=== PATIENT | female | born 1945 | race Caucasian/White ===

== ENCOUNTER → 2017-08-18 10:59 | Outpatient (CLI) | payer MEDICARE, OTHER, SELFPAY ==
--- NOTE | 2017-08-18 | DI.MG.S_ITS ---
BILATERAL DIGITAL SCREENING MAMMOGRAM 3D/2D WITH CAD: 08/18/2017 CLINICAL: Routine screening. Comparison is made to exams dated: 06/24/2016 mammogram, 05/02/2015 mammogram, and 04/20/2015 mammogram - [facility]. There are scattered fibroglandular elements in both breasts. Current study was also evaluated with a Computer Aided Detection (CAD) system. No significant masses, calcifications, or other findings are seen in either breast. There has been no significant interval change. IMPRESSION: NEGATIVE There is no mammographic evidence of malignancy. A 1 year screening mammogram is recommended. This exam was interpreted at Station ID: [id number]. NOTE: For mammograms, a report in lay terms will be sent to the patient. Approximately 15% of breast malignancies will not be visualized mammographically. In the management of a palpable breast mass, a negative mammogram must not discourage biopsy of a clinically suspicious lesion. Electronically Signed By: Manuel zarate/ervin:08/18/2017 12:22:54 letter sent: Normal Exam ACR BI-RADS Category 1: Negative 3341F
== END ==
PROVIDERS: PCP Family Medicine; Visit Provider Family Medicine
DX: Z12.31 Encounter for screening mammogram for malignant neoplasm of breast (principal)
CPT/HCPCS: 77063; 77067

== ENCOUNTER → 2017-09-10 08:22 | Outpatient (CLI) | payer MEDICARE, OTHER, SELFPAY ==
[2017-09-10 09:18] LABS: Add Manual Diff / Slide Review NO; Basophils Percent Auto 0.5 % (0-2); Eosinophils Percent Auto 4.4 % (2-4); Hematocrit 39.9 % (36-46); Hemoglobin 13.3 g/dL (12.0-16.0); Mean Corpuscular HGB Conc 33.4 % (30-36); Mean Corpuscular Volume 83.6 fL (80-100); Monocytes Percent Auto 8.3 % (3-14); Neutrophils Absolute Auto 4100 /uL (3000-5900); Neutrophils Percent Auto 55.8 % (50-75); Platelet Count 368 X10^3/uL (150-400); Red Blood Cell Count 4.77 X10^6/uL (4.0-5.2); Red Cell Distribution Width 13.5 % (11.6-14.8); White Blood Cell Count 7.3 X10^3/uL (4.5-11.0)
[2017-09-10 09:49] LABS: Alanine Aminotransferase 23 IU/L (9-52); Albumin Globulin Ratio 1.2 (1.0-2.8); Alkaline Phosphatase 86 U/L (38-126); Aspartate Aminotransferase 19 IU/L (14-36); BUN Creatinine Ratio 18.6 (6-22); Bilirubin Total 0.8 mg/dL (0.2-1.3); Blood Urea Nitrogen 13 mg/dL (7-17); Calcium 9.3 mg/dL (8.4-10.2); Carbon Dioxide 22 mmol/L (22-32); Chloride 104 mmol/L (98-107); Cholesterol 215 mg/dL (140-199); Estimated Glomerular Filt Rate > 60.0 mL/min (>60); Globulin 3.3 g/dL (1.7-4.1); Glucose 100 mg/dL (80-110); HDL Cholesterol 65 mg/dL (40-60); HEMOLYSIS < 15 (0-50); LDL Cholesterol Calculated 104 mg/dL (<100); Potassium 3.9 mmol/L (3.4-5.1); Sodium 138 mmol/L (137-145); Total Protein 7.3 g/dL (6.3-8.2); Triglycerides 230 mg/dL (35-150)
[2017-09-10 10:09] LABS: TSH w/ Reflex to FT4 1.52 uIU/mL (0.47-4.68)
== END ==
PROVIDERS: PCP Family Medicine; Visit Provider Family Medicine
DX: E78.2 Mixed hyperlipidemia (principal); Z00.00 Encounter for general adult medical examination without abnormal findings
CPT/HCPCS: 36415; 80053; 80061; 84443; 85025

== ENCOUNTER → 2017-09-16 09:51 | Outpatient (CLI) | payer MEDICARE, OTHER, SELFPAY ==
--- NOTE | 2017-09-16 09:54 | DI.RAD.S_ITS ---
PROCEDURE: XR CHEST 2V INDICATIONS: 72 year-old female with dyspnea. TECHNIQUE: 2 views of the chest were acquired. COMPARISON: [facility], CHEST 2 VIEW, 11/24/2013, 10:37. [facility], CHEST 2 VIEW, 02/17/2011, 13:53. [facility], CHEST 2 VIEW, 12/07/2007, 12:48. FINDINGS: Surgical changes and devices: None. Lungs and pleura: No pleural effusions or pneumothorax. Lungs are clear. Mediastinum: Mediastinal contours are normal. Heart size is normal. Bones and chest wall: No suspicious bony abnormalities. There is thoracolumbar spine disc degeneration. Soft tissues appear unremarkable. IMPRESSION: No acute cardiopulmonary disease. Dictated by: Manoj Mooney M.D. on 09/16/2017 at 10:06 Approved by: Manoj Mooney M.D. on 09/16/2017 at 10:07
== END ==
PROVIDERS: PCP Family Medicine; Visit Provider Family Medicine
DX: R06.00 Dyspnea, unspecified (principal); Z68.36 Body mass index [BMI] 36.0-36.9, adult
CPT/HCPCS: 71046

== ENCOUNTER 2017-12-01 09:49 | Day surgery (SDC) | payer MEDICARE, OTHER, SELFPAY ==
[2017-12-01 10:18] VITALS: BP 128/81; PULSE 97; RESP 16; TEMP 36.8; O2SAT 95
[2017-12-01] MEDS: FLEETS ENEMA 1 EACH PR (10:18)
[2017-12-01 10:19] VITALS: BMI 31.9
--- NOTE | 2017-12-01 11:20 | PM.HP.1 ---
History of Present Illness Date Patient Seen: 12/01/17 Time Patient Seen: 11:20 Chief complaint: Colonoscopy; 11530 Narrative: Patient is a woman who had polyps removed at the last colonoscopy 5 years ago. She is here in follow-up. Her father of colon cancer. Patient also has some issues with the hemorrhoids. They sometimes bleed her and she would like to have them treated if possible Patient History Medical History Abnormal chest x-ray (Chronic ~2012) Ankle pain (Chronic) Carpal tunnel syndrome (Chronic ~2008) Chronic back pain (Chronic ~1994) Colon polyps (Chronic ~2012) Eczema (Chronic) Fracture (Chronic) Fractures (Chronic ~2008) Headache (Chronic ~1979) Hearing loss (Chronic ~2008) Hemorrhoid (Chronic ~2009) History of urinary incontinence (Chronic ~2004) Irritable bowel syndrome (Chronic) Recurrent sinusitis (Chronic ~1979) Shoulder pain (Chronic ~2008) Measles (Resolved) Mumps (Resolved ~1951) Rubella (Resolved ~1958) Surgical History History of carpal tunnel repair History of knee replacement History of knee replacement Status post dilation and curettage Family & Social History Family History: Reviewed 12/01/17 by Warner Donahue MD Social History: household members spouse lives independently Yes caregiver/support person Yes: Daughters Tobacco & Substance use: Smoking Status Former smoker alcohol intake current Meds Home Medications Medication Instructions Recorded Confirmed Type Fish Oil (#FISH OIL) #0 02/12/11 09/16/17 History [CO Q10] #0 02/12/11 09/16/17 History cholecalciferol (vitamin D3) 1,000 unit PO QDAY #0 02/12/11 09/16/17 History [Vitamin D3] clobetasol [Temovate] 0.05 % TP SEE INSTRUCTIONS #60 tab 08/06/16 09/16/17 Rx sertraline [Zoloft] 50 mg PO QDAY #45 tab 08/06/16 09/16/17 Rx tolterodine [Detrol LA] 8 mg PO Q DAY #180 tab 09/01/17 09/16/17 Rx multivitamin tablet 1 tab PO DAILY 09/16/17 09/16/17 History vit C 150 mg-vit E 30 unit-lutein 1 cap PO DAILY 09/16/17 09/16/17 History 5 iv-xbnlbiey-aomra 3 150 mg capsule simvastatin [Zocor] 40 mg PO QDAY #90 tab 09/24/17 Rx conjugated estrogens [Premarin] 0.625 mg PO QDAY #90 tab 10/02/17 Rx medroxyprogesterone [Provera] 5 mg PO QDAY #90 tab 10/02/17 Rx Allergies Allergy/AdvReac Type Severity Reaction Status Date / Time dexamethasone [DEXAMETHASONE] Allergy Mild DIZZINESS Verified 12/01/17 10:29 AND DIARRHEA Sulfa (Sulfonamide Allergy Mild ITCHY Verified 12/01/17 10:29 Antibiotics) [SULFA (SULFONAMIDE ANTIBIOTICS)] Review of Systems Review of Systems All systems reviewed & are unremarkable except as noted in HPI and below Exam Vital Signs (past 8 hours): - 12/01/17 10:18 Temperature 98.2 F Pulse Rate 97 H Respiratory Rate 16 Blood Pressure 128/81 H Pulse Oximetry 95 Oxygen Delivery Method Room Air Narrative Exam Narrative: Operative no apparent distress. Her lungs are clear to auscultation. No rales or rhonchi. Heart regular rate and rhythm without murmur gallop. Abdomen is protuberant soft nontender without mass. She is alert and oriented x3. Assessment & Plan Plan: Assessment/Plan Narrative: Colonoscopy. Possible banding. I discussed the procedure with the patient. I have discussed the procedure and the rationale with the patient including risks of bleeding, perforation which would necessitate a major operation, failure to find remove all lesions and the potential to tattoo. They appeared to understand and wished to proceed. I also discussed banding with her. We may or may not do it depending on findings.
--- NOTE | 2017-12-01 11:23 | PM.PREOP ---
Pre-operative Note Interval Note Pre-op Check: Yes History & Physical exam performed today by Physician Changes: No ASA Class (for procedural sedation): II
[2017-12-01] MEDS: MIDAZOLAM 5 MG/5 ML VIAL IV (12:01)
[2017-12-01] MEDS: fentaNYL 250 MCG/5 ML INJ IV (12:01)
--- NOTE | 2017-12-01 12:02 | PM.OP.ENDO ---
Operative Date/Time/Diagnoses Date of procedure: 12/01/17 Time of procedure: 12:02 Pre-op diagnosis: Screening examination. Last exam 5 years ago. History of polyps. Family history colon cancer. Post-op diagnosis: same (Extensive sigmoid diverticulosis with tortuosity. Large external hemorrhoids. Internal hemorrhoids. Not amenable to banding.) Procedure & Clinicians Study performed: Colonoscopy to the ascending colon looking toward the cecum. Same procedure as scheduled: Yes Indications: Screening Surgeon: Warner Donahue Procedure Notes SCOAP/Timeout: Performed Procedure in detail: The patient was placed in the left lateral decubitus position and underwent IV sedation directed by the surgeon consisting of fentanyl and Versed. Digital exam was unremarkable. The scope was inserted and advanced through the rectum into the sigmoid, descending, transverse, and ascending colon.[Navigating through the sigmoid colon was quite difficult. The patient had diverticulosis with significant tortuosity and narrowing. Once through this area things went much smoother except the reached a point where I could advanced no further in the ascending colon. I simply ran out of scope. Multiple maneuvers were attempted including adding a stiffener, repositioning the patient, applying pressure but no matter what I tried I could not advance any further than this. There were small areas in the left colon that I did not see well due to the presence of particulate liquid stool.] The scope was gradually brought out. No Polyps were found. The scope ultimately was retroflexed in the rectum. The appearance was[remarkable for excoriated internal hemorrhoids.]. The scope was removed and the patient tolerated the procedure well. Consider barium study to evaluate the cecal area. Alternatively, the colonoscopy could per be performed in 3 years instead of 5 Scope withdrawal time: Greater than 5 min but not veronica Sedation minutes: 33 Recommendations: Colonscopy in 3 years and Other recommendation (Alternatively patient could have a barium study and if normal have a colonoscopy in 5 years.) Follow up: as needed Disposition: PACU
[2017-12-01 12:09] VITALS: BP 137/87; PULSE 104; RESP 22; TEMP 36.8; O2SAT 95
[2017-12-01 12:13] VITALS: BP 153/90; PULSE 99; RESP 17; TEMP 36.6; O2SAT 96
[2017-12-01 12:18] VITALS: BP 136/97; PULSE 96; RESP 13; TEMP 36.8; O2SAT 97
[2017-12-01 12:40] VITALS: BP 125/81; PULSE 86; RESP 16; TEMP 36.7; O2SAT 95
--- NOTE | 2017-12-01 15:11 | SUR.PHASEII ---
late entry: dr durand to bedside- explained report to both pt and her . pt dressed when ready and left in stable condition. belly soft.
== END 2017-12-01 12:55 | disposition home or self-care (01) ==
PROVIDERS: PCP Family Medicine; Visit Provider Specialist
PROC: 0DJD8ZZ Inspection of Lower Intestinal Tract, Via Natural or Artificial Opening Endoscopic (ICD-10-PCS; CPT 45378; principal; 2017-12-01 10:45)
DX: Z86.010 Personal history of colon polyps (principal); Z80.0 Family history of malignant neoplasm of digestive organs; Z87.891 Personal history of nicotine dependence; K57.30 Diverticulosis of large intestine without perforation or abscess without bleeding; K64.4 Residual hemorrhoidal skin tags; K64.8 Other hemorrhoids
CPT/HCPCS: G0105; 99152; 99153; J2250; J3010

== ENCOUNTER → 2018-09-14 09:15 | Outpatient (CLI) | payer MEDICARE, OTHER, SELFPAY ==
--- NOTE | 2018-09-14 | DI.MG.S_ITS ---
BILATERAL DIGITAL SCREENING MAMMOGRAM 3D/2D WITH CAD: 09/14/2018 CLINICAL: Routine screening. Comparison is made to exams dated: 08/18/2017 mammogram, 06/24/2016 mammogram, 04/20/2015 mammogram, 11/21/2013 mammogram, and 11/03/2012 mammogram - [facility]. The tissue of both breasts is heterogeneously dense. This may lower the sensitivity of mammography. Current study was also evaluated with a Computer Aided Detection (CAD) system. There are multiple oval circumscribed masses in both breasts which appear stable to comparison exams dating back to 08/18/2017 and 06/24/2016. There also is a biopsy clip in the right breast. No new or suspicious masses, calcifications, or other findings are seen in either breast. There has been no significant interval change. IMPRESSION: There is no mammographic evidence of malignancy. A 1 year screening mammogram is recommended. This exam was interpreted at Station ID: [id number]. NOTE: For mammograms, a report in lay terms will be sent to the patient. Approximately 15% of breast malignancies will not be visualized mammographically. In the management of a palpable breast mass, a negative mammogram must not discourage biopsy of a clinically suspicious lesion. Electronically Signed By: Mathtew Haas M.D. ecl/:09/14/2018 12:49:25 letter sent: Normal Exam ACR BI-RADS Category 2: Benign Finding(s) 3342F
== END ==
PROVIDERS: PCP Family Medicine; Visit Provider Family Medicine
DX: Z12.31 Encounter for screening mammogram for malignant neoplasm of breast (principal)
CPT/HCPCS: 77063; 77067

== ENCOUNTER → 2018-09-14 10:01 | Outpatient (CLI) | payer MEDICARE, OTHER, SELFPAY ==
[2018-09-14 11:43] LABS: Add Manual Diff / Slide Review NO; Basophils Absolute Auto 0 /uL (0-100); Basophils Percent Auto 0.5 % (0-2); Eosinophils Absolute Auto 200 /uL (0-450); Eosinophils Percent Auto 3.3 % (2-4); Hemoglobin 13.4 g/dL (12.0-16.0); Lymphocytes Absolute Auto 1900 /uL (1100-4500); Lymphocytes Percent Auto 24.9 % (25-40); Mean Corpuscular HGB Conc 33.4 % (30-36); Mean Corpuscular Hemoglobin 28.3 PG (26-34); Mean Corpuscular Volume 84.7 fL (80-100); Monocytes Absolute Auto 600 /uL (0-900); Monocytes Percent Auto 7.7 % (3-14); Neutrophils Absolute Auto 4800 /uL (1500-7000); Neutrophils Percent Auto 63.6 % (50-75); Platelet Count 389 X10^3/uL (150-400); Red Blood Cell Count 4.72 X10^6/uL (4.0-5.2); Red Cell Distribution Width 13.6 % (11.6-14.8); White Blood Cell Count 7.6 X10^3/uL (4.5-11.0)
[2018-09-14 12:01] LABS: Alanine Aminotransferase 11 IU/L (9-52); Albumin 4.2 g/dL (3.5-5.0); Albumin Globulin Ratio 1.4 (1.0-2.8); Alkaline Phosphatase 86 U/L (38-126); Aspartate Aminotransferase 19 IU/L (14-36); BUN Creatinine Ratio 15.6 (6-22); Bilirubin Total 1.1 mg/dL (0.2-1.3); Blood Urea Nitrogen 14 mg/dL (7-17); Calcium 9.8 mg/dL (8.4-10.2); Carbon Dioxide 27 mmol/L (22-32); Chloride 103 mmol/L (98-107); Cholesterol 210 mg/dL (140-199); Estimated Glomerular Filt Rate > 60.0 mL/min (>60); Glucose 95 mg/dL (80-110); HDL Cholesterol 78 mg/dL (40-60); HEMOLYSIS < 15 (0-50); LDL Cholesterol Calculated 99 mg/dL (<100); Sodium 139 mmol/L (137-145); Total Protein 7.2 g/dL (6.3-8.2); Triglycerides 164 mg/dL (35-150)
[2018-09-14 12:02] LABS: Potassium 5.5 mmol/L (3.4-5.1)
== END ==
PROVIDERS: PCP Family Medicine; Visit Provider Family Medicine
DX: E78.5 Hyperlipidemia, unspecified (principal); Z01.89 Encounter for other specified special examinations; Z13.29 Encounter for screening for other suspected endocrine disorder; Z13.6 Encounter for screening for cardiovascular disorders
CPT/HCPCS: 36415; 80053; 80061; 84443; 85025

== ENCOUNTER → 2018-10-14 10:49 | Outpatient (CLI) | payer MEDICARE, OTHER, SELFPAY ==
--- NOTE | 2018-10-22 17:18 | P.PFT.S_ITS ---
Pulmonary Function Test Referral & Results Date Patient Seen: 10/14/18 Requesting provider: Jc Tomlinson Results: The spirometry demonstrates an FVC of 2.53 L which is 69% of predicted. The FEV1 was measured at 2.02 L which is 78% of predicted. The FEV1/FVC ratio was 86 which is or 113% of predicted. Following the administration of bronchodilator there was 10% improvement in FEV1 and a 70% improvement in FEF 25-75%. Lung volumes show an SVC of 2.47 L which is 77% of predicted. The diffusing capacity was measured at 20.34 which is 70% of predicted. No hemoglobin value was provided, so no correction for potential anemia could be made, if appropriate. The maximum voluntary ventilation was reduced Interpretation: This study demonstrates mild obstructive lung disease based on reduction in FE V1. There is some limited evidence of benefit following bronchodilator particularly small airway flow based on improvement in FEF 25-75% There is mild reduction in lung volumes suggesting mild restrictive lung disease There is also [id number] reduction in diffusing capacity suggesting disease at the capillary alveolar level
== END ==
PROVIDERS: PCP Family Medicine; Visit Provider Family Medicine
DX: R06.02 Shortness of breath (principal)
CPT/HCPCS: 94060; 94726; 94729

== ENCOUNTER → 2018-10-27 09:00 | Outpatient (CLI) | payer MEDICARE, OTHER, SELFPAY ==
--- NOTE | 2018-10-27 09:05 | DI.ECHO.S_ITS ---
[facility]---------[facility] +---------+ : : [address] [place] : : : : [id number] : : : : Phone: [phone]+ Echocardiogram Report + + :Name: MELANI SPAIN Study Date: 10/27/2018 Height: 68 in : :[facility] Exam Location: [facility] Weight: 235 lb : : Gender: Female BSA: 2.2 m2 : :: 1945 Age: 73 yrs BP: 140/82 mmHg: :Reason For Study: SOB/ edema : :Ordering Physician: Dr. Greene : :Davi Performed By: Liilan Page : + + Interpretation Summary 1) Grossly normal left ventricular size, thickness, and systolic function (EF 60-65%). 2) Grossly, normal right ventricular size and function. 3) There is mild aortic stenosis (valve area 1.5cm2, mean gradient 9.4mmHg). 4) The right ventricular systolic pressure is estimated to be at least 25 mmHg based on an estimated right atrial pressure of 3 mm Hg. 5) No prior Echo available for comparison. Procedure: A two-dimensional transthoracic echocardiogram with color flow and Doppler was performed. The study quality was technically adequate. There is no prior echocardiogram noted for this patient. A contrast injection of Definity was performed to improve assessment of LV function. The heart rate ranged between 78-91 bpm during the study. Left Ventricle: The left ventricle is grossly normal in size and thickness. Proximal septal thickening is noted. The ejection fraction is estimated to be 60-65%. Left ventricular systolic function is normal. There are no focal wall motion abnormalities. Right Ventricle: The right ventricle is normal in size and function. Atria: Both atria are normal in size. There is no Doppler evidence for an interatrial shunt. Mitral Valve: The mitral valve leaflets appear mildly thickened, but open well. There is trace mitral regurgitation. Aortic Valve: The aortic valve is not well visualized. The aortic valve is mildly calcified. The peak aortic velocity is 2.0 m/sec. The aortic valve mean gradient is 9.4 mmHg. The calculated aortic valve area is 1.5 cm2. There is mild aortic stenosis. No aortic regurgitation is present. Tricuspid Valve: The tricuspid valve is normal in structure and function. There is trace tricuspid regurgitation. The right ventricular systolic pressure is estimated to be at least 25 mmHg based on an estimated right atrial pressure of 3 mm Hg. Pulmonic Valve: The pulmonic valve is not well visualized. There is trace pulmonic regurgitation. Great Vessels: The aortic root is normal size. The ascending aorta is mildly enlarged. The pulmonary artery is not well visualized, but is probably normal size. The IVC is of normal diameter and collapses greater than 50% with a sniff. This suggests a low right atrial pressure of 3 mm Hg. Pericardium/ Pleura There is no pericardial effusion. There is no pleural effusion. MMode/2D Measurements & Calculations LVIDd: 4.8 cm LVOT diam: 2.0 cm EPSS: 0.43 cm Ao root diam: 3.4 cm IVSd: 1.1 cm asc Aorta Diam: 3.5 cm LVPWd: 0.94 cm LV chacon. diameter/BSA (cm/m^2): 2.2 LA A2 area: 21.5 cm2 RA long axis: 5.6 cm LA A4 area: 22.6 cm2 RA area: 17.8 cm2 LA length (vol): 6.2 cm RA vol: 48.2 ml LA vol: 66.5 ml RA : 22.0 ml/m2 LA vol index: 30.4 ml/m2 RVD1 (basal): 4.3 cm RVD2 (mid): 3.9 cm TAPSE: 2.0 cm Doppler Measurements & Calculations Ao V2 max: 203.2 cm/sec LVOT Max Jimbo: 92.6 cm/sec Ao V2 mean: 149.0 cm/sec LV V1 max P.4 mmHg Ao max P.5 mmHg LV V1 VTI: 19.6 cm Ao mean P.4 mmHg MARILU(I,D): 1.5 cm2 Ao V2 VTI: 41.3 cm MARILU(V,D): 1.5 cm2 sev ratio: 0.47 MARILU indexed to BSA (cm^2/m^2): 0.70 MV E max jimbo: 72.0 cm/sec TR max jimbo: 232.8 cm/sec MV A max jimbo: 111.5 cm/sec TR max P.7 mmHg MV E/A: 0.65 PA V2 max: 66.2 cm/sec Med Peak E' Jimbo: 6.4 cm/sec PA V2 mean: 47.3 cm/sec E/E' med: 11.3 PA mean P.98 mmHg Lat Peak E' Jimbo: 8.3 cm/sec PA Accel Time: 0.08 sec E/E' lat: 8.7 E/e' average: 10.0 MV dec time: 0.13 sec MV P1/2t: 38.5 msec MV /2t max jimbo: 75.1 cm/sec SV(LVOT): 63.0 ml MVA(2t): 5.7 cm2 Reading Physician:02:22 PM
[2018-10-27 09:46] LABS: BUN Creatinine Ratio 16.3 (6-22); Blood Urea Nitrogen 13 mg/dL (7-17); Estimated Glomerular Filt Rate > 60.0 mL/min (>60)
--- NOTE | 2018-10-27 10:09 | DI.CT.S_ITS ---
PROCEDURE: CT CHEST W CON INDICATIONS: shortness of breath TECHNIQUE: After the administration of intravenous contrast, 5 mm thick sections acquired from the pulmonary apices to the posterior costophrenic angles. 1 mm axial lung, 5 mm thick coronal and sagittal reformats and 7 mm axial MIP were acquired. For radiation dose reduction, the following was used: automated exposure control, adjustment of mA and/or kV according to patient size. COMPARISON: [facility], CR, XR CHEST 2V, 09/16/2017, 9:52. [facility], CT, ABDOMEN/PELVIS WITH CONTRAST, 09/24/2010, 8:05. FINDINGS: Image quality: Excellent. Lungs and pleura: No acute air space opacities. Mild dependent interstitial prominence. No honeycombing or bronchiectasis. No pleural effusions or pneumothorax. Central and peripheral airways are patent and normal in caliber. Mediastinum: Heart size is normal. Coronary artery calcifications. No pericardial effusion. No mediastinal or hilar adenopathy by size criteria. Thoracic aorta and central pulmonary arteries are normal in size. No central pulmonary embolism. Esophagus is normal in caliber. No hiatal hernia. Bones and chest wall: No suspicious bony lesions. No vertebral body compression fractures. No axillary or supraclavicular adenopathy by size criteria. Thyroid gland is unremarkable. Abdomen: Visualized upper abdominal solid organs appear normal. Upper abdominal bowel loops are normal in caliber. IMPRESSION: 1. No consolidation to suggest pneumonia. 2. Mild dependent interstitial prominence. Favor atelectasis and less likely early interstitial lung disease. Dedicated high-resolution chest CT with the prone and inspiration and expiration imaging could be performed if clinically indicated. Dictated by: Memo Lopez M.D. on 10/27/2018 at 10:53 Approved by: Memo Lopez M.D. on 10/27/2018 at 11:02
== END ==
PROVIDERS: PCP Family Medicine; Visit Provider Family Medicine
DX: I35.0 Nonrheumatic aortic (valve) stenosis (principal); R06.02 Shortness of breath; R94.2 Abnormal results of pulmonary function studies; R60.9 Edema, unspecified; Z01.812 Encounter for preprocedural laboratory examination
CPT/HCPCS: 36415; 71260; 82565; 84520; C8929; Q9957; Q9967

== ENCOUNTER → 2019-10-11 09:18 | Outpatient (CLI) | payer MEDICARE, OTHER, SELFPAY ==
[2019-10-11 09:31] LABS: Add Manual Diff / Slide Review NO; Basophils Absolute Auto 100 /uL (0-100); Basophils Percent Auto 0.6 % (0-2); Eosinophils Absolute Auto 300 /uL (0-450); Eosinophils Percent Auto 3.1 % (2-4); Hematocrit 41.9 % (36-46); Hemoglobin 13.6 g/dL (12.0-16.0); Lymphocytes Absolute Auto 3000 /uL (1100-4500); Lymphocytes Percent Auto 31.4 % (25-40); Mean Corpuscular HGB Conc 32.5 % (30-36); Mean Corpuscular Hemoglobin 27.5 PG (26-34); Mean Corpuscular Volume 84.3 fL (80-100); Monocytes Absolute Auto 700 /uL (0-900); Monocytes Percent Auto 7.1 % (3-14); Neutrophils Absolute Auto 5500 /uL (1500-7000); Neutrophils Percent Auto 57.8 % (50-75); Platelet Count 398 X10^3/uL (150-400); Red Blood Cell Count 4.97 X10^6/uL (4.0-5.2); Red Cell Distribution Width 13.9 % (11.6-14.8); White Blood Cell Count 9.5 X10^3/uL (4.5-11.0)
[2019-10-11 09:45] LABS: Alanine Aminotransferase 13 IU/L (<35); Albumin 4.2 g/dL (3.5-5.0); Albumin Globulin Ratio 1.4 (1.0-2.8); Alkaline Phosphatase 91 U/L (38-126); Aspartate Aminotransferase 22 IU/L (14-36); BUN Creatinine Ratio 16.9 (6-22); Bilirubin Total 1.1 mg/dL (0.2-1.3); Blood Urea Nitrogen 13 mg/dL (7-17); Calcium 9.8 mg/dL (8.4-10.2); Carbon Dioxide 21 mmol/L (22-32); Chloride 107 mmol/L (98-107); Cholesterol 216 mg/dL (140-199); Estimated Glomerular Filt Rate > 60.0 mL/min (>60); Globulin 2.9 g/dL (1.7-4.1); Glucose 121 mg/dL (80-110); HDL Cholesterol 73 mg/dL (40-60); HEMOLYSIS < 15 (0-50); LDL Cholesterol Calculated 96 mg/dL (<100); Potassium 4.3 mmol/L (3.4-5.1); Sodium 137 mmol/L (137-145); Total Protein 7.1 g/dL (6.3-8.2); Triglycerides 234 mg/dL (35-150)
== END ==
PROVIDERS: PCP Family Medicine; Referring Provider Family Medicine; Visit Provider Family Medicine
DX: E78.5 Hyperlipidemia, unspecified (principal)
CPT/HCPCS: 36415; 80053; 80061; 85025

== ENCOUNTER → 2019-10-22 14:32 | Outpatient (CLI) | payer MEDICARE, OTHER, SELFPAY ==
--- NOTE | 2019-10-22 | DI.MG.S_ITS ---
BILATERAL DIGITAL SCREENING MAMMOGRAM 3D/2D WITH CAD: 10/22/2019 CLINICAL: Routine screening. Comparison is made to exams dated: 09/14/2018 mammogram, 08/18/2017 mammogram, and 06/24/2016 mammogram - [facility]. The tissue of both breasts is heterogeneously dense. This may lower the sensitivity of mammography. Current study was also evaluated with a Computer Aided Detection (CAD) system. There are benign masses in both breasts. There also is a biopsy clip in the right breast. No significant masses, calcifications, or other findings are seen in either breast. There has been no significant interval change. IMPRESSION: There is no mammographic evidence of malignancy. A 1 year screening mammogram is recommended. This exam was interpreted at Station ID: [id number]. NOTE: For mammograms, a report in lay terms will be sent to the patient. Approximately 15% of breast malignancies will not be visualized mammographically. In the management of a palpable breast mass, a negative mammogram must not discourage biopsy of a clinically suspicious lesion. Electronically Signed By: Xander tang/ervin:10/24/2019 09:37:31 letter sent: Normal Exam ACR BI-RADS Category 2: Benign Finding(s) 3342F
== END ==
PROVIDERS: PCP Family Medicine; Referring Provider Family Medicine; Visit Provider Family Medicine
DX: Z12.31 Encounter for screening mammogram for malignant neoplasm of breast (principal)
CPT/HCPCS: 77063; 77067

== ENCOUNTER → 2020-06-12 09:39 | Outpatient (CLI) | payer MEDICARE, OTHER, SELFPAY ==
[2020-06-12 11:23] LABS: BUN Creatinine Ratio 17.7 (6-22); Blood Urea Nitrogen 14 mg/dL (7-17); Calcium 9.3 mg/dL (8.4-10.2); Carbon Dioxide 23 mmol/L (22-32); Chloride 106 mmol/L (98-107); Estimated Glomerular Filt Rate > 60.0 mL/min (>60); Glucose 99 mg/dL (80-110); HEMOLYSIS < 15 (0-50); Potassium 4.1 mmol/L (3.4-5.1); Sodium 135 mmol/L (137-145)
[2020-06-12 11:26] LABS: Hemoglobin A1C% w Est Avg Glu 5.8 % (4.0-6.0)
== END ==
PROVIDERS: Referring Provider Family Medicine; Visit Provider Family Medicine
DX: R73.9 Hyperglycemia, unspecified (principal)
CPT/HCPCS: 36415; 80048; 83036

== ENCOUNTER → 2020-07-12 12:56 | Outpatient (CLI) | payer MEDICARE, OTHER, SELFPAY ==
--- NOTE | 2020-07-12 13:00 | DI.RAD.S_ITS ---
PROCEDURE: XR WRIST LT MIN 3V INDICATIONS: Progressive left wrist pain TECHNIQUE: 4 views of the wrist were acquired. COMPARISON: None. FINDINGS: Bones: No fractures or dislocations. No suspicious bony lesions. There is dkdn-ww-bzdyuskp degenerative joint disease at the radiocarpal joint, triscaphe joint, and 1st carpometacarpal joint. Scaphoid view: Scaphoid is intact. Soft tissues: No suspicious soft tissue calcifications. IMPRESSION: Ljay-yl-ddxxkdod degenerative joint disease. Dictated by: Radha Jose M.D. on 07/12/2020 at 16:47 Approved by: Radha Jose M.D. on 07/12/2020 at 17:09
== END ==
PROVIDERS: PCP Family Medicine; Referring Provider Family Medicine; Visit Provider Family Medicine
DX: M25.532 Pain in left wrist (principal); M19.032 Primary osteoarthritis, left wrist
CPT/HCPCS: 73110

== ENCOUNTER → 2020-10-22 16:18 | Outpatient (CLI) | payer MEDICARE, OTHER, SELFPAY ==
[2020-10-22 17:26] LABS: Add Manual Diff / Slide Review NO; Basophils Absolute Auto 0 /uL (0-100); Basophils Percent Auto 0.6 % (0-2); Eosinophils Absolute Auto 200 /uL (0-450); Eosinophils Percent Auto 2.2 % (2-4); Lymphocytes Absolute Auto 2300 /uL (1100-4500); Lymphocytes Percent Auto 27.5 % (25-40); Mean Corpuscular HGB Conc 33.3 % (30-36); Mean Corpuscular Hemoglobin 28.4 PG (26-34); Mean Corpuscular Volume 85.1 fL (80-100); Monocytes Absolute Auto 800 /uL (0-900); Monocytes Percent Auto 9.3 % (3-14); Neutrophils Absolute Auto 5000 /uL (1500-7000); Neutrophils Percent Auto 60.4 % (50-75); Platelet Count 353 X10^3/uL (150-400); Red Blood Cell Count 4.58 X10^6/uL (4.0-5.2); Red Cell Distribution Width 13.2 % (11.6-14.8); White Blood Cell Count 8.2 X10^3/uL (4.5-11.0)
[2020-10-22 18:12] LABS: Alanine Aminotransferase 13 IU/L (<35); Albumin 4.1 g/dL (3.5-5.0); Albumin Globulin Ratio 1.3 (1.0-2.8); Alkaline Phosphatase 73 U/L (38-126); Aspartate Aminotransferase 24 IU/L (14-36); BUN Creatinine Ratio 18.9 (6-22); Bilirubin Total 0.5 mg/dL (0.2-1.3); Blood Urea Nitrogen 17 mg/dL (7-17); Calcium 9.9 mg/dL (8.4-10.2); Carbon Dioxide 26 mmol/L (22-32); Chloride 107 mmol/L (98-107); Estimated Glomerular Filt Rate > 60.0 mL/min (>60); Globulin 3.2 g/dL (1.7-4.1); Glucose 94 mg/dL (80-110); HEMOLYSIS < 15 (0-50); Potassium 4.7 mmol/L (3.4-5.1); Sodium 139 mmol/L (137-145); Total Protein 7.3 g/dL (6.3-8.2)
[2020-10-22 18:44] LABS: TSH w/ Reflex to FT4 1.05 uIU/mL (0.47-4.68)
== END ==
PROVIDERS: PCP Family Medicine; Referring Provider Family Medicine; Visit Provider Family Medicine
DX: R00.2 Palpitations (principal); T73.3XXA Exhaustion due to excessive exertion, initial encounter
CPT/HCPCS: 36415; 80053; 84443; 85025

== ENCOUNTER → 2020-11-02 14:21 | Outpatient (CLI) | payer MEDICARE, OTHER, SELFPAY ==
--- NOTE | 2020-11-02 14:24 | DI.US.S_ITS ---
PROCEDURE: US CAROTID DOPPLER BI INDICATIONS: VERTIGO TECHNIQUE: Color and pulse Doppler interrogation was performed of both carotid systems, with image documentation and velocity measurements. COMPARISON: None. FINDINGS: Stenosis calculations are based on SRU (Society of Radiologists in Ultrasound) criteria. Right side: Brachial blood pressure: 138/90 mm Hg. Common carotid artery peak systolic velocity: 67 cm/sec. Internal carotid artery peak systolic velocity: 55 cm/sec. Internal carotid artery end diastolic velocity: 20 cm/sec. External carotid artery peak systolic velocity: 77 cm/sec. ICA/CCA peak systolic ratio: 0.83 . Yu scale imaging description: Mild mixed plaque formation at the bifurcation and origin of the extracranial internal carotid artery. Percent internal carotid artery stenosis: No appreciable stenosis.. Vertebral artery: Flow direction is antegrade. Left side: Brachial blood pressure: 142/86 mm Hg. Common carotid artery peak systolic velocity: 67 cm/sec. Internal carotid artery peak systolic velocity: 88 cm/sec. Internal carotid artery end diastolic velocity: 32 cm/sec. External carotid artery peak systolic velocity: 105 cm/sec. ICA/CCA peak systolic ratio: 1.32 . Yu scale imaging description: Mild mixed plaque formation in the left carotid bulb and origin of the left extracranial internal carotid artery. Percent internal carotid artery stenosis: Approximately 25-50 percent. . Vertebral artery: Flow direction is antegrade. IMPRESSION: No hemodynamically significant narrowing of the carotid systems. Dictated by: Stiven Aldrich M.D. on 11/02/2020 at 16:02 Approved by: Stiven Aldrich M.D. on 11/02/2020 at 16:04
== END ==
PROVIDERS: PCP Family Medicine; Referring Provider Family Medicine; Visit Provider Family Medicine
DX: R42 Dizziness and giddiness (principal); R00.2 Palpitations; T73.3XXA Exhaustion due to excessive exertion, initial encounter
CPT/HCPCS: 93880

== ENCOUNTER → 2021-01-02 13:25 | Outpatient (CLI) | payer MEDICARE, OTHER, SELFPAY ==
[2021-01-02 14:35] LABS: COVID19 -Nasal RAPID Negative (Negative)
== END ==
PROVIDERS: PCP Family Medicine; Visit Provider Physician Assistant
DX: Z20.822 Contact with and (suspected) exposure to COVID-19 (principal)
CPT/HCPCS: 87635

== ENCOUNTER → 2021-01-04 10:40 | Outpatient (CLI) | payer MEDICARE, OTHER, SELFPAY ==
--- NOTE | 2021-01-04 | DI.NM.S_ITS ---
PROCEDURE: NM ASHLEY PERF SPECT REST & STR Rest and exercise myocardial perfusion SPECT with gated imaging and ejection fraction RADIOPHARMACEUTICAL: 25.0 mCi Tc-99m sestamibi IV at rest and 27.5 mCi Tc-99m sestamibi IV at peak exercise. A two day-protocol was performed. INDICATIONS: Other chest pain TECHNIQUE: Radiopharmaceutical was injected at peak stress test, and also at rest. SPECT images were obtained. SPECT myocardial perfusion images were displayed in short axis, horizontal long axis, and vertical long axis views. Gated images were reviewed using [employer] software. COMPARISON: None. CARDIAC STRESS: A standard Joshua treadmill exercise tolerance test was performed by the patient under the supervision of an attending staff. The patient exercised for 3 minutes and 36 seconds; functional aerobic impairment (NIKKI) is +43%%. Hemodynamic data: There is normal blood pressure and heart rate response to exercise stress. Patient achieved 110% of maximum predicted heart rate at peak exercise. Symptoms: Patient denied chest pain during exercise. EKG: No diagnostic EKG changes of ischemia; no ectopy. FINDINGS: Raw data: There is good myocardial labeling by radiotracer. No significant motion artifacts. Qytj-bx-ujikn ratio is 0.25 (normal is less than 0.38 for sestamibi tracer, and less than 0.50 for thallium tracer). Left ventricle function: Gated images demonstrate normal left ventricle wall thickening. No segmental wall motion abnormality. No transient ischemic dilation; TID is 0.79 (normal less than 1.3). The left ventricle resting end-diastolic volume is 69 mL. Left ventricle stress ejection fraction is 88%; normal values are above 45%. Myocardial perfusion: There is mildy intense apical defect at rest that improves with stress and nearly resolves with prone imaging, suggesting artifact than true ischemia or infarction. IMPRESSION: Low risk, probably normal treadmill nuclear stress test 1) No perfusion evidence of ischemia or infarction. There is mildy intense apical defect at rest that improves with stress and nearly resolves with prone imaging, suggesting artifact than true ischemia or infarction. 2) Normal left ventricular size, wall motion, and systolic function (EF post stress 88%). 3) No ECG evidence of ischemia. 4) No angina during the study. 5) Significantly reduced exercise tolerance (4.6 METs, NIKKI +43%). Target heart rate achieved. Appropriate BP response to exercise. 6) Compared to the nuclear stress test done 10/15/2010, no significant change. Dictated by: Mily Phipps MD on 01/07/2021 at 16:13 Approved by: Mily Phipps MD on 01/07/2021 at 16:17
== END ==
PROVIDERS: PCP Family Medicine; Referring Provider Internal Medicine Cardiovascular Disease; Visit Provider Internal Medicine Cardiovascular Disease
DX: R07.89 Other chest pain (principal)
CPT/HCPCS: 78452; 93017; A9502

== ENCOUNTER → 2021-01-17 07:52 | Outpatient (CLI) | payer MEDICARE, OTHER, SELFPAY ==
--- NOTE | 2021-01-17 | DI.ECHO.S_ITS ---
[facility] +---------+ : : [address] : : : : [id number] : : : : Phone: [phone]+ Echocardiogram Report + + :Name: MELANI SPAIN Study Date: 01/17/2021 Height: 68 in : :[facility] ReadingLocation: Weight: 231 lb : : Gender: Female BSA: 2.2 m2 : :: 1945 Age: 75 yrs BP: 148/92 mmHg: :Reason For Study: Chest pain, SOB : : Performed By: JOSE FLETCHER : :Referring: PROSPER MACIAS E : + + Interpretation Summary 1) Small normal left ventricular cavity size with mildly increased left ventricular thickness (concentric), and normal systolic function (EF 60-65%). 2) Grossly, normal right ventricular size and function. 3) There is mild aortic stenosis (valve area 1.6cm2, mean gradient 13mmHg). 4) The right ventricular systolic pressure is estimated to be at least 22 mmHg based on an estimated right atrial pressure of 3 mm Hg. 5) Compared to the Echo done 10/27/2018, no significant change. Procedure: A two-dimensional transthoracic echocardiogram with color flow and Doppler was performed. The study quality was technically difficult. Comparison is made with the echocardiogram of 10/27/2018. A contrast injection of Definity was performed to improve assessment of LV function. The patient was in normal sinus rhythm during the exam. Left Ventricle: The left ventricular cavity is small. There is mild concentric left ventricular hypertrophy. There is mild proximal septal thickening noted. Left ventricular systolic function appears normal without focal wall motion abnormalities. The ejection fraction is estimated to be 60- 65%. Right Ventricle: The right ventricle is normal in size and function. Atria: The left atrial size is normal. The right atrium is mildly dilated. There is no Doppler evidence for an interatrial shunt. The thickening of interatrial septum suggests lipomatous hypertrophy. The atrial septum is aneurysmal. Mitral Valve: There is mild mitral annular calcification. There is trace mitral regurgitation. Aortic Valve: The aortic valve is trileaflet. There is mildly reduced leaflet mobility. The aortic valve is mildly calcified. The peak aortic velocity is 2.4 m/sec. The aortic valve mean gradient is 13 mmHg. There is mild aortic stenosis. There is trace aortic regurgitation. Tricuspid Valve: The tricuspid valve is normal. There is trace tricuspid regurgitation. The right ventricular systolic pressure is estimated to be at least 22 mmHg based on an estimated right atrial pressure of 3 mm Hg. Pulmonic Valve: The pulmonic valve leaflets are thin and pliable; valve motion is normal. There is a trace or physiologic amount of pulmonic regurgitation. Great Vessels: The aortic root is normal size. The ascending aorta is normal in size. The aortic arch is normal in size. The IVC is of normal diameter and collapses greater than 50% with a sniff. This suggests a low right atrial pressure of 3 mm Hg. Pericardium/ Pleura There is no pericardial effusion. There is an anterior echo-free space consistent with a fat pad. There is no pleural effusion. MMode/2D Measurements & Calculations LVIDd: 2.2 cm LVOT diam: 1.9 cm LVIDs: 1.5 cm Ao root diam: 2.7 cm FS: 32.6 % asc Aorta Diam: 3.5 cm IVSd: 1.1 cm Ao Arch Diam (Prox Trans): 2.3 cm LVPWd: 1.2 cm LV chacon. diameter/BSA (cm/m^2): 1.0 LV sys. diameter/BSA (cm/m^2): 0.70 LA A2 area: 15.8 cm2 RA long axis: 4.1 cm LA A4 area: 17.7 cm2 RA area: 15.7 cm2 LA length (vol): 5.2 cm RA vol: 51.4 ml LA vol: 45.2 ml RA : 23.7 ml/m2 LA vol index: 20.8 ml/m2 IVC diam: 1.7 cm RVD1 (basal): 3.2 cm TAPSE: 2.1 cm Doppler Measurements & Calculations Ao V2 max: 242.4 cm/sec LVOT Max Jimbo: 137.5 cm/sec Ao V2 mean: 173.1 cm/sec LV V1 max P.6 mmHg Ao max P.5 mmHg LV V1 VTI: 26.0 cm Ao mean P.0 mmHg MARILU(I,D): 1.6 cm2 Ao V2 VTI: 44.8 cm MARILU(V,D): 1.6 cm2 sev ratio: 0.58 MARILU indexed to BSA (cm^2/m^2): 0.75 MV E max jimbo: 69.5 cm/sec TR max jimbo: 216.8 cm/sec MV A max jimbo: 102.0 cm/sec TR max P.8 mmHg MV E/A: 0.68 PA V2 max: 83.7 cm/sec Med Peak E' Jimbo: 4.7 cm/sec PA V2 mean: 66.0 cm/sec E/E' med: 14.7 PA mean P.8 mmHg Lat Peak E' Jimbo: 8.5 cm/sec PA pr(Accel): 31.0 mmHg E/E' lat: 8.1 E/e' average: 11.4 MV dec time: 0.19 sec SV(LVOT): 72.7 ml Reading Physician:10:26 AM
== END ==
PROVIDERS: PCP Family Medicine; Referring Provider Internal Medicine Cardiovascular Disease; Visit Provider Internal Medicine Cardiovascular Disease
DX: R06.02 Shortness of breath (principal); I35.0 Nonrheumatic aortic (valve) stenosis
CPT/HCPCS: 93306; Q9957

== ENCOUNTER → 2021-01-28 08:40 | Outpatient (CLI) | payer MEDICARE, OTHER, SELFPAY ==
[2021-01-28 10:35] LABS: Cholesterol 201 mg/dL (140-199); HDL Cholesterol 64 mg/dL (40-60); LDL Cholesterol Calculated 94 mg/dL (<100); Triglycerides 217 mg/dL (35-150)
== END ==
PROVIDERS: PCP Family Medicine; Referring Provider Internal Medicine Cardiovascular Disease; Visit Provider Internal Medicine Cardiovascular Disease
DX: E78.5 Hyperlipidemia, unspecified (principal)
CPT/HCPCS: 36415; 80061

== ENCOUNTER 2021-05-13 13:15 | Observation (INO) | payer MEDICARE, OTHER, SELFPAY ==
[2021-05-13 13:25] VITALS: BP 141/72; PULSE 84; RESP 20; TEMP 37; O2SAT 98
--- NOTE | 2021-05-13 13:25 | DI.RAD.S_ITS ---
PROCEDURE: XR CHEST 1V INDICATIONS: Possible stroke TECHNIQUE: One view of the chest was acquired. COMPARISON: [facility], CT, CT CHEST W CON, 10/27/2018, 10:26. [facility], CR, XR CHEST 2V, 09/16/2017, 9:52. [facility], CR, XR CHEST 2 VIEWS, 02/14/2021, 14:51. FINDINGS: Surgical changes and devices: None. Lungs and pleura: Lungs are clear. No pleural effusions or pneumothorax. Mediastinum: Mediastinal contours appear normal. Heart size is normal. Bones and chest wall: No suspicious bony lesions. Overlying soft tissues appear unremarkable. IMPRESSION: No acute cardiopulmonary disease. Dictated by: Radha Jose M.D. on 05/13/2021 at 13:48 Approved by: Radha Jose M.D. on 05/13/2021 at 13:50
--- NOTE | 2021-05-13 13:36 | DI.CT.S_ITS ---
PROCEDURE: CT HEAD/BRAIN WO CON INDICATIONS: stroke symptoms w/ nausea TECHNIQUE: Noncontrast 4.5 mm thick angled axial sections acquired from the foramen magnum to the vertex, with coronal and sagittal reformats. For radiation dose reduction, the following was used: automated exposure control, adjustment of mA and/or kV according to patient size. COMPARISON: [facility], CT, ANGIO HEAD, 09/27/2010, 7:46. FINDINGS: Image quality: Excellent. CSF spaces: Basal cisterns are patent. No extra-axial fluid collections. The ventricles are symmetric in size and shape. Brain: No intracranial bleeds or masses. There is moderate cerebral volume loss for age, with resultant ventricular and sulcal prominence. There are moderate to severe periventricular and deep white matter chronic small vessel ischemic changes. There is intracranial internal carotid artery atherosclerosis. Skull and face: Calvarium and visualized facial bones appear intact, without suspicious lesions. Sinuses: Visualized sinuses and mastoids are clear. IMPRESSION: 1. No acute intracranial abnormalities. 2. Cerebral volume loss and chronic microvascular ischemic changes. Dictated by: Radha Jose M.D. on 05/13/2021 at 13:45 Approved by: Radha Jose M.D. on 05/13/2021 at 13:48
[2021-05-13 14:06] LABS: Add Manual Diff / Slide Review NO; Basophils Absolute Auto 0 /uL (0-100); Basophils Percent Auto 0.4 % (0-2); Eosinophils Absolute Auto 200 /uL (0-450); Eosinophils Percent Auto 2.3 % (2-4); Hematocrit 40.4 % (36-46); Hemoglobin 13.6 g/dL (12.0-16.0); Lymphocytes Absolute Auto 1800 /uL (1100-4500); Mean Corpuscular HGB Conc 33.5 % (30-36); Mean Corpuscular Hemoglobin 28.5 PG (26-34); Mean Corpuscular Volume 84.9 fL (80-100); Monocytes Absolute Auto 600 /uL (0-900); Monocytes Percent Auto 7.8 % (3-14); Neutrophils Absolute Auto 4700 /uL (1500-7000); Neutrophils Percent Auto 64.5 % (50-75); Platelet Count 356 X10^3/uL (150-400); Red Blood Cell Count 4.76 X10^6/uL (4.0-5.2); Red Cell Distribution Width 13.3 % (11.6-14.8); White Blood Cell Count 7.3 X10^3/uL (4.5-11.0)
[2021-05-13 14:13] LABS: INR 1.1 (0.9-1.3); Prothrombin Time 12.3 SECONDS (10.1-12.7)
[2021-05-13 14:16] LABS: PTT Partial Thromboplastin Tim 31 SECONDS (26.4-36.2)
[2021-05-13 14:30] LABS: Alanine Aminotransferase 15 IU/L (<35); Albumin 4.3 g/dL (3.5-5.0); Albumin Globulin Ratio 1.3 (1.0-2.8); Alkaline Phosphatase 59 U/L (38-126); Aspartate Aminotransferase 25 IU/L (14-36); BUN Creatinine Ratio 17.8 (6-22); Blood Urea Nitrogen 13 mg/dL (7-17); Calcium 9.9 mg/dL (8.4-10.2); Carbon Dioxide 28 mmol/L (22-32); Chloride 106 mmol/L (98-107); Creatine Kinase 41 U/L (30-135); Estimated Glomerular Filt Rate > 60.0 mL/min (>60); Globulin 3.3 g/dL (1.7-4.1); Glucose 111 mg/dL (80-110); HEMOLYSIS < 15 (0-50); Potassium 4.7 mmol/L (3.4-5.1); Sodium 139 mmol/L (137-145); Total Protein 7.6 g/dL (6.3-8.2)
[2021-05-13 14:41] LABS: Troponin I < 0.012 ng/mL (0.01-0.034)
[2021-05-13 14:44] LABS: COVID19 -Nasal RAPID Negative (Negative)
--- NOTE | 2021-05-13 14:50 | DI.CT.S_ITS ---
PROCEDURE: CT ANGIO HEAD AND NECK INDICATIONS: right sided weakness TECHNIQUE: Noncontrast images were performed earlier in the day and not repeated. After the administration of intravenous contrast, 1 mm thick sections acquired from the aortic arch through the [place]. Post-contrast 4.5 mm thick sections then re-acquired from the foramen magnum to the vertex. 3-dimensional sleoeue-pdgsutffy-dyqasaufiv (MIP) and/or volume rendering reformats were acquired of the central intracranial vasculature and neck separately. COMPARISON: [facility], MR, BRAIN WITH AND WITHOUT CONTRAS, 09/24/2010, 8:23. [facility], CT, CT HEAD/BRAIN WO CON, 05/13/2021, 13:33. [facility], CT, ANGIO HEAD, 09/27/2010, 7:46. FINDINGS: Image quality: Excellent. BRAIN: CSF spaces: Ventricles are normal in size and shape. Basal cisterns are patent. No extra-axial fluid collections. Brain: No midline shift. No intracranial bleeds or masses. Yu-white matter interface appears intact. Skull and face: Calvarium and facial bones appear intact, without suspicious lesions. Orbits appear normal. Sinuses: Sinuses and mastoids are clear. HEAD CT ANGIOGRAPHY: Anterior circulation: Intracranial internal carotid arteries are normal in size and flow. Tortuosity is again noted of the right cavernous internal carotid artery. No aneurysm is seen at this site. The flow within the paired anterior cerebral arteries is normal and symmetric. The flow within the middle cerebral arteries is normal and symmetric. The anterior communicating artery is seen. No aneurysms are seen. Posterior circulation: Visualized portions of the vertebral arteries demonstrate normal caliber, and join to form a normal appearing basilar artery. Flow within the posterior cerebral arteries is normal and symmetric. No aneurysms are seen. NECK CT ANGIOGRAPHY: Carotid system: The great vessels demonstrate a conventional anatomy as they arise from the aortic arch. The origins of the common carotid arteries appear patent. The common carotid arteries demonstrate normal caliber and courses. The left carotid bifurcation region demonstrates focal atherosclerotic calcification, with approximately 40% luminal narrowing. No significant abnormality of right carotid bifurcation region can be seen. The more distal internal carotid arteries demonstrate normal course and caliber. Posterior circulation: The origins of the vertebral arteries both appear widely patent. The more superior extracranial portions of both vertebral arteries also demonstrate normal courses and calibers. They join to form a normal appearing basilar artery. Soft tissues: Visualized neck soft tissues demonstrate no suspicious abnormalities. Bones: No suspicious bony lesions. Visualized cervical spine appears normally aligned. Focal moderate cervical spine degenerative change can be seen. IMPRESSION: No significant intracranial arterial abnormality is seen. Within the arteries of the neck, no hemodynamically significant stenosis can be seen. Incidental note is made of: Cervical spine degenerative change Any quantitative measurements of stenosis were performed using NASCET criteria. Dictated by: Jose Hagen M.D. on 05/13/2021 at 13:58 Approved by: Jose Hagen M.D. on 05/13/2021 at 14:03
--- NOTE | 2021-05-13 17:34 | ED_ITS ---
HPI - Neuro Symptoms/Deficit General Chief Complaint: Neuro Symptoms/Deficit Stated Complaint: Rt Sided Weakness, Sent From [facility] Time Seen by Provider: 05/13/21 13:54 Source: patient Mode of arrival: Ambulatory Limitations: no limitations History of Present Illness HPI Narrative: This is a pleasant 76-year-old female comes emergency department with complaint of right-sided weakness that started on Thursday, 3 days ago. Patient states she noticed during the day that she had increasing issues with balance on her right side particularly her right lower extremity has been weak and wobbly and she has been eating assistance trying to ambulate in the and having quite a bit of pain. She has had some right hip pain longstanding but she does not have increased pain down the leg. She has also noted some right upper extremity weakness although not as pronounced. She has also had chronic dizziness which had became more pronounced 3 days ago she has had some mild nausea but no vomiting. She denies any facial droop or changes to speech. She denies any chest pain or pressure. No shortness of breath. No vomiting. No new issues with bowel movements or urination. She denies any numbness or tingling. She take Zocor but does not have any known cardiac history arrhythmias, she is on Zoloft, Premarin a bladder pill and 1 additional medication she denies any hypertension or dyslipidemia otherwise. She has had bilateral knee replacement approximately [address] Barrera is her primary care physician she normally lives independently at home with her . She normally walks without a walker and does not require any assistance. On Anticoagulants: No Related Data Home Medications Medication Instructions Recorded Confirmed Fish Oil (#FISH OIL) #0 02/12/11 05/13/21 [CO Q10] #0 02/12/11 05/13/21 cholecalciferol (vitamin D3) 25 1,000 unit PO QDAY #0 02/12/11 05/13/21 mcg (1,000 unit) tablet (Vitamin D3) multivitamin 1 tab PO DAILY 09/16/17 05/13/21 vit C 150 mg-vit E 30 unit-lutein 1 cap PO DAILY 09/16/17 05/13/21 5 [id number] 3 150 mg capsule (Ocuvite) ResMed Airsense 10 CPAP #1 ea 02/09/19 05/13/21 Previous Rx's Medication Instructions Recorded conjugated estrogens 0.3 mg tablet 0.3 mg PO QDAY #90 tab 12/24/20 medroxyprogesterone 2.5 mg tablet 2.5 mg PO QDAY #90 tab 12/24/20 sertraline 50 mg tablet 50 mg PO DAILY #90 tab 12/25/20 simvastatin 40 mg tablet 40 mg PO DAILY #90 tab 12/25/20 albuterol sulfate 90 mcg/actuation 1 puff INHALATION Q6H PRN #8.5 g 04/08/21 aerosol inhaler (ProAir HFA) amlodipine 2.5 mg tablet 2.5 mg PO DAILY #30 tab 04/08/21 oxybutynin chloride 5 mg tablet See Rx Instructions PO BID #90 tab 04/08/21 Allergies Allergy/AdvReac Type Severity Reaction Status Date / Time dexamethasone [DEXAMETHASONE] Allergy Mild DIZZINESS Verified 05/13/21 12:47 AND DIARRHEA Sulfa (Sulfonamide Allergy Mild ITCHY Verified 05/13/21 12:47 Antibiotics) [SULFA (SULFONAMIDE ANTIBIOTICS)] Review of Systems Review of Systems ROS Unobtainable: All systems reviewed & are unremarkable except as noted in HPI and below Hematologic/Lymphatic On Anticoagulants: No Patient History Medical History Abnormal chest x-ray (~2012) Ankle pain Carpal tunnel syndrome (~2008) Chronic back pain (~1994) Colon polyps (~2012) Depression Eczema Fracture Fractures (~2008) GERD (gastroesophageal reflux disease) Headache (~1979) Hearing loss (~2008) Hemorrhoid (~2009) History of urinary incontinence (~2004) Irritable bowel syndrome Left wrist pain Measles Mumps (~1951) Obesity (BMI 30-39.9) Obstructive sleep apnea On postmenopausal hormone replacement therapy Preventative health care Recurrent sinusitis (~1979) Right upper quadrant abdominal pain Rubella (~1958) Shoulder pain (~2008) Surgical History History of carpal tunnel repair History of knee replacement History of knee replacement Status post dilation and curettage Family History Brother Age: 77 Heart disease Father Cancer Mother No problems noted. 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 ) substance use type: does not use Smoking Status: Former smoker Exam Narrative Exam Narrative: GEN: well nourished, well appearing female, alert and oriented x 3, patient appears to be in mild distress. HEENT: Atraumatic, pupils are equal round reactive to light, extraocular movements are intact, nares are clear, TMs are clear with no fluid, there is no conjunctival pallor. Throat is clear without any exudates, erythema, tonsillar enlargement or uvular deviation, no facial droop. HEART: Regular rate and rhythm without murmur, clicks, rubs. LUNGS:Lungs clear to auscultation, no wheezes, rales, crackles, chest moves symmetrically ABD:bowel sounds normal, soft, non-tender, no guarding, rebound, rigidity, no masses noted, no hepatosplenomegaly :No CVA tenderness MSCL: Non-tender, no muscle atrophy, patient has normal range of motion of upper extremities. She has a yearly mild drift on the right slightly decreased nutrition professor on the right upper extremity. Right lower extremity patient has drift but is able to lift her leg against gravity on the right. NEURO:CN 2-12 intact, sensation normal except for slight difference of the right upper extremity in comparison to the left. Finger nose finger test normal, heel fontaine test normal with left foot but patient has quite a bit of difficulty with the right. Initial Vital Signs Initial Vital Signs: Vital Signs Temperature 98.6 F 05/13/21 13:25 Pulse Rate 84 05/13/21 13:25 Respiratory Rate 20 05/13/21 13:25 Blood Pressure 141/72 H 05/13/21 13:25 Pulse Oximetry 98 05/13/21 13:25 Scores NIH Stroke Scale Level of Conciousness: Alert, keenly responsive Ask month/age: Answers both questions correctly. Open/close eyes, close hand: Performs both tasks correctly Best gaze horizontal: Normal Visual foreman: No visual loss Facial palsy: Normal symetrical movement Left arm drift: No drift for full 10 sec Right arm drift: Drifts down, not to bed Left leg drift: No drift for full 5 sec Right leg drift: Some effort against gravity, cannot maintain, drifts down to bed Limb ataxia: Present in one limb Sensory on face/arms/legs: Mild to moderate sensory loss, can tell touch Best language: No aphasia, normal Dysarthria: Normal Extinction or inattention: No abnormality Total NIH Stroke scale score: 5 Course Orders Ordered: ED Orders 05/13/21 13:25 XR chest 1V Stat Urine Drug Screen, Rapid Stat 05/13/21 13:36 CT head/brain wo con Stat 05/13/21 13:50 Complete Blood Count AUTO DIFF Stat Comprehensive Metabolic Panel Stat Partial Thromboplastin Time Stat Prothrombin Time INR Stat Troponin & CK Cardiac Panel Stat 05/13/21 14:04 EKG-12 Lead Stat 05/13/21 14:21 COVID19 -Nasal swab/Pre-Proc Stat 05/13/21 14:50 CT angio head and neck Stat Discontinued Medications Aspirin (Aspirin 81 Mg Chew Tab) 324 mg PO NOW ONE Stop: 05/13/21 17:58 Consultations Consultation #1: Dr. Lopes, accepts for observation for CVA. Head CT and CT angio are negative, labs showed no acute changes. Aspirin initiated. Vital Signs Vital signs: Vital Signs - 8 hr 05/13/21 13:25 Temperature 98.6 F Pulse Rate 84 Respiratory Rate 20 Blood Pressure 141/72 H Pulse Oximetry 98 MDM - Neuro Symptoms/Deficit Lab Data Result diagrams: 05/13/21 13:50 05/13/21 13:50 Labs: Lab Results 05/13/21 05/13/21 05/13/21 Range/Units 13:50 13:50 13:50 WBC 7.3 (4.5-11.0) X10^3/uL RBC 4.76 (4.0-5.2) X10^6/uL Hgb 13.6 (12.0-16.0) g/dL Hct 40.4 (36-46) % MCV 84.9 (80-100) fL MCH 28.5 (26-34) PG MCHC 33.5 (30-36) % RDW 13.3 (11.6-14.8) % Plt Count 356 (150-400) X10^3/uL Neut % (Auto) 64.5 (50-75) % Lymph % (Auto) 25.0 (25-40) % Buchanan % (Auto) 7.8 (3-14) % Eos % (Auto) 2.3 (2-4) % Baso % (Auto) 0.4 (0-2) % Neut # (Auto) 4700 (2299-5486) /uL Lymph # (Auto) 1800 (6749-6025) /uL Buchanan # (Auto) 600 (0-900) /uL Eos # (Auto) 200 (0-450) /uL Baso # (Auto) 0 (0-100) /uL PT 12.3 (10.1-12.7) SECONDS INR 1.1 (0.9-1.3) APTT 31 (26.4-36.2) SECONDS Sodium 139 (137-145) mmol/L Potassium 4.7 (3.4-5.1) mmol/L Chloride 106 (98-107) mmol/L Carbon Dioxide 28 (22-32) mmol/L BUN 13 (7-17) mg/dL Creatinine 0.73 (0.52-1.04) mg/dL Estimated GFR > 60.0 (>60) mL/min BUN/Creatinine Ratio 17.8 (6-22) Glucose 111 H (80-110) mg/dL Calcium 9.9 (8.4-10.2) mg/dL Total Bilirubin 1.0 (0.2-1.3) mg/dL AST 25 (14-36) IU/L ALT 15 (<35) IU/L Alkaline Phosphatase 59 (38-126) U/L Total Creatine Kinase 41 (30-135) U/L CK-MB (CK-2) TNP CK-MB (CK-2) Rel Index TNP Troponin I < 0.012 (0.01-0.034) ng/mL Total Protein 7.6 (6.3-8.2) g/dL Albumin 4.3 (3.5-5.0) g/dL Globulin 3.3 (1.7-4.1) g/dL Albumin/Globulin Ratio 1.3 (1.0-2.8) SARS-CoV-2 (PCR) (Negative) 05/13/21 Range/Units 14:21 WBC (4.5-11.0) X10^3/uL RBC (4.0-5.2) X10^6/uL Hgb (12.0-16.0) g/dL Hct (36-46) % MCV (80-100) fL MCH (26-34) PG MCHC (30-36) % RDW (11.6-14.8) % Plt Count (150-400) X10^3/uL Neut % (Auto) (50-75) % Lymph % (Auto) (25-40) % Buchanan % (Auto) (3-14) % Eos % (Auto) (2-4) % Baso % (Auto) (0-2) % Neut # (Auto) (6855-8843) /uL Lymph # (Auto) (0182-9170) /uL Buchanan # (Auto) (0-900) /uL Eos # (Auto) (0-450) /uL Baso # (Auto) (0-100) /uL PT (10.1-12.7) SECONDS INR (0.9-1.3) APTT (26.4-36.2) SECONDS Sodium (137-145) mmol/L Potassium (3.4-5.1) mmol/L Chloride (98-107) mmol/L Carbon Dioxide (22-32) mmol/L BUN (7-17) mg/dL Creatinine (0.52-1.04) mg/dL Estimated GFR (>60) mL/min BUN/Creatinine Ratio (6-22) Glucose (80-110) mg/dL Calcium (8.4-10.2) mg/dL Total Bilirubin (0.2-1.3) mg/dL AST (14-36) IU/L ALT (<35) IU/L Alkaline Phosphatase (38-126) U/L Total Creatine Kinase (30-135) U/L CK-MB (CK-2) CK-MB (CK-2) Rel Index Troponin I (0.01-0.034) ng/mL Total Protein (6.3-8.2) g/dL Albumin (3.5-5.0) g/dL Globulin (1.7-4.1) g/dL Albumin/Globulin Ratio (1.0-2.8) SARS-CoV-2 (PCR) Negative (Negative) Imaging Data CT scan - head: Radiologist's Impression: [address] [address] XRay Report Signed Patient: Jorge Burr MR#: [id number] : 08/19/1943 Acct:[id number] Age/Sex: 77 / M Date of Service: 05/13/21 Loc: ED Accession Number: [id number] ?? Procedure: XR chest 1V Ordering Provider: Irasema Conway D.O. PROCEDURE:? XR CHEST 1V ? INDICATIONS:? chest pain ? TECHNIQUE:? One view of the chest was acquired.? ? COMPARISON:? [facility], CT, CT KIDNEY URETER BLADDER (KUB), 02/02/2020, 9:51.? Outside Film, CR, XR CHEST 1 VIEW, 06/19/2018, 6:05.? [facility], CR, XR CHEST 1V, 06/17/2018, 4:45. ? FINDINGS:? ? Surgical changes and devices:? Pacemaker. ? Lungs and pleura:? Minimal appearance of patchy bibasilar/retrocardiac opacities. ? Mediastinum:? Mediastinal contours appear normal.? Heart size is enlarged. ? Bones and chest wall:? No suspicious bony lesions.? Overlying soft tissues appear unremarkable.? ? IMPRESSION:? Patchy bibasilar/retrocardiac opacities as above most suggestive of pneumonia. ? ? Dictated by: Lucretia Garcia M.D. on 05/13/2021 at 15:12 ? ? Approved by: Lucretia Garcia M.D. on 05/13/2021 at 15:13?? CTA - brain/neck: Radiologist's Impression: [address] [address] [address] Scan Report Signed Patient: Michelle Tripathi MR#: [id number] : 1945 Acct:[id number] Age/Sex: 76 / F Date of Service: 05/13/21 Loc: ED Accession Number: [id number] ?? Procedure: CT angio head and neck Ordering Provider: Irasema Conway D.O. PROCEDURE:? CT ANGIO HEAD AND NECK ? INDICATIONS:? right sided weakness ? TECHNIQUE:? Noncontrast images were performed earlier in the day and not repeated.? ? After the administration of intravenous contrast, 1 mm thick sections acquired from the aortic arch through the [place] of [place].? Post-contrast 4.5 mm thick sections then re- acquired from the foramen magnum to the vertex.? 3-dimensional wpjbdso-rjbtdjnhq-wrlwvxolks (MIP) and/or volume rendering reformats were acquired of the central intracranial vasculature and neck separately. ? COMPARISON:? [facility], MR, BRAIN WITH AND WITHOUT CONTRAS, 09/24/2010, 8:23.? [facility], CT, CT HEAD/BRAIN WO CON, 05/13/2021, 13:33.? [facility], CT, ANGIO HEAD, 09/27/2010, 7:46. ? FINDINGS:? Image quality:? Excellent.? ? BRAIN:? CSF spaces:? Ventricles are normal in size and shape.? Basal cisterns are patent.? No extra-axial fluid collections.? ? Brain:? No midline shift.? No intracranial bleeds or masses.? Yu-white matter interface appears intact.? ? Skull and face:? Calvarium and facial bones appear intact, without suspicious lesions.? Orbits appear normal.? ? Sinuses:? Sinuses and mastoids are clear.? ? HEAD CT ANGIOGRAPHY:? Anterior circulation:? Intracranial internal carotid arteries are normal in size and flow.? Tortuosity is again noted of the right cavernous internal carotid artery.? No aneurysm is seen at this site.? The flow within the paired anterior cerebral arteries is normal and symmetric.? The flow within the middle cerebral arteries is normal and symmetric.? The anterior communicating artery is seen.? No aneurysms are seen.? ? Posterior circulation:? Visualized portions of the vertebral arteries demonstrate normal caliber, and join to form a normal appearing basilar artery.? Flow within the posterior cerebral arteries is normal and symmetric.? No aneurysms are seen.? ? NECK CT ANGIOGRAPHY:? Carotid system:? The great vessels demonstrate a conventional anatomy as they arise from the aortic arch.? The origins of the common carotid arteries appear patent.? The common carotid arteries demonstrate normal caliber and courses.? The left carotid bifurcation region demonstrates focal atherosclerotic calcification, with approximately 40% luminal narrowing.? No significant abnormality of right carotid bifurcation region can be seen. The more distal internal carotid arteries demonstrate normal course and caliber.? ? Posterior circulation:? The origins of the vertebral arteries both appear widely patent.? The more superior extracranial portions of both vertebral arteries also demonstrate normal courses and calibers.? They join to form a normal appearing basilar artery.? ? Soft tissues:? Visualized neck soft tissues demonstrate no suspicious abnormalities.? ? Bones:? No suspicious bony lesions.? Visualized cervical spine appears normally aligned.? Focal moderate cervical spine degenerative change can be seen. ? ? IMPRESSION:? No significant intracranial arterial abnormality is seen.? ? Within the arteries of the neck, no hemodynamically significant stenosis can be seen. ? Incidental note is made of: Cervical spine degenerative change ? Any quantitative measurements of stenosis were performed using NASCET criteria.? ? ? Dictated by: Jose Hagen M.D. on 05/13/2021 at 13:58 ? ? Approved by: Jose Hagen M.D. on 05/13/2021 at 14:03?? ECG Data Attestation: I personally reviewed and interpreted this ECG as follows: Interpretation: Sinus rhythm, rate of 79 NH 166, QRS is [address] QTC [address] No acute ST elevation or depression. MDM Narrative Medical decision making narrative: This is a 76-year-old female with symptoms consistent with right-sided stroke. Patient has not had resolution of her symptoms. She is not a tPA candidate her symptoms occurred [address] and angio are negative, labs show no acute changes. Aspirin was initiated in the department. She does not have any obvious arrhythmias. Labs do not show any acute changes that would cause her symptoms today. COVID swab is negative. Case discussed with hospitalist who k indly accepts for observation. Stroke Core Measures Exclusion Criteria TPA in CVA: Symptom Onset >3 or 4.5 Hours Discharge Plan Departure Patient Disposition: Admitted as Observation Clinical Impression: Acute CVA (cerebrovascular accident) Admit Date/Time: 05/13/21 18:06 Admit Provider: Malik Lopes
[2021-05-13 18:25] VITALS: BMI 34.7
[2021-05-13] MEDS: ASPIRIN 81 MG CHEW TAB 324 MG PO (18:52)
[2021-05-13 18:57] LABS: UR Morphine/Opiate cutoff 300 Negative (Negative); Ur Creatinine Normal (Normal); Ur Specific Gravity Normal (Normal); Urine Amphetamines Negative (Negative); Urine Barbiturates Negative (Negative); Urine Benzodiazepines Negative (Negative); Urine Cocaine Negative (Negative); Urine MDMA Negative (Negative); Urine Methadone Negative (Negative); Urine Methamphetamines Negative (Negative); Urine Oxycodone Negative (Negative); Urine Phencyclidine Negative (Negative); Urine Tetrahydrocannabinol Negative (Negative); Urine Tricyclic Antidepressant Negative (Negative); Urine pH Normal (Normal)
[2021-05-13 19:16] VITALS: BP 136/64; PULSE 64; RESP 18; O2SAT 96
[2021-05-13 19:33] LABS: Cholesterol 196 mg/dL (140-199); HDL Cholesterol 62 mg/dL (40-60); LDL Cholesterol Calculated 93 mg/dL (<100); Triglycerides 205 mg/dL (35-150)
[2021-05-13 19:45] VITALS: BP 130/80; PULSE 75; RESP 18; TEMP 36.3; O2SAT 97
[2021-05-13 22:54] VITALS: O2SAT 95
[2021-05-13] MEDS: OXYBUTYNIN 5 MG TABLET PO (23:06)
[2021-05-13] MEDS: SERTRALINE 50 MG TABLET PO (23:06)
[2021-05-14] VITALS (9 sets, daily range): BP systolic 136–142; BP diastolic 70–82; PULSE 82–84; RESP 14–18; TEMP 36.3–36.6; O2SAT 93–96
--- NOTE | 2021-05-14 | DI.MRI.S_ITS ---
PROCEDURE: MR HEAD/BRAIN WO CON INDICATIONS: CVA TECHNIQUE: Non-contrast axial T1 spin echo, axial T2 fast spin echo, sagittal and axial FLAIR, coronal T2 fast spin echo, axial gradient echo, axial diffusion and ADC through the brain. COMPARISON: CT head 05/13/2021 FINDINGS: Image quality: Excellent. CSF spaces: Ventricles appear symmetric in size and shape. Basal cisterns are patent. No extra-axial fluid collections. Brain: No intracranial bleeds or mass effects. There is moderate cerebral volume loss for age. There are severe periventricular and deep white matter chronic small vessel ischemic changes. Brainstem appears normal. Diffusion-weighted images show no acute ischemic insults. No chronic ischemic insults. Normal intravascular flow voids are present. Skull and face: Calvarial bone marrow is normal in signal. Orbits are normal. Sinuses: Sinuses and mastoids are clear. IMPRESSION: No acute infarct or other acute intracranial finding. Moderate global cerebral volume loss and severe chronic microvascular ischemic changes. Dictated by: Stiven Aldrich M.D. on 05/14/2021 at 11:04 Approved by: Stiven Aldrich M.D. on 05/14/2021 at 11:05
--- NOTE | 2021-05-14 00:48 | P.HP_ITS ---
History of Present Illness History of Present Illness Date Patient Seen: 05/13/21 Time Patient Seen: 18:55 Chief complaint: Rt Sided Weakness, Sent From [facility] Narrative: Michelle Tripathi is a pleasant 76-year-old female with a history of hypertension, aortic stenosis, mild COPD, mixed hyperlipidemia, depression, HRT, MYLES with CPAP, urinary bladder incontinence, GERD and obesity who presented to the ED with complaint of right-sided weakness that started 3 days ago.? Patient states she noticed during the day that she had increasing issues with balance on her right side particularly her right lower extremity has been weak and wobbly and having quite a bit of pain.? She has had some right hip pain longstanding but she does not have increased pain down the leg.? She has also noted some right upper extremity weakness although not as pronounced.? She has also had chronic dizziness which had became more pronounced 3 days ago she has had some mild nausea but no vomiting.? She denies any facial droop or changes to speech.? Patient denies chest pain, pressure, palpitation, shortness of breath, abdominal pain, nausea, vomiting, numbness, tingling, head injury, headache, changes in vision, recent illness injury or trauma. No new issues with bowel movements or urination.? Patient reported to the ED that she does not have any known cardiac history, htn, arrhythmias, or dyslipidemia. Dr. Barrera is her primary care physician she normally lives independently at home with her .? She normally walks without a walker and does not require any assistance. Upon admit exam patient stated she still felt weak, observed patient moving from the bathroom to the sink to the bed with a walker, no gross neural deficiencies noted, and none found on exam. NIH: 5 in ED, NIH:0 on admit. Patient's vitals were stable temp 98.6?, BP 136/64, HR 64, R 18, O2 saturation 96% on room air. Patient's entire blood panel was all WNL, to include troponin. I personally reviewed patient's EKG which demonstrated sinus rhythm with a rate of [address] or T-wave changes. Patient's head neck CTA demonstrated no intracranial abnormalities, head CT demonstrated no intracranial abnormalities, chest x-ray demonstrated no cardiopulmonary abnormalities. Patient admitted for neurological deficit, right-sided weakness, rule out TIA versus CVA. Patient History Medical History (Updated 05/14/21 @ 01:12 by BRIDGETTE Wisdom-) Abnormal chest x-ray (~2012) Ankle pain Carpal tunnel syndrome (~2008) Chronic back pain (~1994) Colon polyps (~2012) Depression Eczema Fracture Fractures (~2008) GERD (gastroesophageal reflux disease) Headache (~1979) Hearing loss (~2008) Hemorrhoid (~2009) History of urinary incontinence (~2004) Irritable bowel syndrome Left wrist pain Measles Mixed hyperlipidemia Mumps (~1951) Obesity (BMI 30-39.9) Obstructive sleep apnea On postmenopausal hormone replacement therapy Preventative health care Recurrent sinusitis (~1979) Right upper quadrant abdominal pain Rubella (~1958) Shoulder pain (~2008) Urinary bladder incontinence Surgical History History of carpal tunnel repair History of knee replacement History of knee replacement Status post dilation and curettage Family & Social History Family History Brother Age: 77 Heart disease Father Cancer Mother No problems noted. Social History: household members spouse Prior Living Arrangements House lives independently Yes caregiver/support person Yes: Daughters Safety & Behavioral: Feels Safe in Current Yes Environment Been Physically Hurt or No Threatened By a Person Suicidal Ideation Description None Suicide Plan Description No Plan Tobacco & Substance use: Smoking Status Former smoker -quit in 2003 alcohol intake current alcohol intake frequency holiday/special occasion Substance Use Type does not use Meds Home Medications and Allergies Home Medications Medication Instructions Recorded Confirmed Type vit C 150 mg-vit E 30 unit-lutein 1 cap PO DAILY 09/16/17 05/13/21 History 5 [id number] 3 150 mg capsule (Ocuvite) ResMed Airsense 10 CPAP #1 ea 02/09/19 05/13/21 History simvastatin 40 mg tablet 40 mg PO DAILY #90 tab 12/25/20 05/13/21 Rx albuterol sulfate 90 mcg/actuation 1 puff INHALATION Q6H PRN #8.5 g 04/08/21 05/13/21 Rx aerosol inhaler (ProAir HFA) amlodipine 2.5 mg tablet 2.5 mg PO DAILY #30 tab 04/08/21 05/13/21 Rx conjugated estrogens 0.3 mg tablet 0.3 mg PO DAILY 05/13/21 05/13/21 History (Premarin) medroxyprogesterone 2.5 mg tablet 2.5 mg PO DAILY 05/13/21 05/13/21 History oxybutynin chloride 5 mg tablet 5 mg PO BID 05/13/21 05/13/21 History sertraline 50 mg tablet 50 mg PO BEDTIME 05/13/21 05/13/21 History Allergies Allergy/AdvReac Type Severity Reaction Status Date / Time dexamethasone [DEXAMETHASONE] Allergy Mild DIZZINESS Verified 05/13/21 12:47 AND DIARRHEA Sulfa (Sulfonamide Allergy Mild ITCHY Verified 05/13/21 12:47 Antibiotics) [SULFA (SULFONAMIDE ANTIBIOTICS)] Review of Systems Review of Systems Narrative: All 12 point systems reviewed with the patient and are negative except otherwise documented. Exam Vital Signs (past 8 hours): - 05/13/21 19:16 05/13/21 19:45 05/14/21 00:10 Temperature 97.3 F L 97.4 F L Pulse Rate 64 75 84 Respiratory Rate 18 18 18 Blood Pressure 136/64 130/80 141/73 H Pulse Oximetry 96 97 95 Oxygen Delivery Method Room Air Oxygen Flow Rate 0 Narrative Exam Narrative: General: Patient is a well-developed, well-nourished delightful elderly female in no distress at this time. HEENT: Normocephalic, atraumatic, extraocular muscles intact, oral pharynx is clear and mucous membranes are moist. Neck is supple and symmetric, trachea is midline, no adenopathy, no thyroid enlargement, nontender, no masses palpated. Negative for JVD Chest: Normal AP diameter and contour without kyphoscoliosis, no nasal flaring, retractions, or tachypneic labored Lungs: Auscultation of all lung foreman are clear without adventitious sounds, wheezes, rhonchi, or rales. Cardio: S1 & S2 with regular rate and rhythm without murmur, rubs, or gallops, no carotid bruit, no cardiac pulsations present. Abdomen: Soft nontender, negative for organomegaly, or masses. Bowel sounds are present in all 4 quadrants without guarding or rebound, no CVA tenderness. Musculoskeletal: Muscle strength and tone are equal within normal limits, no deformity, crepitus, effusions, cyanosis, clubbing or edema present. Full range of motion intact radial and pedal pulses are normal. Skin: Warm dry and intact without rashes, ulcerations or petechiae. Neuro: Alert and orientated x3, strength is +5/5 in all extremities, sensation to touch intact, no gross deficits noted of cranial nerves. Psych: Patient has a well-kept appearance, appropriate affect, mental status attitude thought context and judgment are appropriate for age. Objective Labs Result Diagrams: 05/13/21 13:50 05/13/21 13:50 Labs: Laboratory Results - last 24 hr 05/13/21 05/13/21 05/13/21 13:50 13:50 13:50 WBC 7.3 RBC 4.76 Hgb 13.6 Hct 40.4 MCV 84.9 MCH 28.5 MCHC 33.5 RDW 13.3 Plt Count 356 Neut % (Auto) 64.5 Lymph % (Auto) 25.0 Butts % (Auto) 7.8 Eos % (Auto) 2.3 Baso % (Auto) 0.4 Neut # (Auto) 4700 Lymph # (Auto) 1800 Butts # (Auto) 600 Eos # (Auto) 200 Baso # (Auto) 0 PT 12.3 INR 1.1 APTT 31 Sodium 139 Potassium 4.7 Chloride 106 Carbon Dioxide 28 BUN 13 Creatinine 0.73 Estimated GFR > 60.0 BUN/Creatinine Ratio 17.8 Glucose 111 H Calcium 9.9 Total Bilirubin 1.0 AST 25 ALT 15 Alkaline Phosphatase 59 Total Creatine Kinase 41 CK-MB (CK-2) TNP CK-MB (CK-2) Rel Index TNP Troponin I < 0.012 Total Protein 7.6 Albumin 4.3 Globulin 3.3 Albumin/Globulin Ratio 1.3 Triglycerides Cholesterol LDL Cholesterol, Calc HDL Cholesterol U Opiates 300ng/mL cut Ur Oxycodone Screen Urine Methadone Screen Ur Barbiturates Screen U Tricyclic Antidepress Ur Phencyclidine Scrn Ur Amphetamines Screen U Methamphetamines Scrn Ur MDMA Scrn (Ecstasy) U Benzodiazepines Scrn Urine Cocaine Screen U Marijuana (THC) Screen SARS-CoV-2 (PCR) 05/13/21 05/13/21 05/13/21 13:50 14:21 18:48 WBC RBC Hgb Hct MCV MCH MCHC RDW Plt Count Neut % (Auto) Lymph % (Auto) Butts % (Auto) Eos % (Auto) Baso % (Auto) Neut # (Auto) Lymph # (Auto) Butts # (Auto) Eos # (Auto) Baso # (Auto) PT INR APTT Sodium Potassium Chloride Carbon Dioxide BUN Creatinine Estimated GFR BUN/Creatinine Ratio Glucose Calcium Total Bilirubin AST ALT Alkaline Phosphatase Total Creatine Kinase CK-MB (CK-2) CK-MB (CK-2) Rel Index Troponin I Total Protein Albumin Globulin Albumin/Globulin Ratio Triglycerides 205 H Cholesterol 196 LDL Cholesterol, Calc 93 HDL Cholesterol 62 H U Opiates 300ng/mL cut Negative Ur Oxycodone Screen Negative Urine Methadone Screen Negative Ur Barbiturates Screen Negative U Tricyclic Antidepress Negative Ur Phencyclidine Scrn Negative Ur Amphetamines Screen Negative U Methamphetamines Scrn Negative Ur MDMA Scrn (Ecstasy) Negative U Benzodiazepines Scrn Negative Urine Cocaine Screen Negative U Marijuana (THC) Screen Negative SARS-CoV-2 (PCR) Negative Assessment & Plan Assessment & Plan narrative: Michelle Tripathi is a pleasant 76-year-old female with a history of hypertension, aortic stenosis, mild COPD, mixed hyperlipidemia, depression, HRT, MYLES with CPAP, urinary bladder incontinence, GERD and obesity who presented to the ED with complaint of right-sided weakness that started 3 days ago, falling out of TPA window. Patient admitted for neurological deficit (right-sided weakness right arm right leg weakness), TIA versus CVA rule out. 1. Neurological deficit (right-sided arm and leg weakness), rule out TIA vs CVAacute, present on admission -NIH:5 in ED-without facial droop, slurred speech, or swallow impairment. -MR ordered for tomorrow -ASA, Lipids ordered -Echo tomorrow -Reviewed Cardio note that had recommended treadmill and carotid ultrasound previously. 2. Essential hypertension with mild aortic stenosis, chronic, present on admission -last echo 07 with an ejection fraction of 60-65% -hypertension well controlled -continue amlodipine 3. Mixed hyperlipidemia, chronic, present on admission -continue Zocor 4. Mild COPD, chronic, with MYLES requiring CPAP, chronic, present on admission -continue albuterol inhaler -respiratory consult- cpap 5. HRT, chronic, present on admission -continue Premarin and Provera 6. Depression, chronic, present on admission -continue Zoloft 7. Urinary bladder incontinence, chronic, present on admission -continue oxybutynin 8. Patient is obese as evidence by BMI of 34.2, acute on chronic, present on admission -dietary consult placed Code status:Full Surrogate decision maker: Spouse Rajendra Tripathi COVID PCR:Negative COVID vaccination: unknown DVT/VTE prophylaxis:Lovenox 40mg & SCD'a Disposition: Patient admitted for evaluation for TIA versus CVA, expected length of stay less than 2 midnights. I have utilized all available immediate resources to obtain, update, or review the patient's current medications. I confirmed that the patient's advanced care plan is present, Code status is documented and/or surrogate decision maker is listed in the patient's medical record. Time Spent With Patient Critical Care time: I spent a total of [] minutes of critical care time on this patient's care today; this time is exclusive of procedural time. Quality VTE Deep Vein Thrombosis/Pulmonary Embolism Present on Admission: No
--- NOTE | 2021-05-14 07:02 | PC.NURSE ---
Admit Note- Patient arrived to room via stretcher from ER at 1945. Patient A&O and able to make needs known to staff. Patient CHEFORNAK. Admit assessment done, medications reviewed, physical assessment done, and skin check completed. Patient oriented to bed and bed controls, room, lights, phone, menu, bathroom, and call win/TV remote. Bed alarm activated. Call win and phone within reach. will continue to monitor.
[2021-05-14] MEDS: ENOXAPARIN 40 MG/0.4 ML SYRINGE SUBCUT (09:23)
[2021-05-14] MEDS: ATORVASTATIN 20 MG TABLET PO (09:23)
[2021-05-14] MEDS: OXYBUTYNIN 5 MG TABLET PO (09:23)
[2021-05-14] MEDS: AMLODIPINE 5 MG TABLET 2.5 MG PO (09:23)
[2021-05-14] MEDS: SODIUM CHLORIDE 0.9% FLUSH 10 ML IV (09:25)
[2021-05-14] MEDS: ESTROGENS, CONJUGATED 0.3 MG TABLET PO (09:40)
[2021-05-14] MEDS: MEDROXYPROGESTERONE ACETATE 2.5 MG TABLET PO (09:40)
--- NOTE | 2021-05-14 10:34 | CM.DANOTE ---
DCP: Case received, EMR reviewed and met with patient. Introduced self and role. Was able to obtain information regarding patient's baseline activity level prior to hospitalization. DCP assessment completed with information currently available. Patient is a 76 year old female who admitted yesterday afternoon to the care of the hospitalist team. PCP: Dr. Barrera. Payer: confirmed: Medicare/[facility]. Patient came to the hospital via private vehicle secondary to having right sided weakness. She was sent over from the walk in clinic. According to notes, patient had been complaining of these symptoms approximately 3 days ago. She had also noted some balance issues. Patient has history of HTN, Aortic Stenosis, mild COPD. Patient is here for tests to rule out CVA. She is scheduled for an MRI today. Met with patient. She is alert and oriented, but hard of hearing. She resides here in [place] with her spouse, Rajendra. She does not drive, her takes her shopping, and to appointments. She does use a FWW at home. P: DCP to continue to follow for any needs. Patient will be having MRI today. She will also be working with the therapy team. Patient should be able to go home when medically stable. Ursula Penn RN/[employer] Worker Discharge Planning/Care Management CM Discharge Assessment Start: 05/14/21 10:33 Freq: Status: Active Protocol: Document 05/14/21 10:33 (Rec: 05/14/21 10:34 [id number]) Discharge Planning Assessment Assigned Dehairer Ursula Penn RN/[employer] Worker Advance Directives? No History Provided By Patient,Medical Record Prior Living Arrangements House Household Members spouse Type of transporation used prior to Relies on Others admit DME Already Rented / Owned FWW / Walker Barriers to Discharge No Discharge Plan Home Transportation Arrangement Spouse Referrals Initiated None needed Whiteboard Updated in Patient Room with Yes name and ext. # of Dehairer Review Status In Process Next Review Type Continued Stay Review
--- NOTE | 2021-05-14 11:47 | OT.IP.EVAL ---
Past Medical History (Last Updated 05/14/21 @ 01:12 [facility] Abnormal chest x-ray (~2012) Ankle pain Carpal tunnel syndrome (~2008) Chronic back pain (~1994) Colon polyps (~2012) Depression Eczema Fracture Fractures (~2008) GERD (gastroesophageal reflux disease) Headache (~1979) Hearing loss (~2008) Hemorrhoid (~2009) History of urinary incontinence (~2004) Irritable bowel syndrome Left wrist pain Measles Mixed hyperlipidemia Mumps (~1951) Obesity (BMI 30-39.9) Obstructive sleep apnea On postmenopausal hormone replacement therapy Preventative health care Recurrent sinusitis (~1979) Right upper quadrant abdominal pain Rubella (~1958) Shoulder pain (~2008) Urinary bladder incontinence Surgical History (Last Reviewed 05/14/21 @ 01:12 [facility] History of carpal tunnel repair History of knee replacement History of knee replacement Status post dilation and curettage Occupational Therapy Inpatient Evaluation/Re-Eval M1 PT/OT-IP Prior Functional Status Start: 05/14/21 12:57 Freq: NEEDED Status: Active Protocol: Document 05/14/21 12:57 [facility] (Rec: 05/14/21 13:26 [facility] [id number]) Medical Review Prior Functional Status Communication independent Mobility and Gait Pt states did not use a device but on the day of admission was having to furniture cruise at home. Activities of Daily Living and IADL's Pt states was independent with all ADl, shared IADl needs, did the bills, medications and drives Prior Functional Level (Other details) Pt's daughter in town to assist. Social History Household Members spouse Living Arrangements House Number of Stairs To Enter/Railing? 7 steps from the garage with bilateral rails and pt mainly uses the right rail, platform landing, and then another 7 steps with bilateral rails in which she use the right rail to the main level. Home Environment Standard Height Toilet,Walk in Shower Home Equipment Manual Wheelchair,Shower Seat with Backrest,Hand Held Shower Additional Social History Comment Pt states her family has already picked up a FWW. M2 OT-IP Current Condition Start: 05/14/21 12:57 Freq: Status: Active Protocol: Document 05/14/21 12:57 [facility] (Rec: 05/14/21 13:26 [facility] [id number]) Occupational Therapy Current Condition Current Condition Evaluation Date 05/14/21 Treatment Diagnosis Right sided weakness,TIA Diagnosis Onset Date 05/13/21 M3 OT- IP Subjective and Pain Start: 05/14/21 12:57 Freq: Status: Active Protocol: Document 05/14/21 12:57 [facility] (Rec: 05/14/21 13:26 [facility] [id number]) OT- Subjective Occupational Therapy Visit Type Type Initial Evaluation Visit Start Time 11:00 Visit Stop Time 11:47 Total Visit Minutes 47 Occupational Therapy Visit Comments Patient Comments Pt agreed to get up for OT eval. Patient/Caregiver Goals TO go home. M4 OT- IP ADL's Start: 05/14/21 12:57 Freq: Status: Active Protocol: Document 05/14/21 12:57 [facility] (Rec: 05/14/21 13:26 [facility] [id number]) OT [id number] Comments OT Self-Feeding Comments Not at meal time. OT ADL-Grooming Comments OT Grooming Comments NOt performed. OT ADL-Oral Care Comments Oral Care Comments NOt performed. OT ADL-Dressing General Eval Lower Body Dressing Ability Standby Assistance,Minimal Assistance Comments OT Dressing Comments Pt needing increased time to vikki right sock and having decreased dynamic balance while leaning forwards. Pt would benefit from CGA/SBA when standing for LB dressing needs. OT ADL-Toileting Comments OT Toileting Comments Pt not having to go at this time. OT ADL-Bathing Comments OT Bathing Comments NOt performed. Pt states has a shower chair at home that prior she used to prop her leg up on , but now feels that she will use it to sit and shower.Pt states the shower chair is loose and to have her family tighten it. M5 OT- IP IADL's Start: 05/14/21 12:57 Freq: Status: Active Protocol: Document 05/14/21 12:57 [facility] (Rec: 05/14/21 13:26 [facility] [id number]) OT-Instrumental Activities of Daily Living Home Safety Awareness Awareness of Need for Assistance at Home Good Awareness Ability to Problem Solve Emergency Able to Problem Solve Situations Home Safety Comments Pt able to answer all home safety situations with good accuracy. Medication Management Medication Management Comments At this time would be beneficial for someone to supervise pt as pt having some difficulty with her STM. Driving Driving Concerns Identified Regarding Safety M6 OT- IP Functional Cognition Start: 05/14/21 12:57 Freq: Status: Active Protocol: Document 05/14/21 12:57 [facility] (Rec: 05/14/21 13:26 [facility] [id number]) Cognitive Factors Limiting Selfcare Function Cognitive Ability Level of Alertness Alert Patient Orientation Name,Age,Birthday,Month,Date, Year,Day of Week,Place, Situation Attention Span Ability Capable of Focused Attention, Capable of Sustained Attention Ability to Follow Commands Able to Follow One Step Commands Memory Description Short Term Impaired Executive Function Ability Unable to Remember Details Cognitive Tests SLUMS Pt scored 26/30 which implies mild neurocognitive disorder. Pt able to recall 3/5 objects after time passed and able to answer 3/4 questions right after a paragraph read. Cognitive Comments Cognitive Assessment Comments Pt scored 175 seconds on [place] Making Part B and needing mod vc to complete implies significant impairments for visual attention, speed of processing, task switching, executive functioning, and mental flexibility. Pt is agreeds that she will not be driving anytime soon. OT- Vision and Hearing OT- Vision Assessment Visual Acuity Glasses All The Time Visual Attentiveness WFL Occular Pursuits WFL Visual Convergence WFL Visual Hernandez WFL M7 OT- IP Mobility and Balance Start: 05/14/21 12:57 Freq: Status: Active Protocol: Document 05/14/21 12:57 [facility] (Rec: 05/14/21 13:26 [facility] [id number]) OT- Bed Mobility Assessment Rolling Level of Assistance Standby Assistance Supine to Sit Supine to Sit Assist Standby Assistance Sit to Supine Sit to Supine Assist Standby Assistance OT-Transfer Assessment Sit to and From Stand Sit to and from Stand Contact Guard Assistance Transfers Transfer Ability Standby Assistance Technique Transfer Destination Bed Transfer Technique Stand Step Pivot Devices Transfer Assistive Devices Gait Belt,Front Wheeled Walker Comments Mobility Comments Pt needing to use her right hand to help move her right leg into and out of the bed. Pt able to use FWW and needing vc to stay close to the FWW. OT- Balance Assessment Sitting Balance and Reactions Static Sitting Balance Ability Good Dynamic Sitting Balance Ability Fair Standing Balance and Reactions Static Standing Balance Ability Fair Dynamic Standing Balance Ability Poor M8 OT- IP Objective Assessments Start: 05/14/21 12:57 Freq: Status: Active Protocol: Document 05/14/21 12:57 [facility] (Rec: 05/14/21 13:26 [facility] [id number]) OT Gross Range of Motion Upper Extremity Range of Motion Assessment Right Impaired ROM Impairments decreased at end ROM OT Strength Upper Extremity Strength Assessment Right Impaired Shoulder 3- Elbow 4- Forearm 4- Wrist 4- Hand 4- OT- Coordination Assessment Upper Extremity Finger to Nose Test Right UE Impaired Comments Coordination Comments Pt 9 hole peg 40 seconds RUE. Pt 9 hole peg 28 seconds LUE. OT-Muscle Tone Assessment Muscle Tone WNL Yes OT Sensation Assessment Comments Summary Comments Pt able to correctly identify for light touch on right UE but states the sensation feels off. M9 OT- IP Assessment and Plan Start: 05/14/21 12:57 Freq: Status: Active Protocol: Document 05/14/21 12:57 [facility] (Rec: 05/14/21 13:26 [facility] [id number]) OT Summary Assessment and Plan Potential Rehabilitation Potential Good Analytic Complexity at Evaluation Moderate Summary OT Impairments Range of Motion,Strength, Coordination,Sensation, Functional Cognition, Functional Mobility,Grooming, Dressing,Toileting,Bathing, Toilet Transfers,Shower Transfers,Activity Tolerance Progress Towards Goals Progressing Toward Goals Assessment Summary Pt here due to right side weakness and possible TIA/CVA. Pt having difficulty with RUE FMS, strength, and mental flexibility. Pt would benefit from outpt therapy and assist at home. Pt states her family has already gotten a FWW for her to use. Goals Grooming Goal Independent Dressing Goal Independent Toileting Goal Independent Bathing Goal Independent Toilet Transfer Goal Independent Shower Transfer Goal Independent Days to Meet Goals 10 Frequency of Treatment Frequency Of Treatment Once a Day Treatment Plan OT Treatment Plan ADL Training,Functional Cognition Training,Functional Mobility,Patient/Family Education,Discharge Planning Other Treatment Recommendations and Next shower if still here Treatment Focus Discharge Recommendations OT Discharge Recommendations Home with 27/10 Assist Available,Outpatient PT Transportation Needs at Discharge Private Vehicle
[2021-05-14] MEDS: DICLOFENAC 1% GEL 100 GM 1 APPLIC TOP (13:28)
--- NOTE | 2021-05-14 13:59 | PC.NURSE ---
Pt A&Ox3, slightly forgetful. VSS, afebrile on RA. NSR on telemetry. She c/o weakness on R side some discoordination. MRI completed. She is cleared for discharge home this afternoon. at bedside, supportive. She verbalizes understanding of discharge instructions and medications and reports she will be going for out patient physical therapy. She is escorted by w/ch to private vehicle with her with all of her belongings at approximately 1:30p.m
--- NOTE | 2021-05-14 15:47 | P.DS_ITS ---
History of Present Illness History of Present Illness Chief complaint: Rt Sided Weakness, Sent From [facility] Narrative: 6-year-old female? with a history of hypertension, aortic stenosis, mild COPD, mixed hyperlipidemia, depression, HRT, MYLES with CPAP, urinary bladder incontinence, GERD and obesity who presented to the ED with complaint of right- sided weakness that started 3 days ago.? Patient states she noticed during the day that she had increasing issues with balance on her right side particularly her right lower extremity has been weak and wobbly and having quite a bit of pain.? She has had some right hip pain longstanding but she does not have increased pain down the leg.? She has also noted some right upper extremity weakness although not as pronounced.? She has also had chronic dizziness which had became more pronounced 3 days ago she has had some mild nausea but no vomiting.? She denies any facial droop or changes to speech.? Patient denies chest pain, pressure, palpitation, shortness of breath, abdominal pain, nausea, vomiting, numbness, tingling, head injury, headache, changes in vision, recent illness injury or trauma.? No new issues with bowel movements or urination.? Patient reported to the ED that she does not have any known cardiac history, htn, arrhythmias, or dyslipidemia. Dr. Barrera is her primary care physician she normally lives independently at home with her .? She normally walks without a walker and does not require any assistance. Upon admit exam patient stated she still felt weak, observed patient moving from the bathroom to the sink to the bed with a walker, no gross neural deficiencies noted, and none found on exam. NIH: 5 in ED, NIH:0 on admit.? Patient's vitals were stable temp 98.6?, BP 136/64, HR 64, R 18, O2 saturation 96% on room air.? Patient's entire blood panel was all WNL, to include troponin.? I personally reviewed patient's EKG which demonstrated sinus rhythm with a rate of [address] or T-wave changes.? Patient's head neck CTA demonstrated no intracranial abnormalities, head CT demonstrated no intracranial abnormalities, chest x-ray demonstrated no cardiopulmonary abnormalities.? Patient admitted for neurological deficit, right-sided weakness, rule out TIA versus CVA. Discharge Providers Provider Date of admission: 05/13/21 18:06 Discharge Date: 05/14/21 Primary care physician: Kunal Barrera DO Consults: 05/13/21 18:57 Consult to Occupational Therapy Evaluate & Treat Comment: Physician Instructions: Evaluate and treat Consult to Physical Therapy Evaluate & Treat Comment: Physician Instructions: Evaluate and Treat 05/14/21 01:29 Consult to Dietitian, Adult Routine Comment: Reason For Exam: BMI 34.2 Discharge provider: Malik Lopes MD Summary Hospital Course Discharge Diagnosis: 1. Right-sided weakness 2. Possible ischemic CVA 3. Severe chronic microvascular disease on brain MR 4. Cognitive impairment 5. Hypertension 6. Hyperlipidemia Brain MR:o intracranial bleeds or mass effects.? There is moderate cerebral volume loss for age.? There are severe periventricular and deep white matter chronic small vessel ischemic changes.? Brainstem appears normal.? Diffusion-weighted images show no acute ischemic insults.? No chronic ischemic insults.? Normal intravascular flow voids are present.? CTA:Carotid system:? The great vessels demonstrate a conventional anatomy as they arise from the aortic arch.? The origins of the common carotid arteries appear patent.? The common carotid arteries demonstrate normal caliber and courses.? The left carotid bifurcation region demonstrates focal atherosclerotic calcification, with approximately 40% luminal narrowing.? No significant abnormality of right carotid bifurcation region can be seen. The more distal internal carotid arteries demonstrate normal course and caliber.? ? Posterior circulation:? The origins of the vertebral arteries both appear widely patent.? The more superior extracranial portions of both vertebral arteries also demons trate normal courses and calibers.? They join to form a normal appearing basilar artery.? OT evaluation: Cognitive Factors Limiting Selfcare Function ?? ? Cognitive Ability ? ? ? Level of Alertness ? Alert ? ? ? Patient Orientation? Name,Age,Birthday,Month,Date, ? Year,Day of Week,Place, ? Situation ? ? ? Attention Span Ability ? Capable of Focused Attention, ? Capable of Sustained Attention ? ? ? Ability to Follow Commands ? Able to Follow One Step ? Commands ? ? ? Memory Description ? Short Term Impaired ? ? ? Executive Function Ability ? Unable to Remember Details ?? ? Cognitive Tests ? ? ? SLUMS? Pt scored 26/30 which implies ? mild neurocognitive disorder. ? Pt able to recall 3/5 objects ? after time passed and able to ? answer 3/4 questions right ? after a paragraph read. ?? ? Cognitive Comments ? ? ? Cognitive Assessment Comments? Pt scored 175 seconds on [place] ? Making Part B and needing mod ? vc to complete implies ? significant impairments for ? visual attention, speed of ? processing, task switching, ? executive functioning, and ? mental flexibility.? Pt is ? agreeds that she will not be ? driving anytime soon. Hospital Course: Patient admitted for possible CVA presenting with subjective complaints of new right-sided weakness. Also had some dizziness which appears more chronic. Brain MRI showed severe chronic microvascular disease but no acute stroke. There was no significant stenosis on CTA. Telemetry was normal. She previously had echo on 01/17/2021 which showed mild but otherwise okay. It is possible she had a small stroke which is not showing on MRI. Therapy did note she is s lightly weak on right side and has some difficulty with balance. However she is also having some joint pains on the right side which may be confounding exam. My exam I could not ascertain any unilateral weakness. She does seem to have degree of cognitive impairment which should be monitored, see OT evaluation. We did add low-dose aspirin to patient's medication management to reduce risk of stroke. On simvastatin her LDL is 93 and PCP could consider switching her over to atorvastatin for higher intensity therapy. Status at Discharge Cognitive/behavioral status at discharge: oriented Functional status at discharge: independent ambulation Overall status at discharge: patient is progressing back to baseline Exam Vital Signs (past 8 hours): - 05/14/21 08:57 05/14/21 09:32 05/14/21 10:00 Temperature 97.8 F Pulse Rate 83 Respiratory Rate 14 Blood Pressure 142/82 H Pulse Oximetry 95 94 94 Oxygen Delivery Method Room Air Oxygen Flow Rate 0 Narrative Exam Narrative: General: Alert NAD Neurological: No pronator drift, normal [id number], normal leg raise, normal heel to fontaine Objective Labs Result Diagrams: 05/13/21 13:50 05/13/21 13:50 Labs: Laboratory Results - last 24 hr 05/13/21 05/13/21 13:50 18:48 Triglycerides 205 H Cholesterol 196 LDL Cholesterol, Calc 93 HDL Cholesterol 62 H U Opiates 300ng/mL cut Negative Ur Oxycodone Screen Negative Urine Methadone Screen Negative Ur Barbiturates Screen Negative U Tricyclic Antidepress Negative Ur Phencyclidine Scrn Negative Ur Amphetamines Screen Negative U Methamphetamines Scrn Negative Ur MDMA Scrn (Ecstasy) Negative U Benzodiazepines Scrn Negative Urine Cocaine Screen Negative U Marijuana (THC) Screen Negative [facility] Medical History (Updated 05/14/21 @ 01:12 by [facility] Abnormal chest x-ray (~2012) Ankle pain Carpal tunnel syndrome (~2008) Chronic back pain (~1994) Colon polyps (~2012) Depression Eczema Fracture Fractures (~2008) GERD (gastroesophageal reflux disease) Headache (~1979) Hearing loss (~2008) Hemorrhoid (~2009) History of urinary incontinence (~2004) Irritable bowel syndrome Left wrist pain Measles Mixed hyperlipidemia Mumps (~1951) Obesity (BMI 30-39.9) Obstructive sleep apnea On postmenopausal hormone replacement therapy Preventative health care Recurrent sinusitis (~1979) Right upper quadrant abdominal pain Rubella (~1958) Shoulder pain (~2008) Urinary bladder incontinence Surgical History History of carpal tunnel repair History of knee replacement History of knee replacement Status post dilation and curettage Family History Brother Age: 77 Heart disease Father Cancer Mother No problems noted. 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 Start daily low dose aspirin. have Dr Barrera do memory testing at your hospital follow up visit. Nursing Discharge Comment: august discharge after evaluated by PT Discharge orders & Medications Prescriptions: New aspirin 81 mg tablet,delayed release (DR/EC) 81 mg PO DAILY Qty: 1 0RF Continued simvastatin 40 mg tablet 40 mg PO DAILY Qty: 90 3RF amlodipine 2.5 mg tablet 2.5 mg PO DAILY Qty: 30 2RF albuterol sulfate [ProAir HFA] 90 mcg/actuation HFA aerosol inhaler 1 puff inhalation Q6H PRN (Reason: shortness of breath or wheezing) Qty: 8.5 1RF vit C-vit Q-aefusc-yvm-om-3 [Ocuvite] [id number] gd-mwlw-if-mg capsule 1 cap PO DAILY 0RF Premarin 0.3 mg Tablet 0.3 mg PO DAILY 0RF oxybutynin chloride 5 mg tablet 5 mg PO BID 0RF Rx Instructions: 2 tabs QAM and 1 tab QPM PO twice a day; sertraline 50 mg tablet 50 mg PO BEDTIME 0RF medroxyprogesterone 2.5 mg Tablet 2.5 mg PO DAILY 0RF (DME) ResMed Airsense 10 CPAP Qty: 1 0RF Rx Instructions: Pressure: 5-10 cmH2O DME: [employer] Follow up/Referrals: Kunal Barrera DO [Primary Care Provider] - Discharge Data Primary Care Provider: Kunal Barrera Attending Provider: Malik Lopes VTE Deep Vein Thrombosis/Pulmonary Embolism Present on Admission: No
== END 2021-05-14 13:30 | disposition home or self-care (01) ==
LOC: ED 16:11 → AC 18:07
PROVIDERS: Admitting Provider Internal Medicine; Emergency Provider Emergency Medicine; PCP Family Medicine; Referring Provider Emergency Medicine; Visit Provider Internal Medicine
DX: R53.1 Weakness (principal); R29.705 NIHSS score 5; G47.33 Obstructive sleep apnea (adult) (pediatric); G81.91 Hemiplegia, unspecified affecting right dominant side; G31.84 Mild cognitive impairment of uncertain or unknown etiology; F32.9 Major depressive disorder, single episode, unspecified; I10 Essential (primary) hypertension; J44.9 Chronic obstructive pulmonary disease, unspecified; R32 Unspecified urinary incontinence; E78.2 Mixed hyperlipidemia; E66.9 Obesity, unspecified; Z68.34 Body mass index [BMI] 34.0-34.9, adult; Z20.822 Contact with and (suspected) exposure to COVID-19
CPT/HCPCS: 36415; 70450; 70496; 70498; 70551; 71045; 80053; 80061; 80305; 81003; 82550; 84484; 85025; 85610; 85730; 87635; 93005; 93010; 94760; 96372; 97166; 99285; C9803; G0378; J1650

== ENCOUNTER 2021-08-02 14:30 | Outpatient (RCR) | payer MEDICARE, OTHER, SELFPAY ==
[2021-05-15 14:36] VITALS: BMI 34.7
[2021-06-04 14:54] VITALS: BP 128/79; BP 137/84
--- NOTE | 2021-06-04 16:00 | PT.OIE ---
Current Diagnoses Transient cerebral ischemic attack, unspecified (06/04/21) Other specified disorders of Eustachian tube, unspecified ear (06/04/21) Other abnormalities of gait and mobility (06/04/21) Dizziness and giddiness (06/04/21) Past Medical History (Last Updated 05/15/21 @ 18:41 by Kunal Barrera DO) Abnormal chest x-ray (~2012) Ankle pain Carpal tunnel syndrome (~2008) Chronic back pain (~1994) Colon polyps (~2012) Depression Eczema Fracture Fractures (~2008) GERD (gastroesophageal reflux disease) Headache (~1979) Hearing loss (~2008) Hemorrhoid (~2009) History of urinary incontinence (~2004) Hypertension Irritable bowel syndrome Left wrist pain Measles Mixed hyperlipidemia Mumps (~1951) Obesity (BMI 30-39.9) Obstructive sleep apnea On postmenopausal hormone replacement therapy Preventative health care Recurrent sinusitis (~1979) Right upper quadrant abdominal pain Rubella (~1958) Shoulder pain (~2008) Transient ischemic attack Urinary bladder incontinence Past Surgical History (Last Reviewed 05/15/21 @ 18:38 by Kunal Barrera DO) History of carpal tunnel repair History of knee replacement History of knee replacement Status post dilation and curettage Visit Care Team Role Provider Type Kunal Barrera DO Attending Provider Physician Family Provider Primary Care Provider Referring Provider Specialty: [facility] Address: [address] [place] [address] Email: [email or web address] Physical Therapy Initial Evaluation PT-OP-A Visit Information Start: 06/03/21 11:39 Freq: Status: Active Protocol: Document 06/04/21 14:30 AMB (Rec: 06/10/21 15:58 AMB [id number]) Out-Patient Physical Therapy Visit Information Visit Information Visit Type Treatment Note Visit Start Time 14:30 Visit Stop Time 15:15 Total Visit Minutes 45 Visit Number 1 PT-OP-B Current Condition Start: 06/03/21 11:39 Freq: Status: Active Protocol: Document 06/04/21 14:32 AMB (Rec: 06/04/21 14:44 AMB [id number]) Current Condition History of Current Condition Onset Date 05/12/21 Current Complaints Dizziness/right sided weakness History of Current Condition Michelle was hospitalized for TIA one month ago and since coming home she reports the dizziness bad in the morning, better throughout the day. Started May 12. R sided weakness. When standing up feels faint, but could come on briefly even with sitting still. Hasn't been drinking much fluid the last two days. Does have some chronic bilateral hip pain and low back pain. Walking seems to make the pain worse. Not driving because of the weakness and dizziness. Attends PT with [facility]. Does furniture walk at night and feels woozy then when she gets up to go to the bathroom. She reports the dizziness is the worse with turning around or oving fast and does take a couple seconds to a minute to resolve. Treatment Goals Patient/Caregiver Goals Not be dizzy/lightheaded/ offbalance Prior Functional Status Baseline Function- ADL's Independent Baseline Function- Mobility Independent Personal Factors Other Personal Factors That May Effect HTN, depression, COPD Therapy/Recovery PT-OP-D Balance Start: 06/03/21 11:39 Freq: Status: Active Protocol: Document 06/04/21 14:30 AMB (Rec: 06/10/21 15:58 AMB [id number]) Balance Tests mCTSIB mCTSIB Position 1 30 mCTSIB Position 2 fall PT-OP-E Functional Tests Start: 06/03/21 11:39 Freq: Status: Active Protocol: Document 06/04/21 14:30 AMB (Rec: 06/10/21 15:58 AMB [id number]) Functional Tests Dynamic Gait Index (DGI) Score 14 DGI Impairment Rating 40 to <60% Impaired (Score 10- 14) Five Times Sit to Stand Test Score 20 PT-OP-H Neuro Start: 06/03/21 11:39 Freq: Status: Active Protocol: Document 06/04/21 14:54 AMB (Rec: 06/04/21 15:04 AMB [id number]) Vital Signs Blood Pressure Standing Blood Pressure (90/60-120/80 mmHg) 128/79 H Blood Pressure Source Automatic Cuff Supine Blood Pressure (90/60-120/80 mmHg) 137/84 H Blood Pressure Source Automatic Cuff,Left Upper Extremity PT-OP-M Strength Start: 06/10/21 15:58 Freq: Status: Active Protocol: Document 06/04/21 14:30 AMB (Rec: 06/10/21 16:01 AMB [id number]) Hip Strength Hip Manual Muscle Testing Right Flexion (L2) 4- Good- Extension (S1) 3+ Fair+ Abduction 4- Good- Left Flexion (L2) 4 Good Extension (S1) 4- Good- Abduction 4 Good PT-OP-O Vestibular Start: 06/03/21 11:39 Freq: Status: Active Protocol: Document 06/04/21 14:30 AMB (Rec: 06/10/21 15:58 AMB [id number]) Vestibular Assessment Positional Testing [place] Negative Left,Negative Right Rolling Test Negative Left,Negative Right PT-OP-Q Treatments Start: 06/03/21 11:39 Freq: Status: Active Protocol: Document 06/04/21 14:30 AMB (Rec: 06/10/21 15:58 AMB [id number]) Therapeutic Exercises Standing Exercises sit to stand Reps/Minutes 10 Comments HEP-uses UEs PT-OP-T Assessment and Plan Start: 06/03/21 11:39 Freq: Status: Active Protocol: Document 06/04/21 14:30 AMB (Rec: 06/11/21 09:07 AMB [id number]) Physical Therapy Assessment Rehab Potential Rehabilitation Potential Good Evaluation Complexity Number of Personal Factors/Comorbidities 1-2 Number of Body Systems Impaired 4 or More Clinical Presentation at Evaluation Evolving Impairments Impairments Balance,Functional Activities, Gait,Pain,Posture,Strength, Transfers Goals Two Impairment Gait Short Term Goal (STG) Michelle will ascend and descend a flight of stairs with an alternating gait pattern. STG Duration 4 weeks Senior Living Goal (LTG) Michelle will ambulate for 6 minutes over smooth terrain without LOB or AD. LTG Duration 8 weeks One Impairment Balance Short Term Goal (STG) Michelle will improve her DGI to 18/24 or greater. STG Duration 4 weeks Senior Living Goal (LTG) Michelle will improve her 5x sit to stand test score to 15 seconds without any dizziness. LTG Duration 8 weeks Assessment Summary Assessment Michelle attends physical therapy with continued R sided weakness and dizziness s/p TIA one month ago. She does have a history of back and hip pain that impact her mobility , but her walking and especially moving from sit to stand and climbing stairs has been impacted by her current weakness and dizziness. She does score within the fall risk category on the dynamic gait index and had difficulty with walking with head turns. She did not show any signs of BPPV or orthostatic hypotension during her evaluation. She will benefit from physical therapy to improve her balance and gait and reduce her risk of falling . Physical Therapy Plan Frequency and Duration Frequency of Treatment 2x/Week Duration of Treatment 8 weeks Plan of Care Start Date 06/04/21 Plan of Care End Date 07/30/21 Therapeutic Interventions Therapeutic Interventions Balance Training,Gait Training ,Home Exercise Program,Manual Therapy,Neuromuscular Re- education,Self-Care/Home Management,Therapeutic Activities,Therapeutic Exercises Modalities Cold Pack/Ice Massage,Electric Stimulation,Hot Packs Next Visit Focus/Plan Next Visit Plan review sit to stand start balance training
--- NOTE | 2021-06-04 16:00 | PT.OPPOC ---
Physical, Occupational & Speech Therapy At [facility] Current Diagnoses Transient cerebral ischemic attack, unspecified (06/04/21) Other specified disorders of Eustachian tube, unspecified ear (06/04/21) Other abnormalities of gait and mobility (06/04/21) Dizziness and giddiness (06/04/21) Visit Care Team Role Provider Type Kunal Barrera DO Attending Provider Physician Family Provider Primary Care Provider Referring Provider Specialty: Family Practice Address: [address] [place] [address] Email: [email or web address] Plan Of Care PT-OP-T Assessment and Plan Start: 06/03/21 11:39 Freq: Status: Active Protocol: Document 06/04/21 14:30 AMB (Rec: 06/11/21 09:07 AMB [id number]) Physical Therapy Assessment Rehab Potential Rehabilitation Potential Good Evaluation Complexity Number of Personal Factors/Comorbidities 1-2 Number of Body Systems Impaired 4 or More Clinical Presentation at Evaluation Evolving Impairments Impairments Balance,Functional Activities, Gait,Pain,Posture,Strength, Transfers Goals Two Impairment Gait Short Term Goal (STG) Michelle will ascend and descend a flight of stairs with an alternating gait pattern. STG Duration 4 weeks [facility] Goal (LTG) Michelle will ambulate for 6 minutes over smooth terrain without LOB or AD. LTG Duration 8 weeks One Impairment Balance Short Term Goal (STG) Michelle will improve her DGI to 18/24 or greater. STG Duration 4 weeks [facility] Goal (LTG) Michelle will improve her 5x sit to stand test score to 15 seconds without any dizziness. LTG Duration 8 weeks Assessment Summary Assessment Michelle attends physical therapy with continued R sided weakness and dizziness s/p TIA one month ago. She does have a history of back and hip pain that impact her mobility , but her walking and especially moving from sit to stand and climbing stairs has been impacted by her current weakness and dizziness. She does score within the fall riks category on the dynamic gait index and had difficulty with walking with head turns. She did not show any signs of BPPV or orthostatic hypotension during her evaluation. She will benefit from physical therapy to improve her balance and gait and reduce her risk of falling . Physical Therapy Plan Frequency and Duration Frequency of Treatment 2x/Week Duration of Treatment 8 weeks Plan of Care Start Date 06/04/21 Plan of Care End Date 07/30/21 Therapeutic Interventions Therapeutic Interventions Balance Training,Gait Training ,Home Exercise Program,Manual Therapy,Neuromuscular Re- education,Self-Care/Home Management,Therapeutic Activities,Therapeutic Exercises Modalities Cold Pack/Ice Massage,Electric Stimulation,Hot Packs Next Visit Focus/Plan Next Visit Plan review sit to stand start balance training Plan of Care Dates Plan of Care Start Date 06/04/21 Plan of Care End Date 07/30/21 Electronically Signed by: My Bonds, PT 06/11/21 0928 Please Sign and Return: I have reviewed this Plan of Care and certify that the skilled therapy services above are required to meet the patient?s needs. Physician Signature Date Printed Name and Credentials Clinical Instructor Signature Printed Name and Credentials
--- NOTE | 2021-06-14 10:18 | PT.OTN ---
Current Diagnoses Transient cerebral ischemic attack, unspecified (06/12/21) Other specified disorders of Eustachian tube, unspecified ear (06/12/21) Other abnormalities of gait and mobility (06/12/21) Dizziness and giddiness (06/12/21) Physical Therapy Treatment Note PT-OP-A Visit Information Start: 06/03/21 11:39 Freq: Status: Active Protocol: Document 06/12/21 10:32 AMB (Rec: 06/12/21 11:16 AMB [id number]) Out-Patient Physical Therapy Visit Information Visit Information Visit Type Treatment Note Visit Start Time 10:30 Visit Stop Time 11:15 Total Visit Minutes 45 Visit Number 2 PT-OP-B Current Condition Start: 06/03/21 11:39 Freq: Status: Active Protocol: Document 06/04/21 14:32 AMB (Rec: 06/04/21 14:44 AMB [id number]) Current Condition History of Current Condition Onset Date 05/12/21 Current Complaints Dizziness/right sided weakness History of Current Condition Michelle was hospitalized for TIA one month ago and since coming home she reports the dizziness bad in the morning, better throughout the day. Started May 12. R sided weakness. When standing up feels faint, but could come on briefly even with sitting still. Hasn't been drinking much fluid the last two days. Does have some chronic bilateral hip pain and low back pain. Walking seems to make the pain worse. Not driving because of the weakness and dizziness. Attends PT with [facility]. Does furniture walk at night and feels woozy then when she gets up to go to the bathroom. She reports the dizziness is the worse with turning around or oving fast and does take a couple seconds to a minute to resolve. Treatment Goals Patient/Caregiver Goals Not be dizzy/lightheaded/ offbalance Prior Functional Status Baseline Function- ADL's Independent Baseline Function- Mobility Independent Personal Factors Other Personal Factors That May Effect HTN, depression, COPD Therapy/Recovery PT-OP-C Subjective Start: 06/03/21 11:39 Freq: Status: Active Protocol: Document 06/12/21 10:32 AMB (Rec: 06/12/21 11:16 AMB [id number]) OP-PT Subjective Patient Comments Patient Comments BJ reports she has been doing well with the sit to stand exercises PT-OP-D Balance Start: 06/03/21 11:39 Freq: Status: Active Protocol: Document 06/04/21 14:30 AMB (Rec: 06/10/21 15:58 AMB [id number]) Balance Tests mCTSIB mCTSIB Position 1 30 mCTSIB Position 2 fall PT-OP-E Functional Tests Start: 06/03/21 11:39 Freq: Status: Active Protocol: Document 06/04/21 14:30 AMB (Rec: 06/10/21 15:58 AMB [id number]) Functional Tests Dynamic Gait Index (DGI) Score 14 DGI Impairment Rating 40 to <60% Impaired (Score 10- 14) Five Times Sit to Stand Test Score 20 PT-OP-H Neuro Start: 06/03/21 11:39 Freq: Status: Active Protocol: Document 06/04/21 14:54 AMB (Rec: 06/04/21 15:04 AMB [id number]) Vital Signs Blood Pressure Standing Blood Pressure (90/60-120/80 mmHg) 128/79 H Blood Pressure Source Automatic Cuff Supine Blood Pressure (90/60-120/80 mmHg) 137/84 H Blood Pressure Source Automatic Cuff,Left Upper Extremity PT-OP-M Strength Start: 06/10/21 15:58 Freq: Status: Active Protocol: Document 06/04/21 14:30 AMB (Rec: 06/10/21 16:01 AMB [id number]) Hip Strength Hip Manual Muscle Testing Right Flexion (L2) 4- Good- Extension (S1) 3+ Fair+ Abduction 4- Good- Left Flexion (L2) 4 Good Extension (S1) 4- Good- Abduction 4 Good PT-OP-O Vestibular Start: 06/03/21 11:39 Freq: Status: Active Protocol: Document 06/04/21 14:30 AMB (Rec: 06/10/21 15:58 AMB [id number]) Vestibular Assessment Positional Testing [place]-Hallpike Negative Left,Negative Right Rolling Test Negative Left,Negative Right PT-OP-Q Treatments Start: 06/03/21 11:39 Freq: Status: Active Protocol: Document 06/12/21 10:30 AMB (Rec: 06/14/21 10:18 AMB [id number]) Therapeutic Exercises Standing Exercises hip ext Standing Exercise Name AROM Reps/Minutes 2x10 Comments //bars hip abd Reps/Minutes 3- increased pain so stopped marching Reps/Minutes 2x10 sit to stand Reps/Minutes 10 Comments HEP-uses UEs Gait Training Gait Activity 1 Device Used SPC Comments smooth terrain 200' Neuro Re-Education Treatment Balance Activities NBOS Comments EC- challenging hurdles Comments fwd stepping foam balance Details // bars Comments with slow head turns r and l PT-OP-T Assessment and Plan Start: 06/03/21 11:39 Freq: Status: Active Protocol: Document 06/12/21 10:32 AMB (Rec: 06/12/21 11:16 AMB [id number]) Physical Therapy Assessment Goals Two Impairment Gait Short Term Goal (STG) Michelle will ascend and descend a flight of stairs with an alternating gait pattern. STG Duration 4 weeks Fpc Goal (LTG) Michelle will ambulate for 6 minutes over smooth terrain without LOB or AD. LTG Duration 8 weeks One Impairment Balance Short Term Goal (STG) Michelle will improve her DGI to 18/24 or greater. STG Duration 4 weeks Circuit Breaker Supervisor Goal (LTG) Michelle will improve her 5x sit to stand test score to 15 seconds without any dizziness. LTG Duration 8 weeks Assessment Summary Assessment MO tolerated exercise well today. Hip abduction increases her long standing hip pain, so did not continue with that, but otherwise she was able to have better stability today than at [facility]. Physical Therapy Plan Next Visit Focus/Plan Next Visit Plan review sit to stand start balance training
--- NOTE | 2021-06-24 16:22 | PT.OTN ---
Current Diagnoses Transient cerebral ischemic attack, unspecified (06/24/21) Other specified disorders of Eustachian tube, unspecified ear (06/24/21) Other abnormalities of gait and mobility (06/24/21) Dizziness and giddiness (06/24/21) Physical Therapy Treatment Note PT-OP-A Visit Information Start: 06/03/21 11:39 Freq: Status: Active Protocol: Document 06/24/21 13:09 AMB (Rec: 06/24/21 13:53 AMB [id number]) Out-Patient Physical Therapy Visit Information Visit Information Visit Type Treatment Note Visit Start Time 13:00 Visit Stop Time 13:45 Total Visit Minutes 45 Visit Number 3 PT-OP-B Current Condition Start: 06/03/21 11:39 Freq: Status: Active Protocol: Document 06/04/21 14:32 AMB (Rec: 06/04/21 14:44 AMB [id number]) Current Condition History of Current Condition Onset Date 05/12/21 Current Complaints Dizziness/right sided weakness History of Current Condition Michelle was hospitalized for TIA one month ago and since coming home she reports the dizziness bad in the morning, better throughout the day. Started May 12. R sided weakness. When standing up feels faint, but could come on briefly even with sitting still. Hasn't been drinking much fluid the last two days. Does have some chronic bilateral hip pain and low back pain. Walking seems to make the pain worse. Not driving because of the weakness and dizziness. Attends PT with [facility]. Does furniture walk at night and feels woozy then when she gets up to go to the bathroom. She reports the dizziness is the worse with turning around or oving fast and does take a couple seconds to a minute to resolve. Treatment Goals Patient/Caregiver Goals Not be dizzy/lightheaded/ offbalance Prior Functional Status Baseline Function- ADL's Independent Baseline Function- Mobility Independent Personal Factors Other Personal Factors That May Effect HTN, depression, COPD Therapy/Recovery PT-OP-C Subjective Start: 06/03/21 11:39 Freq: Status: Active Protocol: Document 06/24/21 13:09 AMB (Rec: 06/24/21 13:53 AMB [id number]) OP-PT Subjective Patient Comments Patient Comments 123/83, 98bpm in seated Pt noting increased dizziness. PT-OP-D Balance Start: 06/03/21 11:39 Freq: Status: Active Protocol: Document 06/04/21 14:30 AMB (Rec: 06/10/21 15:58 AMB [id number]) Balance Tests mCTSIB mCTSIB Position 1 30 mCTSIB Position 2 fall PT-OP-E Functional Tests Start: 06/03/21 11:39 Freq: Status: Active Protocol: Document 06/04/21 14:30 AMB (Rec: 06/10/21 15:58 AMB [id number]) Functional Tests Dynamic Gait Index (DGI) Score 14 DGI Impairment Rating 40 to <60% Impaired (Score 10- 14) Five Times Sit to Stand Test Score 20 PT-OP-H Neuro Start: 06/03/21 11:39 Freq: Status: Active Protocol: Document 06/04/21 14:54 AMB (Rec: 06/04/21 15:04 AMB [id number]) Vital Signs Blood Pressure Standing Blood Pressure (90/60-120/80 mmHg) 128/79 H Blood Pressure Source Automatic Cuff Supine Blood Pressure (90/60-120/80 mmHg) 137/84 H Blood Pressure Source Automatic Cuff,Left Upper Extremity PT-OP-M Strength Start: 06/10/21 15:58 Freq: Status: Active Protocol: Document 06/04/21 14:30 AMB (Rec: 06/10/21 16:01 AMB [id number]) Hip Strength Hip Manual Muscle Testing Right Flexion (L2) 4- Good- Extension (S1) 3+ Fair+ Abduction 4- Good- Left Flexion (L2) 4 Good Extension (S1) 4- Good- Abduction 4 Good PT-OP-O Vestibular Start: 06/03/21 11:39 Freq: Status: Active Protocol: Document 06/04/21 14:30 AMB (Rec: 06/10/21 15:58 AMB [id number]) Vestibular Assessment Positional Testing [place]-Hallpike Negative Left,Negative Right Rolling Test Negative Left,Negative Right PT-OP-Q Treatments Start: 06/03/21 11:39 Freq: Status: Active Protocol: Document 06/24/21 16:19 AMB (Rec: 06/24/21 16:22 AMB [id number]) Neuro Re-Education Treatment Balance Activities head turns Comments vertical/horizontal, WBOS, NBOS educated in safety of HEP , different types of dizziness . PT-OP-T Assessment and Plan Start: 06/03/21 11:39 Freq: Status: Active Protocol: Document 06/24/21 16:19 AMB (Rec: 06/24/21 16:22 AMB [id number]) Physical Therapy Assessment Goals Two Impairment Gait Short Term Goal (STG) Michelle will ascend and descend a flight of stairs with an alternating gait pattern. STG Duration 4 weeks Long-Term Goal (LTG) Michelle will ambulate for 6 minutes over smooth terrain without LOB or AD. LTG Duration 8 weeks One Impairment Balance Short Term Goal (STG) Michelle will improve her DGI to 18/24 or greater. STG Duration 4 weeks School Counsellor Goal (LTG) Michelle will improve her 5x sit to stand test score to 15 seconds without any dizziness. LTG Duration 8 weeks Assessment Summary Assessment BJ with increased feeling of being off balance today, BP tested but automatic cuff had a difficult time in standing. Will reassess [place]_hallpike and BP again later in the week if pt continues to have increased sx. Started head turn habituation. Physical Therapy Plan Next Visit Focus/Plan Next Visit Plan review sit to stand start balance training
--- NOTE | 2021-06-28 15:46 | PT.OTN ---
Current Diagnoses Transient cerebral ischemic attack, unspecified (06/28/21) Other specified disorders of Eustachian tube, unspecified ear (06/28/21) Other abnormalities of gait and mobility (06/28/21) Dizziness and giddiness (06/28/21) Physical Therapy Treatment Note PT-OP-A Visit Information Start: 06/03/21 11:39 Freq: Status: Active Protocol: Document 06/28/21 13:46 AMB (Rec: 06/28/21 14:38 AMB [id number]) Out-Patient Physical Therapy Visit Information Visit Information Visit Type Treatment Note Visit Start Time 13:45 Visit Stop Time 14:30 Total Visit Minutes 45 Visit Number 4 PT-OP-B Current Condition Start: 06/03/21 11:39 Freq: Status: Active Protocol: Document 06/04/21 14:32 AMB (Rec: 06/04/21 14:44 AMB [id number]) Current Condition History of Current Condition Onset Date 05/12/21 Current Complaints Dizziness/right sided weakness History of Current Condition Michelle was hospitalized for TIA one month ago and since coming home she reports the dizziness bad in the morning, better throughout the day. Started May 12. R sided weakness. When standing up feels faint, but could come on briefly even with sitting still. Hasn't been drinking much fluid the last two days. Does have some chronic bilateral hip pain and low back pain. Walking seems to make the pain worse. Not driving because of the weakness and dizziness. Attends PT with [facility]. Does furniture walk at night and feels woozy then when she gets up to go to the bathroom. She reports the dizziness is the worse with turning around or oving fast and does take a couple seconds to a minute to resolve. Treatment Goals Patient/Caregiver Goals Not be dizzy/lightheaded/ offbalance Prior Functional Status Baseline Function- ADL's Independent Baseline Function- Mobility Independent Personal Factors Other Personal Factors That May Effect HTN, depression, COPD Therapy/Recovery PT-OP-C Subjective Start: 06/03/21 11:39 Freq: Status: Active Protocol: Document 06/28/21 13:46 AMB (Rec: 06/28/21 14:38 AMB [id number]) OP-PT Subjective Patient Comments Patient Comments Continues to be most woozy first thing in the morning with sitting up. PT-OP-D Balance Start: 06/03/21 11:39 Freq: Status: Active Protocol: Document 06/04/21 14:30 AMB (Rec: 06/10/21 15:58 AMB [id number]) Balance Tests mCTSIB mCTSIB Position 1 30 mCTSIB Position 2 fall PT-OP-E Functional Tests Start: 06/03/21 11:39 Freq: Status: Active Protocol: Document 06/04/21 14:30 AMB (Rec: 06/10/21 15:58 AMB [id number]) Functional Tests Dynamic Gait Index (DGI) Score 14 DGI Impairment Rating 40 to <60% Impaired (Score 10- 14) Five Times Sit to Stand Test Score 20 PT-OP-H Neuro Start: 06/03/21 11:39 Freq: Status: Active Protocol: Document 06/04/21 14:54 AMB (Rec: 06/04/21 15:04 AMB [id number]) Vital Signs Blood Pressure Standing Blood Pressure (90/60-120/80 mmHg) 128/79 H Blood Pressure Source Automatic Cuff Supine Blood Pressure (90/60-120/80 mmHg) 137/84 H Blood Pressure Source Automatic Cuff,Left Upper Extremity PT-OP-M Strength Start: 06/10/21 15:58 Freq: Status: Active Protocol: Document 06/04/21 14:30 AMB (Rec: 06/10/21 16:01 AMB [id number]) Hip Strength Hip Manual Muscle Testing Right Flexion (L2) 4- Good- Extension (S1) 3+ Fair+ Abduction 4- Good- Left Flexion (L2) 4 Good Extension (S1) 4- Good- Abduction 4 Good PT-OP-O Vestibular Start: 06/03/21 11:39 Freq: Status: Active Protocol: Document 06/04/21 14:30 AMB (Rec: 06/10/21 15:58 AMB [id number]) Vestibular Assessment Positional Testing [place]-Hallpike Negative Left,Negative Right Rolling Test Negative Left,Negative Right PT-OP-Q Treatments Start: 06/03/21 11:39 Freq: Status: Active Protocol: Document 06/28/21 13:45 AMB (Rec: 06/28/21 15:45 AMB [id number]) Therapeutic Exercises Standing Exercises heel raises Standing Exercise Name bilateral Reps/Minutes 10 Comments railing hip ext Standing Exercise Name AROM Reps/Minutes 2x10 Comments railing marching Reps/Minutes 2x10 sit to stand Reps/Minutes 10 Comments HEP-uses UEs Neuro Re-Education Treatment Balance Activities head turns Comments vertical/horizontal, WBOS, NBOS educated in safety of HEP , different types of dizziness . foam balance Details // bars Comments with slow head turns r and l Other Activities 1 Comments recheck [place] Hallpike and supine roll test-- all negative for nystagmus or sx walking with head turns Comments horizontal and vertical PT-OP-T Assessment and Plan Start: 06/03/21 11:39 Freq: Status: Active Protocol: Document 06/28/21 13:46 AMB (Rec: 06/28/21 14:38 AMB [id number]) Physical Therapy Assessment Goals Two Impairment Gait Short Term Goal (STG) Michelle will ascend and descend a flight of stairs with an alternating gait pattern. STG Duration 4 weeks Fpc Goal (LTG) Michelle will ambulate for 6 minutes over smooth terrain without LOB or AD. LTG Duration 8 weeks One Impairment Balance Short Term Goal (STG) Michelle will improve her DGI to 18/24 or greater. STG Duration 4 weeks Fpc Goal (LTG) Michelle will improve her 5x sit to stand test score to 15 seconds without any dizziness. LTG Duration 8 weeks Assessment Summary Assessment Again no nystagmus with positional testing, so woozy more likely centrally caused at this point. Continued to educate in R LE strengthening. Physical Therapy Plan Next Visit Focus/Plan Next Visit Plan Continue strengthening and balance training
--- NOTE | 2021-07-02 13:57 | PT.OTN ---
Current Diagnoses Transient cerebral ischemic attack, unspecified (07/02/21) Other specified disorders of Eustachian tube, unspecified ear (07/02/21) Other abnormalities of gait and mobility (07/02/21) Dizziness and giddiness (07/02/21) Physical Therapy Treatment Note PT-OP-A Visit Information Start: 06/03/21 11:39 Freq: Status: Active Protocol: Document 07/02/21 13:02 AMB (Rec: 07/02/21 13:57 AMB [id number]) Out-Patient Physical Therapy Visit Information Visit Information Visit Type Treatment Note Visit Start Time 13:00 Visit Stop Time 13:45 Total Visit Minutes 45 Visit Number 5 PT-OP-B Current Condition Start: 06/03/21 11:39 Freq: Status: Active Protocol: Document 06/04/21 14:32 AMB (Rec: 06/04/21 14:44 AMB [id number]) Current Condition History of Current Condition Onset Date 05/12/21 Current Complaints Dizziness/right sided weakness History of Current Condition Michelle was hospitalized for TIA one month ago and since coming home she reports the dizziness bad in the morning, better throughout the day. Started May 12. R sided weakness. When standing up feels faint, but could come on briefly even with sitting still. Hasn't been drinking much fluid the last two days. Does have some chronic bilateral hip pain and low back pain. Walking seems to make the pain worse. Not driving because of the weakness and dizziness. Attends PT with [facility]. Does furniture walk at night and feels woozy then when she gets up to go to the bathroom. She reports the dizziness is the worse with turning around or oving fast and does take a couple seconds to a minute to resolve. Treatment Goals Patient/Caregiver Goals Not be dizzy/lightheaded/ offbalance Prior Functional Status Baseline Function- ADL's Independent Baseline Function- Mobility Independent Personal Factors Other Personal Factors That May Effect HTN, depression, COPD Therapy/Recovery PT-OP-C Subjective Start: 06/03/21 11:39 Freq: Status: Active Protocol: Document 07/02/21 13:02 AMB (Rec: 07/02/21 13:57 AMB [id number]) OP-PT Subjective Patient Comments Patient Comments Pt is going to the grocery store later, has gone once since her stroke. Is thinking she probably won't need OT. PT-OP-D Balance Start: 06/03/21 11:39 Freq: Status: Active Protocol: Document 06/04/21 14:30 AMB (Rec: 06/10/21 15:58 AMB [id number]) Balance Tests mCTSIB mCTSIB Position 1 30 mCTSIB Position 2 fall PT-OP-E Functional Tests Start: 06/03/21 11:39 Freq: Status: Active Protocol: Document 06/04/21 14:30 AMB (Rec: 06/10/21 15:58 AMB [id number]) Functional Tests Dynamic Gait Index (DGI) Score 14 DGI Impairment Rating 40 to <60% Impaired (Score 10- 14) Five Times Sit to Stand Test Score 20 PT-OP-H Neuro Start: 06/03/21 11:39 Freq: Status: Active Protocol: Document 06/04/21 14:54 AMB (Rec: 06/04/21 15:04 AMB [id number]) Vital Signs Blood Pressure Standing Blood Pressure (90/60-120/80 mmHg) 128/79 H Blood Pressure Source Automatic Cuff Supine Blood Pressure (90/60-120/80 mmHg) 137/84 H Blood Pressure Source Automatic Cuff,Left Upper Extremity PT-OP-M Strength Start: 06/10/21 15:58 Freq: Status: Active Protocol: Document 06/04/21 14:30 AMB (Rec: 06/10/21 16:01 AMB [id number]) Hip Strength Hip Manual Muscle Testing Right Flexion (L2) 4- Good- Extension (S1) 3+ Fair+ Abduction 4- Good- Left Flexion (L2) 4 Good Extension (S1) 4- Good- Abduction 4 Good PT-OP-O Vestibular Start: 06/03/21 11:39 Freq: Status: Active Protocol: Document 06/04/21 14:30 AMB (Rec: 06/10/21 15:58 AMB [id number]) Vestibular Assessment Positional Testing [place]-Hallpike Negative Left,Negative Right Rolling Test Negative Left,Negative Right PT-OP-Q Treatments Start: 06/03/21 11:39 Freq: Status: Active Protocol: Document 07/02/21 13:02 AMB (Rec: 07/02/21 13:57 AMB [id number]) Therapeutic Exercises Standing Exercises sit to stand Reps/Minutes 10 Comments HEP-uses UEs Gait Training Gait Activity stairs Device Used rail/SPC Distance/Duration 2x4, 6 Comments step over step 1 Description 6MWT Comments SPC one rest break due to hip pain Neuro Re-Education Treatment Other Activities DGI Details Comments biggest challenge with hurdles , horizontal head turns walking with head turns Comments horizontal and vertical PT-OP-T Assessment and Plan Start: 06/03/21 11:39 Freq: Status: Active Protocol: Document 07/02/21 13:02 AMB (Rec: 07/02/21 13:57 AMB [id number]) Physical Therapy Assessment Goals Two Impairment Gait Short Term Goal (STG) Michelle will ascend and descend a flight of stairs with an alternating gait pattern. STG Duration MET- needs cane and railing Group Home Goal (LTG) Michelle will ambulate for 6 minutes over smooth terrain without LOB or AD. 3:29 continues to need SPC, does have hip pain that limits. 837- norm is 1,300-1,500ft. LTG Duration 8 weeks One Impairment Balance Short Term Goal (STG) Michelle will improve her DGI to 18/24 or greater. STG Duration MET 18 Production Bow Maker Goal (LTG) Michelle will improve her 5x sit to stand test score to 15 seconds without any dizziness. 07/02: 18seconds LTG Duration 8 weeks Assessment Summary Assessment Michelle is making gains in PT. Hip pain is a limiting factor, signficantly under age norms for gait speed, but pain and imbalance impact this . Is showing improvement with stairs, DGI, and sit to stand . Physical Therapy Plan Next Visit Focus/Plan Next Visit Plan Continue strengthening and balance training, progress HEP
--- NOTE | 2021-07-05 15:26 | PT.OTN ---
Current Diagnoses Transient cerebral ischemic attack, unspecified (07/05/21) Other specified disorders of Eustachian tube, unspecified ear (07/05/21) Other abnormalities of gait and mobility (07/05/21) Dizziness and giddiness (07/05/21) Physical Therapy Treatment Note PT-OP-A Visit Information Start: 06/03/21 11:39 Freq: Status: Active Protocol: Document 07/05/21 13:50 AMB (Rec: 07/05/21 14:35 AMB [id number]) Out-Patient Physical Therapy Visit Information Visit Information Visit Type Treatment Note Visit Start Time 13:45 Visit Stop Time 14:30 Total Visit Minutes 45 Visit Number 6 PT-OP-B Current Condition Start: 06/03/21 11:39 Freq: Status: Active Protocol: Document 06/04/21 14:32 AMB (Rec: 06/04/21 14:44 AMB [id number]) Current Condition History of Current Condition Onset Date 05/12/21 Current Complaints Dizziness/right sided weakness History of Current Condition Michelle was hospitalized for TIA one month ago and since coming home she reports the dizziness bad in the morning, better throughout the day. Started May 12. R sided weakness. When standing up feels faint, but could come on briefly even with sitting still. Hasn't been drinking much fluid the last two days. Does have some chronic bilateral hip pain and low back pain. Walking seems to make the pain worse. Not driving because of the weakness and dizziness. Attends PT with [facility]. Does furniture walk at night and feels woozy then when she gets up to go to the bathroom. She reports the dizziness is the worse with turning around or oving fast and does take a couple seconds to a minute to resolve. Treatment Goals Patient/Caregiver Goals Not be dizzy/lightheaded/ offbalance Prior Functional Status Baseline Function- ADL's Independent Baseline Function- Mobility Independent Personal Factors Other Personal Factors That May Effect HTN, depression, COPD Therapy/Recovery PT-OP-C Subjective Start: 06/03/21 11:39 Freq: Status: Active Protocol: Document 07/05/21 13:50 AMB (Rec: 07/05/21 14:35 AMB [id number]) OP-PT Subjective Patient Comments Patient Comments Pt was tired after going to the grocery store on Thursday and doing PT, hip hurt more on Thursday, thinks dizziness is a little better. PT-OP-D Balance Start: 06/03/21 11:39 Freq: Status: Active Protocol: Document 06/04/21 14:30 AMB (Rec: 06/10/21 15:58 AMB [id number]) Balance Tests mCTSIB mCTSIB Position 1 30 mCTSIB Position 2 fall PT-OP-E Functional Tests Start: 06/03/21 11:39 Freq: Status: Active Protocol: Document 06/04/21 14:30 AMB (Rec: 06/10/21 15:58 AMB [id number]) Functional Tests Dynamic Gait Index (DGI) Score 14 DGI Impairment Rating 40 to <60% Impaired (Score 10- 14) Five Times Sit to Stand Test Score 20 PT-OP-H Neuro Start: 06/03/21 11:39 Freq: Status: Active Protocol: Document 06/04/21 14:54 AMB (Rec: 06/04/21 15:04 AMB [id number]) Vital Signs Blood Pressure Standing Blood Pressure (90/60-120/80 mmHg) 128/79 H Blood Pressure Source Automatic Cuff Supine Blood Pressure (90/60-120/80 mmHg) 137/84 H Blood Pressure Source Automatic Cuff,Left Upper Extremity PT-OP-M Strength Start: 06/10/21 15:58 Freq: Status: Active Protocol: Document 06/04/21 14:30 AMB (Rec: 06/10/21 16:01 AMB [id number]) Hip Strength Hip Manual Muscle Testing Right Flexion (L2) 4- Good- Extension (S1) 3+ Fair+ Abduction 4- Good- Left Flexion (L2) 4 Good Extension (S1) 4- Good- Abduction 4 Good PT-OP-O Vestibular Start: 06/03/21 11:39 Freq: Status: Active Protocol: Document 06/04/21 14:30 AMB (Rec: 06/10/21 15:58 AMB [id number]) Vestibular Assessment Positional Testing [place]-Hallpike Negative Left,Negative Right Rolling Test Negative Left,Negative Right PT-OP-Q Treatments Start: 06/03/21 11:39 Freq: Status: Active Protocol: Document 07/05/21 13:50 AMB (Rec: 07/05/21 14:35 AMB [id number]) Cardio Equipment Recumbent Stepper (Sci-Fit) Duration (Minutes) 5 Resistance 2 Gym Equipment Shuttle Recovery Unilateral Squats Resistance 50 Reps/Time 10 Bilateral Squats Resistance 50 Reps/Time 2x10 Therapeutic Exercises Standing Exercises heel raises Standing Exercise Name bilateral Reps/Minutes 10 Comments railing hip ext Standing Exercise Name AROM Reps/Minutes 2x10 Comments railing hip abd Reps/Minutes 3- increased pain so stopped marching Reps/Minutes 2x10 sit to stand Reps/Minutes 10 Comments HEP-uses UEs PT-OP-T Assessment and Plan Start: 06/03/21 11:39 Freq: Status: Active Protocol: Document 07/05/21 13:50 AMB (Rec: 07/05/21 14:35 AMB [id number]) Physical Therapy Assessment Goals Two Impairment Gait Short Term Goal (STG) Michelle will ascend and descend a flight of stairs with an alternating gait pattern. STG Duration MET- needs cane and railing Composite Science Teacher Goal (LTG) Michelle will ambulate for 6 minutes over smooth terrain without LOB or AD. 3:29 continues to need SPC, does have hip pain that limits. 837- norm is 1,300-1,500ft. LTG Duration 8 weeks One Impairment Balance Short Term Goal (STG) Michelle will improve her DGI to 18/24 or greater. STG Duration MET 18/24 Fpc Goal (LTG) Michelle will improve her 5x sit to stand test score to 15 seconds without any dizziness. 329: 18seconds LTG Duration 8 weeks Assessment Summary Assessment Gave hip extension and marching as HEP, Michelle did well with sidestepping and that could be considered for HEP at next visit if her hip is feeling better. Follow up on hip pain after [employer] trip. Overall dizziness seems to be improving. Physical Therapy Plan Next Visit Focus/Plan Next Visit Plan Continue strengthening and balance training, progress HEP
--- NOTE | 2021-07-08 16:02 | PT.OTN ---
Current Diagnoses Transient cerebral ischemic attack, unspecified (07/08/21) Other specified disorders of Eustachian tube, unspecified ear (07/08/21) Other abnormalities of gait and mobility (07/08/21) Dizziness and giddiness (07/08/21) Physical Therapy Treatment Note PT-OP-A Visit Information Start: 06/03/21 11:39 Freq: Status: Active Protocol: Document 07/08/21 13:45 AMB (Rec: 07/08/21 14:27 AMB [id number]) Out-Patient Physical Therapy Visit Information Visit Information Visit Type Treatment Note Visit Start Time 13:45 Visit Stop Time 14:30 Total Visit Minutes 45 Visit Number 7 PT-OP-B Current Condition Start: 06/03/21 11:39 Freq: Status: Active Protocol: Document 06/04/21 14:32 AMB (Rec: 06/04/21 14:44 AMB [id number]) Current Condition History of Current Condition Onset Date 05/12/21 Current Complaints Dizziness/right sided weakness History of Current Condition Michelle was hospitalized for TIA one month ago and since coming home she reports the dizziness bad in the morning, better throughout the day. Started May 12. R sided weakness. When standing up feels faint, but could come on briefly even with sitting still. Hasn't been drinking much fluid the last two days. Does have some chronic bilateral hip pain and low back pain. Walking seems to make the pain worse. Not driving because of the weakness and dizziness. Attends PT with [facility]. Does furniture walk at night and feels woozy then when she gets up to go to the bathroom. She reports the dizziness is the worse with turning around or oving fast and does take a couple seconds to a minute to resolve. Treatment Goals Patient/Caregiver Goals Not be dizzy/lightheaded/ offbalance Prior Functional Status Baseline Function- ADL's Independent Baseline Function- Mobility Independent Personal Factors Other Personal Factors That May Effect HTN, depression, COPD Therapy/Recovery PT-OP-C Subjective Start: 06/03/21 11:39 Freq: Status: Active Protocol: Document 07/08/21 13:45 AMB (Rec: 07/08/21 14:27 AMB [id number]) OP-PT Subjective Patient Comments Patient Comments Pt's dizziness is going well. Does continue to have hip pain. PT-OP-D Balance Start: 06/03/21 11:39 Freq: Status: Active Protocol: Document 06/04/21 14:30 AMB (Rec: 06/10/21 15:58 AMB [id number]) Balance Tests mCTSIB mCTSIB Position 1 30 mCTSIB Position 2 fall PT-OP-E Functional Tests Start: 06/03/21 11:39 Freq: Status: Active Protocol: Document 06/04/21 14:30 AMB (Rec: 06/10/21 15:58 AMB [id number]) Functional Tests Dynamic Gait Index (DGI) Score 14 DGI Impairment Rating 40 to <60% Impaired (Score 10- 14) Five Times Sit to Stand Test Score 20 PT-OP-H Neuro Start: 06/03/21 11:39 Freq: Status: Active Protocol: Document 06/04/21 14:54 AMB (Rec: 06/04/21 15:04 AMB [id number]) Vital Signs Blood Pressure Standing Blood Pressure (90/60-120/80 mmHg) 128/79 H Blood Pressure Source Automatic Cuff Supine Blood Pressure (90/60-120/80 mmHg) 137/84 H Blood Pressure Source Automatic Cuff,Left Upper Extremity PT-OP-M Strength Start: 06/10/21 15:58 Freq: Status: Active Protocol: Document 06/04/21 14:30 AMB (Rec: 06/10/21 16:01 AMB [id number]) Hip Strength Hip Manual Muscle Testing Right Flexion (L2) 4- Good- Extension (S1) 3+ Fair+ Abduction 4- Good- Left Flexion (L2) 4 Good Extension (S1) 4- Good- Abduction 4 Good PT-OP-O Vestibular Start: 06/03/21 11:39 Freq: Status: Active Protocol: Document 06/04/21 14:30 AMB (Rec: 06/10/21 15:58 AMB [id number]) Vestibular Assessment Positional Testing Nette-Hallpike Negative Left,Negative Right Rolling Test Negative Left,Negative Right PT-OP-Q Treatments Start: 06/03/21 11:39 Freq: Status: Active Protocol: Document 07/08/21 13:45 AMB (Rec: 07/08/21 14:27 AMB [id number]) Cardio Equipment Recumbent Elliptical ([employer]) Duration (Minutes) 5 Resistance 4 Therapeutic Exercises Standing Exercises fwd mini lunges Reps/Minutes 2x10 stair tap up Equipment Used 6 Reps/Minutes 2x10 Comments no UE support sidestepping Reps/Minutes 4x20' heel raises Standing Exercise Name bilateral Reps/Minutes 10 Comments railing hip ext Standing Exercise Name AROM Reps/Minutes 2x10 Comments railing marching Reps/Minutes 2x10 sit to stand Reps/Minutes 15 Comments HEP-uses UEs Neuro Re-Education Treatment Balance Activities hurdles Comments fwd stepping PT-OP-T Assessment and Plan Start: 06/03/21 11:39 Freq: Status: Active Protocol: Document 07/08/21 13:45 AMB (Rec: 07/08/21 14:27 AMB [id number]) Physical Therapy Assessment Goals Two Impairment Gait Short Term Goal (STG) Michelle will ascend and descend a flight of stairs with an alternating gait pattern. STG Duration MET- needs cane and railing Director Process Goal (LTG) Michelle will ambulate for 6 minutes over smooth terrain without LOB or AD. 3:29 continues to need SPC, does have hip pain that limits. 837- norm is 1,300-1,500ft. LTG Duration 8 weeks One Impairment Balance Short Term Goal (STG) Michelle will improve her DGI to 18/24 or greater. STG Duration MET 18/24 Half-Way Goal (LTG) Michelle will improve her 5x sit to stand test score to 15 seconds without any dizziness. 329: 18seconds LTG Duration 8 weeks Assessment Summary Assessment Dizziness is getting better but right leg continues to fatigue much faster than patients baseline. Physical Therapy Plan Next Visit Focus/Plan Next Visit Plan Continue strengthening and balance training, progress HEP
--- NOTE | 2021-08-02 16:00 | PT.OTN ---
Current Diagnoses Transient cerebral ischemic attack, unspecified (08/02/21) Other specified disorders of Eustachian tube, unspecified ear (08/02/21) Other abnormalities of gait and mobility (08/02/21) Dizziness and giddiness (08/02/21) Physical Therapy Treatment Note PT-OP-A Visit Information Start: 06/03/21 11:39 Freq: Status: Active Protocol: Document 08/02/21 14:34 AMB (Rec: 08/02/21 15:34 AMB [id number]) Out-Patient Physical Therapy Visit Information Visit Information Visit Type Progress Note Visit Start Time 14:30 Visit Stop Time 15:15 Total Visit Minutes 45 Visit Number 8 PT-OP-B Current Condition Start: 06/03/21 11:39 Freq: Status: Active Protocol: Document 06/04/21 14:32 AMB (Rec: 06/04/21 14:44 AMB [id number]) Current Condition History of Current Condition Onset Date 05/12/21 Current Complaints Dizziness/right sided weakness History of Current Condition Michelle was hospitalized for TIA one month ago and since coming home she reports the dizziness bad in the morning, better throughout the day. Started May 12. R sided weakness. When standing up feels faint, but could come on briefly even with sitting still. Hasn't been drinking much fluid the last two days. Does have some chronic bilateral hip pain and low back pain. Walking seems to make the pain worse. Not driving because of the weakness and dizziness. Attends PT with [facility]. Does furniture walk at night and feels woozy then when she gets up to go to the bathroom. She reports the dizziness is the worse with turning around or oving fast and does take a couple seconds to a minute to resolve. Treatment Goals Patient/Caregiver Goals Not be dizzy/lightheaded/ offbalance Prior Functional Status Baseline Function- ADL's Independent Baseline Function- Mobility Independent Personal Factors Other Personal Factors That May Effect HTN, depression, COPD Therapy/Recovery PT-OP-C Subjective Start: 06/03/21 11:39 Freq: Status: Active Protocol: Document 08/02/21 14:34 AMB (Rec: 08/02/21 15:34 AMB [id number]) OP-PT Subjective Patient Comments Patient Comments Pt has found a balance DVD but not used it yet. Pt had a bad cold and then got constipated and had increased pain down the left leg but that is now better. PT-OP-D Balance Start: 06/03/21 11:39 Freq: Status: Active Protocol: Document 06/04/21 14:30 AMB (Rec: 06/10/21 15:58 AMB [id number]) Balance Tests mCTSIB mCTSIB Position 1 30 mCTSIB Position 2 fall PT-OP-E Functional Tests Start: 06/03/21 11:39 Freq: Status: Active Protocol: Document 06/04/21 14:30 AMB (Rec: 06/10/21 15:58 AMB [id number]) Functional Tests Dynamic Gait Index (DGI) Score 14 DGI Impairment Rating 40 to <60% Impaired (Score 10- 14) Five Times Sit to Stand Test Score 20 PT-OP-H Neuro Start: 06/03/21 11:39 Freq: Status: Active Protocol: Document 06/04/21 14:54 AMB (Rec: 06/04/21 15:04 AMB [id number]) Vital Signs Blood Pressure Standing Blood Pressure (90/60-120/80 mmHg) 128/79 H Blood Pressure Source Automatic Cuff Supine Blood Pressure (90/60-120/80 mmHg) 137/84 H Blood Pressure Source Automatic Cuff,Left Upper Extremity PT-OP-M Strength Start: 06/10/21 15:58 Freq: Status: Active Protocol: Document 06/04/21 14:30 AMB (Rec: 06/10/21 16:01 AMB [id number]) Hip Strength Hip Manual Muscle Testing Right Flexion (L2) 4- Good- Extension (S1) 3+ Fair+ Abduction 4- Good- Left Flexion (L2) 4 Good Extension (S1) 4- Good- Abduction 4 Good PT-OP-O Vestibular Start: 06/03/21 11:39 Freq: Status: Active Protocol: Document 06/04/21 14:30 AMB (Rec: 06/10/21 15:58 AMB [id number]) Vestibular Assessment Positional Testing Nette-Hallpike Negative Left,Negative Right Rolling Test Negative Left,Negative Right PT-OP-Q Treatments Start: 06/03/21 11:39 Freq: Status: Active Protocol: Document 08/02/21 16:00 AMB (Rec: 08/05/21 08:36 AMB [id number]) Therapeutic Exercises Standing Exercises fwd mini lunges Reps/Minutes 2x10 heel raises Standing Exercise Name bilateral Reps/Minutes 10 Comments railing hip ext Standing Exercise Name AROM Reps/Minutes 2x10 Comments railing hip abd Reps/Minutes 3- increased pain so stopped marching Reps/Minutes 2x10 sit to stand Reps/Minutes 15 Comments HEP-uses UEs Gait Training Gait Activity 1 Description 6MWT Comments SPC two rest breaks due to hip pain PT-OP-T Assessment and Plan Start: 06/03/21 11:39 Freq: Status: Active Protocol: Document 08/02/21 14:34 AMB (Rec: 08/02/21 15:34 AMB [id number]) Physical Therapy Assessment Goals Two Impairment Gait Short Term Goal (STG) Michelle will ascend and descend a flight of stairs with an alternating gait pattern. STG Duration MET- needs cane and railing Retirement Goal (LTG) Michelle will ambulate for 6 minutes over smooth terrain without LOB or AD. 5/2 continues to need SPC, does have hip pain that limits. 838- norm is 1,300-1,500ft. LTG Duration 8 weeks One Impairment Balance Short Term Goal (STG) Michelle will improve her DGI to 18/24 or greater. STG Duration MET 18/24 Labor Economics Teacher Goal (LTG) Michelle will improve her 5x sit to stand test score to 15 seconds without any dizziness. 07/02: 18seconds LTG Duration NOT MET- pain Assessment Summary Assessment Michelle reports Left pain going down to ankle since being constipated- she is concerned about her hip, but from her sympotoms and previous lumbar spine injury, I am more concerned about her lumbar spine. I encouraged her to follow up with her PCP, as she has not seen him in the last few months. Dizziness is no longer the main impairment, so Michelle will be discharged from PT, but would be welcome to return as needed to work on her orthopedic issues. Her 6 MWT was similar today to previous sessions, despite her increase in pain. Physical Therapy Plan Frequency and Duration Frequency of Treatment 2x/Week Duration of Treatment 1 weeks Plan of Care Start Date 07/30/21 Plan of Care End Date 08/02/21 Therapeutic Interventions Therapeutic Interventions Balance Training,Gait Training ,Home Exercise Program,Manual Therapy,Neuromuscular Re- education,Self-Care/Home Management,Therapeutic Activities,Therapeutic Exercises Modalities Cold Pack/Ice Massage,Electric Stimulation,Hot Packs
--- NOTE | 2021-08-02 16:00 | PT.OPPOC ---
Addendum entered and electronically signed by My Bonds, PT 08/05/21 08:47: need signature Original Note: Physical, Occupational & Speech Therapy At [facility] Current Diagnoses Transient cerebral ischemic attack, unspecified (08/02/21) Other specified disorders of Eustachian tube, unspecified ear (08/02/21) Other abnormalities of gait and mobility (08/02/21) Dizziness and giddiness (08/02/21) Visit Care Team Role Provider Type Kunal Barrera DO Attending Provider Physician Family Provider Primary Care Provider Referring Provider Specialty: Family Practice Address: [address] [place] [address], [facility] Email: [email or web address] PT-OP-T Assessment and Plan Start: 06/03/21 11:39 Freq: Status: Active Protocol: Document 08/02/21 14:34 AMB (Rec: 08/02/21 15:34 AMB [id number]) Physical Therapy Assessment Goals Two Impairment Gait Short Term Goal (STG) Michelle will ascend and descend a flight of stairs with an alternating gait pattern. STG Duration MET- needs cane and railing Concrete Analyst Goal (LTG) Michelle will ambulate for 6 minutes over smooth terrain without LOB or AD. / continues to need SPC, does have hip pain that limits. 838- norm is 1,300-1,500ft. LTG Duration 8 weeks One Impairment Balance Short Term Goal (STG) Michelle will improve her DGI to 18/24 or greater. STG Duration MET 18/24 Concrete Analyst Goal (LTG) Michelle will improve her 5x sit to stand test score to 15 seconds without any dizziness. 07/02: 18seconds LTG Duration NOT MET- pain Assessment Summary Assessment Michelle reports Left pain going down to ankle since being constipated- she is concerned about her hip, but from her sympotoms and previous lumbar spine injury, I am more concerned about her lumbar spine. I encouraged her to follow up with her PCP, as she has not seen him in the last few months. Dizziness is no longer the main impairment, so Michelle will be discharged from PT, but would be welcome to return as needed to work on her orthopedic issues. Her 6 MWT was similar today to previous sessions, despite her increase in pain. Physical Therapy Plan Frequency and Duration Frequency of Treatment 2x/Week Duration of Treatment 1 weeks Plan of Care Start Date 07/30/21 Plan of Care End Date 08/02/21 Therapeutic Interventions Therapeutic Interventions Balance Training,Gait Training ,Home Exercise Program,Manual Therapy,Neuromuscular Re- education,Self-Care/Home Management,Therapeutic Activities,Therapeutic Exercises Modalities Cold Pack/Ice Massage,Electric Stimulation,Hot Packs Plan of Care Dates Plan of Care Start Date 07/30/21 Plan of Care End Date 08/02/21 Electronically Signed by: My Bonds, PT 08/05/21 0843 If you are in agreement with this Plan of Care, please return a signed and dated copy. I have reviewed this Plan of Care and certify that the skilled therapy services above are required to meet the patient?s needs. Physician Signature Date Printed Name and Credentials Clinical Instructor Signature Printed Name and Credentials
== END 2021-08-06 09:32 ==
LOC: PHYS 14:30
PROVIDERS: Family Provider Family Medicine; PCP Family Medicine; Referring Provider Family Medicine; Visit Provider Family Medicine
DX: G45.9 Transient cerebral ischemic attack, unspecified (principal); H69.80 Other specified disorders of Eustachian tube, unspecified ear; R42 Dizziness and giddiness; R26.89 Other abnormalities of gait and mobility
CPT/HCPCS: 97110; 97112; 97116; 97162

== ENCOUNTER → 2022-02-12 10:26 | Outpatient (CLI) | payer MEDICARE, OTHER, SELFPAY ==
[2021-05-15 14:36] VITALS: BMI 34.7
[2022-02-12 12:26] LABS: Add Manual Diff / Slide Review NO; Basophils Absolute Auto 0 /uL (0-100); Basophils Percent Auto 0.5 % (0-2); Eosinophils Absolute Auto 300 /uL (0-450); Eosinophils Percent Auto 4.7 % (2-4); Hematocrit 37.5 % (36-46); Hemoglobin 12.7 g/dL (12.0-16.0); Lymphocytes Absolute Auto 2000 /uL (1100-4500); Lymphocytes Percent Auto 30.7 % (25-40); Mean Corpuscular HGB Conc 33.9 % (30-36); Mean Corpuscular Hemoglobin 28.4 PG (26-34); Mean Corpuscular Volume 83.9 fL (80-100); Monocytes Absolute Auto 500 /uL (0-900); Neutrophils Absolute Auto 3700 /uL (1500-7000); Neutrophils Percent Auto 56.1 % (50-75); Platelet Count 309 X10^3/uL (150-400); Red Blood Cell Count 4.47 X10^6/uL (4.0-5.2); Red Cell Distribution Width 13.9 % (11.6-14.8); White Blood Cell Count 6.7 X10^3/uL (4.5-11.0)
[2022-02-12 12:56] LABS: Alanine Aminotransferase 43 IU/L (<35); Albumin 4.1 g/dL (3.5-5.0); Albumin Globulin Ratio 1.3 (1.0-2.8); Alkaline Phosphatase 97 U/L (38-126); Aspartate Aminotransferase 45 IU/L (14-36); BUN Creatinine Ratio 20.5 (6-22); Blood Urea Nitrogen 17 mg/dL (7-17); Calcium 9.6 mg/dL (8.4-10.2); Carbon Dioxide 24 mmol/L (22-32); Chloride 102 mmol/L (98-107); Cholesterol 172 mg/dL (140-199); Estimated Glomerular Filt Rate > 60 mL/min (>60); Globulin 3.1 g/dL (1.7-4.1); Glucose 94 mg/dL (80-110); HDL Cholesterol 63 mg/dL (40-60); HEMOLYSIS < 15 (0-50); LDL Cholesterol Calculated 80 mg/dL (<100); Potassium 4.9 mmol/L (3.4-5.1); Sodium 139 mmol/L (137-145); Total Protein 7.2 g/dL (6.3-8.2); Triglycerides 146 mg/dL (35-150)
[2022-02-12 13:04] LABS: TSH w/ Reflex to FT4 1.06 uIU/mL (0.47-4.68)
== END ==
PROVIDERS: Family Provider Family Medicine; PCP Family Medicine; Referring Provider Internal Medicine Cardiovascular Disease; Visit Provider Internal Medicine Cardiovascular Disease
DX: I10 Essential (primary) hypertension (principal); E78.5 Hyperlipidemia, unspecified; I63.9 Cerebral infarction, unspecified; Z13.29 Encounter for screening for other suspected endocrine disorder; G45.9 Transient cerebral ischemic attack, unspecified; K64.8 Other hemorrhoids
CPT/HCPCS: 36415; 80053; 80061; 84443; 85025

== ENCOUNTER → 2022-09-04 12:20 | Outpatient (CLI) | payer MEDICARE, OTHER, SELFPAY ==
[2021-05-15 14:36] VITALS: BMI 34.7
--- NOTE | 2022-09-04 12:21 | DI.RAD.S_ITS ---
PROCEDURE: XR LUMBAR SPINE MIN 4V INDICATIONS: Progressive lower back pain TECHNIQUE: 5 views of the lumbar spine were acquired, including bilateral oblique views. COMPARISON: [facility], , L-SPINE 2-3 VIEWS, 12/07/2007, 12:42. [facility], CR, L-SPINE MINIMUM 4 VIEWS, 09/28/2013, 11:07. FINDINGS: Bones: 5 nonrib-bearing vertebrae are present. There is 31 degree levoscoliosis. Grade 1 anterolisthesis of L5 on S1. There is normal bony alignment. No vertebral body compression fractures. No suspicious bony lesions. Diffuse degenerative disc disease, most pronounced and moderate to severe at L1-L2 and L2-L3, [id number] at other levels. Severe facet arthropathy at L2-L3, L3-L4, L4-L5 and L5-S1. Soft tissues: Overlying bowel gas pattern is normal. No suspicious soft tissue calcifications. Oblique images: No pars defects. IMPRESSION: 1. 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 2. Moderate to severe levoscoliosis. 3. Grade 1 anterolisthesis of L5 on S1. Dictated by: Radha Jose M.D. on 09/05/2022 at 8:08 Approved by: Rdaha Jose M.D. on 09/05/2022 at 8:10
--- NOTE | 2022-09-04 12:21 | DI.RAD.S_ITS ---
PROCEDURE: XR HIP W PEL IF DONE RT 2V INDICATIONS: R hip pain TECHNIQUE: AP pelvis with lateral view(s) of the right hip(s). COMPARISON: [facility], PELVIS W UNILATERAL HIP LEFT, 09/28/2013, 11:05. FINDINGS: Bones: No fractures or dislocations. Pelvic ring appears intact. No suspicious bony lesions. Mild symmetric degenerative joint disease in hips and sacroiliac joints. Soft tissues: The visualized bowel gas pattern is normal. No suspicious soft tissue calcifications. IMPRESSION: Mild degenerative joint disease. Dictated by: Radha Jose M.D. on 09/05/2022 at 8:03 Approved by: Radha Jose M.D. on 09/05/2022 at 8:04
[2022-09-04 13:20] LABS: Alanine Aminotransferase 31 IU/L (<35); Albumin 4.1 g/dL (3.5-5.0); Albumin Globulin Ratio 1.2 (1.0-2.8); Alkaline Phosphatase 78 U/L (38-126); Aspartate Aminotransferase 41 IU/L (14-36); BUN Creatinine Ratio 17.3 (6-22); Blood Urea Nitrogen 17 mg/dL (7-17); Carbon Dioxide 31 mmol/L (22-32); Chloride 100 mmol/L (98-107); Estimated Glomerular Filt Rate > 60 mL/min (>60); Globulin 3.4 g/dL (1.7-4.1); Glucose 99 mg/dL (80-110); HEMOLYSIS < 15 (0-50); Potassium 4.7 mmol/L (3.4-5.1); Sodium 137 mmol/L (137-145); Total Protein 7.5 g/dL (6.3-8.2)
[2022-09-04 13:49] LABS: TSH w/ Reflex to FT4 1.17 uIU/mL (0.47-4.68)
[2022-09-04 20:54] LABS: Appearance Urine UA CLEAR; Bilirubin Urine UA NEGATIVE (NEGATIVE); Color Urine UA YELLOW; Glucose Urine UA NEGATIVE (Negative); Ketones Urine UA NEGATIVE (NEGATIVE); Leukocyte Esterase Urine UA 1+ (NEGATIVE); Nitrite Urine UA NEGATIVE (Negative); Occult Blood Urine UA NEGATIVE (Negative); Protein Urine UA NEGATIVE (Negative); Specific Gravity Urine UA 1.015 (1.000-1.035); Urobilinogen Urine UA 0.2 E.U./dL (0.2)
[2022-09-04 20:55] LABS: Bacteria Urine QNS; Culture Indicated Urine Specimen Cultured; RBC Urine QNS (0-5/HPF); WBC Urine QNS (0-5/HPF)
== END ==
PROVIDERS: Family Provider Family Medicine; PCP Family Medicine; Referring Provider Family Medicine; Visit Provider Family Medicine
DX: R73.03 Prediabetes (principal); I10 Essential (primary) hypertension; R32 Unspecified urinary incontinence
CPT/HCPCS: 36415; 72110; 73502; 80053; 81001; 83036; 84443; 87086

== ENCOUNTER 2022-11-01 21:40 | Emergency (ER) | payer MEDICARE, OTHER, SELFPAY ==
[2021-05-15 14:36] VITALS: BMI 34.7
[2022-11-01 21:48] VITALS: BP 137/77; PULSE 67; RESP 16; TEMP 36.4; O2SAT 97; BMI 33.3
--- NOTE | 2022-11-01 22:18 | DI.CT.S_ITS ---
PROCEDURE: CT CERVICAL SPINE WO CON INDICATIONS: fell hit head, on asa, vertigo, nausea TECHNIQUE: Noncontrast 3 mm thick sections acquired from the skull base to the T4 level. Sagittal and coronal reformats were then constructed. For radiation dose reduction, the following was used: automated exposure control, adjustment of mA and/or kV according to patient size. COMPARISON: None. FINDINGS: Image quality: Excellent. Bones: No fractures or dislocations. Visualized superior ribs are intact. There is reversal cervical curvature with apex at C5-6. Multilevel degenerative disc space narrowing is present. Multilevel anterior osteophytes are present. Soft tissues: Prevertebral soft tissues are normal in thickness. No paravertebral hematomas. No apical pneumothoraces. IMPRESSION: Multilevel degenerative changes of visualized fracture. Dictated by: Lucretia Garcia M.D. on 11/01/2022 at 22:56 Approved by: Lucretia Garcia M.D. on 11/01/2022 at 22:58
--- NOTE | 2022-11-01 22:18 | DI.CT.S_ITS ---
PROCEDURE: CT HEAD/BRAIN WO CON INDICATIONS: fell hit head, on asa, vertigo, nausea TECHNIQUE: Noncontrast 4.5 mm thick angled axial sections acquired from the foramen magnum to the vertex, with coronal and sagittal reformats. For radiation dose reduction, the following was used: automated exposure control, adjustment of mA and/or kV according to patient size. COMPARISON: [facility], CT, CT HEAD/BRAIN WO CON, 05/13/2021, 13:33. FINDINGS: Image quality: Excellent. CSF spaces: Basal cisterns are patent. No extra-axial fluid collections. The ventricles are symmetric in size and shape. Brain: There is a left frontotemporal parietal extradural collection of hyperdensity. The thickest dimension measures 8 mm in the left frontal temporal lobe. There is cerebral volume loss for age, with resultant ventricular and sulcal prominence. There are periventricular and deep white matter chronic small vessel ischemic changes. There is intracranial internal carotid artery atherosclerosis. Skull and face: Calvarium and visualized facial bones appear intact, without suspicious lesions. Sinuses: Visualized sinuses and mastoids are clear. IMPRESSION: Left frontotemporal parietal hyperdensity most consistent with subdural hematoma. No visualized underlying fracture. The above findings were discussed with Dr. Irasema Conway on 11/01/2022 at 10:55 p.m.. Dictated by: Lucretia Garcia M.D. on 11/01/2022 at 22:52 Approved by: Lucretia Garcia M.D. on 11/01/2022 at 22:55
[2022-11-01] MEDS: ONDANSETRON 4 MG ODT SL (22:23)
[2022-11-01 22:35] VITALS: BP 128/59; PULSE 70; O2SAT 94
[2022-11-01 23:00] VITALS: BP 138/64; PULSE 73; O2SAT 92
--- NOTE | 2022-11-01 23:05 | ED.HEATRA ---
HPI - Head Injury General Chief complaint: Head Injury Stated complaint: Head inj Time Seen by Provider: 11/01/22 22:18 Source: patient and family Mode of arrival: Ambulatory Limitations: no limitations History of Present Illness HPI Narrative: This is a 77-year-old female anticoagulated on aspirin with history of prior stroke, hypertension, dyslipidemia, chronic urinary incontinence, COPD with complaint of fall on ThursdayOctober 28. Patient states she was stepping over her dog she misjudged and fell striking the right side of her head. She did not lose consciousness. She states since then she is had some persistent vertigo and feelings of off balance and dizziness. Some nausea but no vomiting. She has been able to ambulate. She is had some headache but not increasing. She denies any vision changes. She is had some neck discomfort. She has not had any back discomfort. No chest pain, no shortness of breath. No diarrhea or constipation, no incontinence fecal or urinary. No numbness, tingling or weakness of her extremities. She has had a little bit of persistent symptoms she presents today because she spoke with her neighbor about her persistent vertigo and they recommended she come be evaluated. Patient has history of allergy to dexamethasone and sulfa. No tobacco, occasional alcohol none today. No illicit. She lives with her . Related Data Home Medications Medication Instructions Recorded Confirmed vit C 150 mg-vit E 30 unit-lutein 1 cap PO DAILY 09/16/17 09/04/22 5 [id number] 3 150 mg capsule (Ocuvite) ResMed Airsense 10 CPAP #1 ea 02/09/19 09/04/22 metoprolol tartrate 25 mg tablet 25 mg PO DAILY 10/23/21 09/04/22 Previous Rx's Medication Instructions Recorded albuterol sulfate 90 mcg/actuation 1 puff inhalation Q6H PRN 04/08/21 aerosol inhaler (ProAir HFA) shortness of breath or wheezing #8.5 grams aspirin 81 mg tablet,delayed 81 mg PO DAILY #1 tab 05/14/21 release sertraline 50 mg tablet 50 mg PO BEDTIME #90 tabs 10/17/21 diclofenac sodium 1 % topical gel 2 g topical QID #100 grams 05/22/22 atorvastatin 40 mg tablet 40 mg PO DAILY #90 tabs 08/19/22 oxybutynin chloride 10 mg 10 mg PO BID #180 tabs 09/04/22 tablet,extended release 24 hr ondansetron 4 mg disintegrating 4 mg PO QID PRN nausea and 11/02/22 tablet vomiting #10 tabs Allergies Allergy/AdvReac Type Severity Reaction Status Date / Time dexamethasone [DEXAMETHASONE] Allergy Mild DIZZINESS Verified 09/04/22 11:29 AND DIARRHEA Sulfa (Sulfonamide Allergy Mild ITCHY Verified 09/04/22 11:29 Antibiotics) [SULFA (SULFONAMIDE ANTIBIOTICS)] Review of Systems Review of Systems ROS Unobtainable: All systems reviewed & are unremarkable except as noted in HPI and below Patient History Medical History Abnormal chest x-ray (~2012) Ankle pain Carpal tunnel syndrome (~2008) Chronic back pain (~1994) Colon polyps (~2012) Depression Eczema Fracture Fractures (~2008) GERD (gastroesophageal reflux disease) Headache (~1979) Hearing loss (~2008) Hemorrhoid (~2009) History of urinary incontinence (~2004) Hypertension Internal hemorrhoids Irritable bowel syndrome Left wrist pain Measles Mixed hyperlipidemia Mumps (~1951) Obesity (BMI 30-39.9) Obstructive sleep apnea On postmenopausal hormone replacement therapy Preventative health care Recurrent sinusitis (~1979) Right upper quadrant abdominal pain Rubella (~1958) Shoulder pain (~2008) Transient ischemic attack Urinary bladder incontinence Surgical History History of carpal tunnel repair History of knee replacement History of knee replacement Status post dilation and curettage Family History Brother Age: 78 Heart disease Father Cancer Mother No problems noted. 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 HEAD: Patient has greenish ecchymosis of the right forehead and brow with some slight swelling of the right eyebrow, no raccoon/George sign. NECK: Nontender, painless range of motion, trachea midline Positive for Nexus criteria, there is no mid line tenderness, patient does have some tenderness on the right, distracting injury, altered mental status, neuro deficit, recent EtOH. EYES: PERRLA, EOMI ENT: External inspection normal except as above, trachea is midline, TM's are normal no hemotypanum, Nares are clear, no septal hematoma, no dental or oral injury, airway is normal and with normal occlusion, No bony tenderness RESP: Chest is nontender and has symmetric movement, no ecchymosis, breath sounds are normal no crackles, wheezes or rales CVS: Heart sounds are normal, no murmur noted, No JVD. ABG/GI: Nontender, soft, normal bowel sounds, no distention, no organomegaly, pelvic rock is negative NEURO: Oriented AOx3, neuro is grossly intact, sensation and motor is normal all 4 extremities moving, cranial nerves II through XII are intact, GCS is 15 PSYCH: Normal mood and affect SKIN: Intact, warm and dry, no crepitus and without decubitus BACK: No CVA tenderness, no vertebral tenderness, no step-off's, no crepitus EXT: Atraumatic for ecchymosis of the right elbow. Patient has full range of motion. Nontender over the bone. Hips are nontender, no pedal edema, normal color and temperature, normal range of motion of extremities with normal tendon exam, 2+ pulses in all four extremities Initial Vital Signs Initial Vital Signs: Vital Signs Temperature 97.6 F 11/01/22 21:48 Pulse Rate 67 11/01/22 21:48 Respiratory Rate 16 11/01/22 21:48 Blood Pressure 137/77 11/01/22 21:48 Pulse Oximetry 97 11/01/22 21:48 Oxygen Delivery Method Room Air 11/01/22 21:48 Scores GCS [place] coma scale eye opening: Spontaneous Course Orders Ordered: ED Orders 11/01/22 22:18 CT cervical spine wo con Stat CT head/brain wo con Stat 11/01/22 23:07 CBC Auto Diff [Complete Blood Count AUTO DIFF] Stat CMP [Comprehensive Metabolic Panel] Stat PTT Partial Thromboplastin Regulo Stat Prothrombin Time INR Stat 11/02/22 02:18 CT head/brain wo con Stat Discontinued Medications Acetaminophen (Acetaminophen 325 Mg Tablet) 975 mg PO NOW ONE Stop: 11/01/22 22:19 Last Admin: 11/02/22 01:33 Dose: 975 mg Documented By: Ondansetron HCl (Ondansetron 4 Mg Odt) 4 mg SL NOW ONE Stop: 11/01/22 22:19 Last Admin: 11/01/22 22:23 Dose: 4 mg Documented By: Vital Signs Vital signs: Vital Signs - 8 hr 11/01/22 21:48 11/01/22 22:35 11/01/22 22:35 Temperature 97.6 F Pulse Rate 67 70 Respiratory Rate 16 Blood Pressure 137/77 128/59 L Pulse Oximetry 97 94 Oxygen Delivery Method Room Air 11/01/22 23:00 11/01/22 23:00 11/01/22 23:30 Temperature Pulse Rate 73 Respiratory Rate Blood Pressure 138/64 136/69 Pulse Oximetry 92 Oxygen Delivery Method 11/01/22 23:30 11/02/22 00:00 11/02/22 00:01 Temperature Pulse Rate 72 75 75 Respiratory Rate Blood Pressure Pulse Oximetry 91 92 92 Oxygen Delivery Method 11/02/22 00:01 11/02/22 00:30 11/02/22 00:31 Temperature Pulse Rate 84 83 Respiratory Rate 16 Blood Pressure 165/84 H Pulse Oximetry 91 96 Oxygen Delivery Method 11/02/22 00:31 11/02/22 01:00 11/02/22 01:00 Temperature Pulse Rate 80 Respiratory Rate 24 Blood Pressure 162/79 H 152/71 H Pulse Oximetry 92 Oxygen Delivery Method 11/02/22 01:30 11/02/22 02:00 11/02/22 02:00 Temperature Pulse Rate 78 75 Respiratory Rate 23 Blood Pressure 135/72 Pulse Oximetry 91 91 Oxygen Delivery Method 11/02/22 02:28 11/02/22 02:28 11/02/22 02:30 Temperature Pulse Rate 72 66 Respiratory Rate Blood Pressure 120/60 Pulse Oximetry 93 92 Oxygen Delivery Method 11/02/22 03:00 11/02/22 03:00 11/02/22 03:27 Temperature 97.6 F Pulse Rate 72 68 Respiratory Rate 17 16 Blood Pressure 154/74 H 154/74 H Pulse Oximetry 93 96 Oxygen Delivery Method Room Air MDM - Head Injury Lab Data 11/01/22 23:07 11/01/22 23:07 Labs: Lab Results 11/01/22 11/01/22 11/01/22 Range/Units 23:07 23:07 23:07 WBC 8.9 (4.5-11.0) X10^3/uL RBC 3.90 L (4.0-5.2) X10^6/uL Hgb 10.9 L (12.0-16.0) g/dL Hct 32.5 L (36-46) % MCV 83.3 (80-100) fL MCH 28.0 (26-34) PG MCHC 33.6 (30-36) % RDW 14.4 (11.6-14.8) % Plt Count 294 (150-400) X10^3/uL Neut % (Auto) 61.4 (50-75) % Lymph % (Auto) 26.3 (25-40) % [place] % (Auto) 9.1 (3-14) % Eos % (Auto) 2.7 (2-4) % Baso % (Auto) 0.5 (0-2) % Neut # (Auto) 5500 (7832-0130) /uL Lymph # (Auto) 2300 (4233-5065) /uL [place] # (Auto) 800 (0-900) /uL Eos # (Auto) 200 (0-450) /uL Baso # (Auto) 0 (0-100) /uL PT 13.2 H (10.1-12.7) SECONDS INR 1.2 (0.9-1.3) APTT 24 L (26-36) SECONDS Sodium 133 L (137-145) mmol/L Potassium 4.5 (3.4-5.1) mmol/L Chloride 100 (98-107) mmol/L Carbon Dioxide 29 (22-32) mmol/L BUN 21 H (7-17) mg/dL Creatinine 1.01 (0.52-1.04) mg/dL Estimated GFR 58 L (>60) mL/min BUN/Creatinine Ratio 20.8 (6-22) Glucose 108 (80-110) mg/dL Calcium 8.7 (8.4-10.2) mg/dL Total Bilirubin 0.8 (0.2-1.3) mg/dL AST 35 (14-36) IU/L ALT 25 (<35) IU/L Alkaline Phosphatase 67 (38-126) U/L Total Protein 6.9 (6.3-8.2) g/dL Albumin 3.7 (3.5-5.0) g/dL Globulin 3.2 (1.7-4.1) g/dL Albumin/Globulin Ratio 1.2 (1.0-2.8) Imaging Data CT scan - head: Radiologist's Impression: [address] [address] [address] Scan Report Signed Patient: Michelle Tripathi MR#: [id number] : 1945 Acct:[id number] Age/Sex: 77 / F Date of Service: 11/01/22 Loc: ED Accession Number: [id number] ?? Procedure: CT head/brain wo con Ordering Provider: Irasema Conway D.O. PROCEDURE:? CT HEAD/BRAIN WO CON ? INDICATIONS:? fell hit head, on asa, vertigo, nausea ? TECHNIQUE:? Noncontrast 4.5 mm thick angled axial sections acquired from the foramen magnum to the vertex, with coronal and sagittal reformats.? For radiation dose reduction, the following was used:? automated exposure control, adjustment of mA and/or kV according to patient size.? ? COMPARISON:? [facility], CT, CT HEAD/BRAIN WO CON, 05/13/2021, 13:33. ? FINDINGS:? Image quality:? Excellent.? ? CSF spaces:? Basal cisterns are patent.? No extra-axial fluid collections.? The ventricles are symmetric in size and shape.? ? Brain:? There is a left frontotemporal parietal extradural collection of hyperdensity.? The thickest dimension measures 8 mm in the left frontal temporal lobe.? There is cerebral volume loss for age, with resultant ventricular and sulcal prominence.? There are periventricular and deep white matter chronic small vessel ischemic changes.? There is intracranial internal carotid artery atherosclerosis.? ? Skull and face:? Calvarium and visualized facial bones appear intact, without suspicious lesions.? ? Sinuses:? Visualized sinuses and mastoids are clear.? ? IMPRESSION:? ? Left frontotemporal parietal hyperdensity most consistent with subdural hematoma.? No visualized underlying fracture. ? ? The above findings were discussed with Dr. Irasema Conway on 11/01/2022 at 10:55 p.m..? ? Dictated by: Lucretia Garcia M.D. on 11/01/2022 at 22:52 ? ? Approved by: Lucretia Garcia M.D. on 11/01/2022 at 22:55?? CT - cervical spine: Radiologist's Impression: Michelle Tripathi??77??F??1945 ? Allergy/Adv: dexamethasone, Sulfa (Sulfonamide Antibiotics) (More??) Close Head CT (Signed) Lucretia Garcia - 11/01/[address] (Signed) Lucretia Garcia - 11/01/22 Lumbar Spine X-Ray (Signed) Radha Jose - 09/04/22 Hip X-Ray (Signed) Radha Jose - 09/04/22 Brain MRI (Signed) Stiven Aldrich - 05/14/21 Telemetry Strips 05/13/21 Head/Neck CTA (Signed) Jose Hagen - 05/13/[address] (Signed) Lucas Jose - 05/13/21 Chest X-Ray (Signed) Lucas Jose - 05/13/21 Echocardiogram Ultrasound (Signed) Mily Phipps - 01/17/21 Myocardial Perfusion Scan Nuc Med (Signed) Lara Phippsrigu - 01/04/21 Carotid Doppler Study (Signed) Stiven Aldrich - 11/02/20 Wrist X-Ray (Signed) Lucas Jose - 07/12/20 Mammogram Screening (Signed) Xander Cevallos - 10/22/[address] (Signed) Memo Lopez - 10/27/18 PFT Result 10/14/18 Mammogram Screening (Signed) Matthew Haas - 09/14/18 Telemetry Strips 12/01/17 Chest X-Ray (Signed) Manoj Mooney - 09/16/17 Mammogram Screening (Signed) Freddie Meyer - 08/18/17 Launch?[place] [address] CT Scan Report Signed Patient: Michelle Tripathi MR#: [id number] : 1945 Acct:[id number] Age/Sex: 77 / F Date of Service: 11/01/22 Loc: ED Accession Number: [id number] ?? Procedure: CT cervical spine wo con Ordering Provider: Irasema Conway D.O. PROCEDURE:? CT CERVICAL SPINE WO CON ? INDICATIONS:? fell hit head, on asa, vertigo, nausea ? TECHNIQUE:? Noncontrast 3 mm thick sections acquired from the skull base to the T4 level.? Sagittal and coronal reformats were then constructed.? For radiation dose reduction, the following was used:? automated exposure control, adjustment of mA and/or kV according to patient size.? ? COMPARISON:? None. ? FINDINGS:? Image quality:? Excellent.? ? Bones:? No fractures or dislocations.? Visualized superior ribs are intact.? There is reversal cervical curvature with apex at C5-6.? Multilevel degenerative disc space narrowing is present.? Multilevel anterior osteophytes are present.? ? Soft tissues:? Prevertebral soft tissues are normal in thickness.? No paravertebral hematomas.? No apical pneumothoraces.? ? ? IMPRESSION:? Multilevel degenerative changes of visualized fracture. ? Dictated by: Lucretia Garcia M.D. on 11/01/2022 at 22:56 ? ? Approved by: Lucretia Garcia M.D. on 11/01/2022 at 22:58?? Repeat Head CT: Radiologist's Impression: Stable acute right cerebral convexity subdural hematoma with stable mild midline shift. No new abnormality maximum thickness is 8-9 mm not significantly changed. Hemorrhage present from frontal region through temporoparietal and occipital regions. Mild bowing of midline structures from right to left unchanged with no herniation. MDM Narrative Medical decision making narrative: This is a 77-year-old female anticoagulated on aspirin who presents with a ground level fall last Thursday with persistent vertigo symptoms and nausea although she states they are mildly improving over time. Patient does have obvious ecchymosis over her right forehead and brow it is greenish and appears older. Patient had head CT ordered secondary to age, anticoagulation and C-spine was included as she is had some neck pain although it is more on the right and not midline she is higher risk secondary to her age. C-spine CT is negative, head CT shows 8 mm right subdural without shift. Patient's neuro exam overall is reassuring. GCS of 15. Patient received and a Zofran sublingual and states she feels much more comfortable at this time. Radiology, Dr. Garcia, called CT report patient has not 8 mm subdural without midline shift on imaging on the left. Acute contrecoup. CT C-spine does not show any acute changes. Patient's exam is overall reassuring blood pressure is 138/64. Images were pushed to [facility] for consultation with Neurosurgery. Neurosurgery consultation: Dr. Pleitez reviewed patient's vitals, labs, presentation and recent history as well as imaging. Patient has been ambulating at home without any issues has had some persistent symptoms but not worsening. After discussion at this time based on her imaging would not have intervention recommends repeat [address] scan if patient does not have any worsening changes and feels comfortable with this plan discharge home. Plan to hold aspirin for 7-10 days and follow up with primary care. If there is any increase of size on CT imaging or other concerning factors they asked for recontact for transfer. Spoke with patient and family there agreeable with this plan. Patient has expressed she would like to return home to make pain cakes for Thursday morning and has been ambulating in the department without issue. On recheck reviewed patient's repeat CT findings she continues to feel well she would like to return home and feels comfortable doing so. Reviewed that she is to hold her aspirin for 10 days, she did find Zofran helpful so will give her prescription for this. She is to follow up with primary care. Strict return precautions. Discharge Plan Departure Patient Disposition: Home Clinical Impression: Subdural hematoma Instructions: DI for Subdural Hematoma Activity Restrictions/Additional Instructions: You have a subdural hematoma on the right side of your brain. This appears stable on your repeat head CT. Follow-up with your primary care physician in the next week for recheck. No aspirin or other blood thinners for the next 10 days. You may restart your aspirin on November 11. You can take tylenol up to 1000mg every 6 hours as needed. You can take Zofran 1 tablet every 6 hours as needed for nausea, [facility] [place]. Please return for new or worsening headaches, vision changes, worsening vertigo, lightheadedness or passing out, new numbness, tingling or weakness, persistent vomiting or if you have other new or concerning changes. Prescriptions: New ondansetron 4 mg tablet,disintegrating 4 mg PO QID PRN (Reason: nausea and vomiting) Qty: 10 0RF No Action atorvastatin 40 mg tablet 40 mg PO DAILY Qty: 90 0RF albuterol sulfate [ProAir HFA] 90 mcg/actuation HFA aerosol inhaler 1 puff inhalation Q6H PRN (Reason: shortness of breath or wheezing) Qty: 8.5 1RF diclofenac sodium 1 % gel 2 g topical QID Qty: 100 0RF Rx Instructions: apply small amount to hands vit C-vit C-[id number]-om-3 [Ocuvite] 110-54-2-150 lf-drbn-za-mg capsule 1 cap PO DAILY sertraline 50 mg tablet 50 mg PO BEDTIME Qty: 90 3RF oxybutynin chloride 10 mg tablet extended release 24hr 10 mg PO BID Qty: 180 1RF Rx Instructions: start taking this 10 mg twice a day for a total of 20 mg a day aspirin 81 mg tablet,delayed release (DR/EC) 81 mg PO DAILY Qty: 1 0RF (DME) ResMed Airsense 10 CPAP Qty: 1 Rx Instructions: Pressure: 5-10 cmH2O DME: [employer] metoprolol tartrate 25 mg tablet 25 mg PO DAILY Referrals: Kunal Barrera DO [Primary Care Provider] - Stand Alone Forms: Patient Portal/API
[2022-11-01 23:21] LABS: Add Manual Diff / Slide Review NO; Basophils Absolute Auto 0 /uL (0-100); Basophils Percent Auto 0.5 % (0-2); Eosinophils Absolute Auto 200 /uL (0-450); Eosinophils Percent Auto 2.7 % (2-4); Hematocrit 32.5 % (36-46); Hemoglobin 10.9 g/dL (12.0-16.0); Lymphocytes Absolute Auto 2300 /uL (1100-4500); Lymphocytes Percent Auto 26.3 % (25-40); Mean Corpuscular HGB Conc 33.6 % (30-36); Mean Corpuscular Volume 83.3 fL (80-100); Monocytes Absolute Auto 800 /uL (0-900); Monocytes Percent Auto 9.1 % (3-14); Neutrophils Absolute Auto 5500 /uL (1500-7000); Neutrophils Percent Auto 61.4 % (50-75); Platelet Count 294 X10^3/uL (150-400); Red Cell Distribution Width 14.4 % (11.6-14.8); White Blood Cell Count 8.9 X10^3/uL (4.5-11.0)
[2022-11-01 23:24] LABS: INR 1.2 (0.9-1.3); Prothrombin Time 13.2 SECONDS (10.1-12.7)
[2022-11-01 23:27] LABS: PTT Partial Thromboplastin Tim 24 SECONDS (26-36)
[2022-11-01 23:28] LABS: Alanine Aminotransferase 25 IU/L (<35); Albumin 3.7 g/dL (3.5-5.0); Albumin Globulin Ratio 1.2 (1.0-2.8); Alkaline Phosphatase 67 U/L (38-126); Aspartate Aminotransferase 35 IU/L (14-36); BUN Creatinine Ratio 20.8 (6-22); Bilirubin Total 0.8 mg/dL (0.2-1.3); Blood Urea Nitrogen 21 mg/dL (7-17); Calcium 8.7 mg/dL (8.4-10.2); Carbon Dioxide 29 mmol/L (22-32); Chloride 100 mmol/L (98-107); Estimated Glomerular Filt Rate 58 mL/min (>60); Globulin 3.2 g/dL (1.7-4.1); Glucose 108 mg/dL (80-110); HEMOLYSIS 29 (0-50); Potassium 4.5 mmol/L (3.4-5.1); Sodium 133 mmol/L (137-145); Total Protein 6.9 g/dL (6.3-8.2)
[2022-11-01 23:30] VITALS: BP 136/69; PULSE 72; O2SAT 91
[2022-11-02] VITALS (11 sets, daily range): BP systolic 120–165; BP diastolic 60–84; PULSE 66–84; RESP 16–24; TEMP 36.4; O2SAT 91–96
[2022-11-02] MEDS: ACETAMINOPHEN 325 MG TABLET 975 MG PO (01:33)
--- NOTE | 2022-11-02 02:18 | DI.CT.S_ITS ---
PROCEDURE: CT HEAD/BRAIN WO CON INDICATIONS: repeat CT for SDH TECHNIQUE: Noncontrast 4.5 mm thick angled axial sections acquired from the foramen magnum to the vertex, with coronal and sagittal reformats. For radiation dose reduction, the following was used: automated exposure control, adjustment of mA and/or kV according to patient size. COMPARISON: [facility], CT, CT HEAD/BRAIN WO CON, 11/01/2022, 22:27. FINDINGS: Image quality: Excellent. CSF spaces: Basal cisterns are patent. Unchanged size and appearance of acute right frontotemporoparietal subdural hematoma, measuring 8 mm in maximum thickness. Minimal effacement on the right lateral ventricle with trace midline shift, perhaps 1 mm. Brain: Unchanged acute right subdural hematoma. There is cerebral volume loss for age, with resultant ventricular and sulcal prominence. There are periventricular and deep white matter chronic small vessel ischemic changes. There is intracranial internal carotid artery atherosclerosis. Skull and face: Calvarium and visualized facial bones appear intact, without suspicious lesions. Sinuses: Visualized sinuses and mastoids are clear. IMPRESSION: 1. Unchanged acute right subdural hematoma with 8 mm maximum thickness. Very mild mass effect on the right lateral ventricle and trace midline shift. 2. Age-related volume loss and small vessel ischemic change. Comment: Final report is concordant with preliminary interpretation provided by [facility]. Dictated by: Shawn Hylton M.D. on 11/02/2022 at 8:30 Approved by: Shawn Hylton M.D. on 11/02/2022 at 8:36
== END 2022-11-02 03:28 | disposition home or self-care (01) ==
PROVIDERS: Emergency Provider Emergency Medicine; Family Provider Family Medicine; PCP Family Medicine
DX: S06.5X0A Traumatic subdural hemorrhage without loss of consciousness, initial encounter (principal); R42 Dizziness and giddiness; R11.0 Nausea; Z79.82 Long term (current) use of aspirin; W18.30XA Fall on same level, unspecified, initial encounter
CPT/HCPCS: 36415; 70450; 72125; 80053; 85025; 85610; 85730; 99284

== ENCOUNTER → 2022-11-17 | Outpatient (CLI) | payer MEDICARE, OTHER, SELFPAY ==
[2021-05-15 14:36] VITALS: BMI 34.7
--- NOTE | 2022-11-17 13:15 | DI.CT.S_ITS ---
PROCEDURE: CT HEAD/BRAIN WO CON INDICATIONS: f/u subdural hematoma TECHNIQUE: Noncontrast 4.5 mm thick angled axial sections acquired from the foramen magnum to the vertex, with coronal and sagittal reformats. For radiation dose reduction, the following was used: automated exposure control, adjustment of mA and/or kV according to patient size. COMPARISON: [facility], CT, CT HEAD/BRAIN WO CON, 11/02/2022, 2:23. FINDINGS: Image quality: Excellent. CSF spaces: Basal cisterns are patent. The previously seen extra-axial right frontal fluid collection has decreased in density. The ventricles are symmetric in size and shape. Brain: No intracranial bleeds or masses. There is roughly 7 mm leftward midline shift. There is cerebral volume loss for age, with resultant ventricular and sulcal prominence. There are periventricular and deep white matter chronic small vessel ischemic changes. There is intracranial internal carotid artery atherosclerosis. Skull and face: Calvarium and visualized facial bones appear intact, without suspicious lesions. Sinuses: Visualized sinuses and mastoids are clear. IMPRESSION: Expected evolution of late subacute right extra-axial hematoma. Mild leftward midline shift, as before. Dictated by: Judy Davidson M.D. on 11/17/2022 at 15:18 Approved by: Judy Davidson M.D. on 11/17/2022 at 15:21
== END ==
PROVIDERS: Family Provider Family Medicine; PCP Family Medicine; Referring Provider Family Medicine; Visit Provider Family Medicine
DX: S06.5XAA Traumatic subdural hemorrhage with loss of consciousness status unknown, initial encounter; I65.29 Occlusion and stenosis of unspecified carotid artery; R51.9 Headache, unspecified
CPT/HCPCS: 70450

== ENCOUNTER → 2022-11-29 10:35 | Outpatient (CLI) | payer MEDICARE, OTHER, SELFPAY ==
[2021-05-15 14:36] VITALS: BMI 34.7
[2022-11-29 12:02] LABS: Creatinine Urine Random 95.6 mg/dL
[2022-11-29 12:07] LABS: Microalbumin Urine Random < 0.6 mg/dL (0-1.6)
== END ==
PROVIDERS: Family Provider Family Medicine; PCP Family Medicine; Referring Provider Family Medicine; Visit Provider Family Medicine
DX: E78.2 Mixed hyperlipidemia (principal); I10 Essential (primary) hypertension; R73.9 Hyperglycemia, unspecified
CPT/HCPCS: 82043; 82570

== ENCOUNTER → 2023-01-05 11:12 | Outpatient (CLI) | payer MEDICARE, OTHER, SELFPAY ==
[2021-05-15 14:36] VITALS: BMI 34.7
--- NOTE | 2023-01-05 11:14 | DI.CT.S_ITS ---
PROCEDURE: CT HEAD/BRAIN WO CON INDICATIONS: f/u subdural hematoma TECHNIQUE: Noncontrast 4.5 mm thick angled axial sections acquired from the foramen magnum to the vertex, with coronal and sagittal reformats. For radiation dose reduction, the following was used: automated exposure control, adjustment of mA and/or kV according to patient size. COMPARISON: [facility], CT, CT HEAD/BRAIN WO CON, 11/01/2022, 22:27. [facility], CT, CT HEAD/BRAIN WO CON, 11/02/2022, 2:23. [facility], CT, CT HEAD/BRAIN WO CON, 11/17/2022, 13:31. FINDINGS: Image quality: Excellent. CSF spaces: Basal cisterns are patent. No extra-axial fluid collections. The ventricles are symmetric in size and shape. Brain: No definite residual intracranial hemorrhage can be seen. No intracranial masses. There is cerebral volume loss for age, with resultant ventricular and sulcal prominence. There are periventricular and deep white matter chronic small vessel ischemic changes. There is intracranial internal carotid artery atherosclerosis. Skull and face: Calvarium and visualized facial bones appear intact, without suspicious lesions. Sinuses: Visualized sinuses and mastoids are clear. IMPRESSION: No definite intracranial residual hemorrhage is identified. Dictated by: Jose Hagen M.D. on 01/05/2023 at 11:33 Approved by: Jose Hagen M.D. on 01/05/2023 at 11:35
== END ==
PROVIDERS: Family Provider Family Medicine; PCP Family Medicine; Referring Provider Family Medicine; Visit Provider Family Medicine
DX: R51.9 Headache, unspecified (principal)
CPT/HCPCS: 70450

== ENCOUNTER → 2023-04-28 13:17 | Outpatient (CLI) | payer MEDICARE, OTHER, SELFPAY ==
[2023-02-03 14:58] VITALS: BMI 34.7
--- NOTE | 2023-04-28 13:20 | DI.ECHO.S_ITS ---
[place] [facility]---------+ [facility] +---------+ : : [address] : : : : [id number] : : : : Phone: [phone]+ Echocardiogram Report + + :Name: MELANI SPAIN Study Date: 04/28/2023 Height: 67.5 in: :[facility] ReadingLocation: Weight: 215 lb : : Gender: Female BSA: 2.1 m2 : :: 1945 Age: 78 yrs BP: 133/89 mmHg: :Reason For Study: AORTIC VALVE STENOSIS : :Ordering Physician: GILBERTO, : :ELENA Hernandez Performed By: Breanna Forman : :Referring: ELENA PERDOMO : + + Interpretation Summary The ejection fraction is estimated to be 60-65%. Diastolic parameters suggest probable normal left ventricular diastolic function and normal filling pressures. The right ventricle is normal in size and function. There is mild mitral regurgitation. There is mild aortic stenosis. There is mild aortic regurgitation. There is mild tricuspid regurgitation. The right ventricular systolic pressure is estimated to be at least 30 mmHg based on an estimated right atrial pressure of 3 mm Hg. Compared to the prior study dated 01/17/2021, aortic valve gradient has increased but the degree of stenosis remains mild. Procedure: A two-dimensional transthoracic echocardiogram with color flow and Doppler was performed. The study quality was technically difficult. Comparison is made with the echocardiogram of 01/17/2021. EKG artifact throughout exam. The patient was in sinus rhythm with heart rates between 61- 72 bpm during the exam. Left Ventricle: Proximal septal thickening is noted. The left ventricle is normal in size. The ejection fraction is estimated to be 60-65%. Diastolic parameters suggest probable normal left ventricular diastolic function and normal filling pressures. Right Ventricle: The right ventricle is normal in size and function. Atria: The left atrial size is normal. Right atrial size is normal. There is no Doppler evidence for an interatrial shunt. Mitral Valve: There is moderate to severe mitral annular calcification. There is mild mitral regurgitation. Aortic Valve: The aortic valve is mildly calcified. There is mildly reduced leaflet mobility. There is mild aortic stenosis. The peak aortic velocity is 2.6 m/sec. The aortic valve mean gradient is 16 mmHg. There is mild aortic regurgitation. Tricuspid Valve: The tricuspid valve is normal in structure and function. There is mild tricuspid regurgitation. The right ventricular systolic pressure is estimated to be at least 30 mmHg based on an estimated right atrial pressure of 3 mm Hg. Pulmonic Valve: The pulmonic valve is not well seen, but is grossly normal. There is mild pulmonic regurgitation. Great Vessels: The aortic root is normal size. The dimensions of the ascending aorta are normal. The IVC is of normal diameter and collapses greater than 50% with a sniff. This suggests a low right atrial pressure of 3 mm Hg. Pericardium/ Pleura There is no pericardial effusion. There is no pleural effusion. MMode/2D Measurements & Calculations LVIDd: 4.1 cm LVOT diam: 2.0 cm EPSS: 0.58 cm Ao root diam: 3.4 cm IVSd: 1.1 cm asc Aorta Diam: 3.6 cm LVPWd: 0.99 cm Ao Arch Diam (Prox Trans): 3.0 cm LV chacon. diameter/BSA (cm/m^2): 2.0 LA A2 area: 17.1 cm2 RA long axis: 4.7 cm LA A4 area: 21.5 cm2 RA area: 12.8 cm2 LA length (vol): 5.4 cm RA vol: 29.6 ml LA vol: 58.0 ml RA : 14.1 ml/m2 LA vol index: 27.6 ml/m2 IVC diam: 1.6 cm RVD1 (basal): 3.5 cm RVD2 (mid): 2.7 cm TAPSE: 2.1 cm Doppler Measurements & Calculations Ao V2 max: 260.1 cm/sec LVOT Max Jimbo: 90.1 cm/sec Ao V2 mean: 190.5 cm/sec LV V1 max P.2 mmHg Ao max P.9 mmHg LV V1 VTI: 21.8 cm Ao mean P.4 mmHg MARILU(I,D): 1.1 cm2 Ao V2 VTI: 62.7 cm MARILU(V,D): 1.1 cm2 sev ratio: 0.35 MARILU indexed to BSA (cm^2/m^2): 0.52 MV E max jimbo: 69.2 cm/sec TR max jimbo: 258.5 cm/sec MV A max jimbo: 103.3 cm/sec TR max P.7 mmHg MV E/A: 0.67 PA V2 max: 73.7 cm/sec Med Peak E' Jimbo: 6.0 cm/sec PA V2 mean: 54.6 cm/sec E/E' med: 11.5 PA mean P.3 mmHg Lat Peak E' Jimbo: 7.6 cm/sec PA pr(Accel): 34.5 mmHg E/E' lat: 9.1 E/e' average: 10.3 MV dec time: 0.28 sec SV(LVOT): 68.0 ml Reading Physician:04:12 PM
== END ==
PROVIDERS: Family Provider Family Medicine; PCP Family Medicine; Referring Provider Internal Medicine Cardiovascular Disease; Visit Provider Internal Medicine Cardiovascular Disease
DX: I08.3 Combined rheumatic disorders of mitral, aortic and tricuspid valves (principal)
CPT/HCPCS: 93306

== ENCOUNTER → 2023-05-11 11:12 | Outpatient (CLI) | payer MEDICARE, OTHER, SELFPAY ==
[2023-02-03 14:58] VITALS: BMI 34.7
[2023-05-11 11:43] LABS: Hemoglobin A1C% w Est Avg Glu 5.6 % (4.0-6.0)
[2023-05-11 11:47] LABS: Alanine Aminotransferase 19 IU/L (<35); Albumin 4.4 g/dL (3.5-5.0); Albumin Globulin Ratio 1.2 (1.0-2.8); Alkaline Phosphatase 82 U/L (38-126); Aspartate Aminotransferase 37 IU/L (14-36); BUN Creatinine Ratio 18.1 (6-22); Bilirubin Total 1.2 mg/dL (0.2-1.3); Blood Urea Nitrogen 15 mg/dL (7-17); Calcium 9.7 mg/dL (8.4-10.2); Carbon Dioxide 25 mmol/L (22-32); Chloride 104 mmol/L (98-107); Cholesterol 163 mg/dL (140-199); Estimated Glomerular Filt Rate > 60 mL/min (>60); Globulin 3.7 g/dL (1.7-4.1); Glucose 101 mg/dL (80-110); HDL Cholesterol 51 mg/dL (40-60); HEMOLYSIS < 15 (0-50); LDL Cholesterol Calculated 81 mg/dL (<100); Potassium 4.5 mmol/L (3.4-5.1); Sodium 137 mmol/L (137-145); Total Protein 8.1 g/dL (6.3-8.2); Triglycerides 156 mg/dL (35-150)
== END ==
PROVIDERS: Family Provider Family Medicine; PCP Family Medicine; Referring Provider Family Medicine; Visit Provider Family Medicine
DX: I10 Essential (primary) hypertension (principal); R73.9 Hyperglycemia, unspecified; E78.2 Mixed hyperlipidemia
CPT/HCPCS: 36415; 80053; 80061; 83036

== ENCOUNTER → 2023-05-14 15:55 | Outpatient (CLI) | payer MEDICARE, OTHER, SELFPAY ==
[2023-02-03 14:58] VITALS: BMI 34.7
--- NOTE | 2023-05-14 15:58 | DI.RAD.S_ITS ---
PROCEDURE: XR FOOT RT MIN 3V INDICATIONS: fall 4 days ago, swelling/bruising around ankle TECHNIQUE: 3 views of the foot were acquired. COMPARISON: None. FINDINGS: Bones: Bimalleolar fractures are partially included on this exam. No acute forefoot fracture is seen. Soft tissues: Nonspecific soft tissue edema. IMPRESSION: Distal tibial and fibular fractures are better evaluated on the ankle radiographs performed at the same time. Approved by: Jose Alfredo Montgomery M.D. on 05/14/2023 at 21:29
--- NOTE | 2023-05-14 15:58 | DI.RAD.S_ITS ---
PROCEDURE: XR ANKLE RT MIN 3V INDICATIONS: fall 4 days ago, swelling/bruising around ankle TECHNIQUE: 3 views of the ankle were acquired. COMPARISON: None. FINDINGS: Bones: Mildly displaced oblique fracture of the distal fibula. Transverse fracture of the medial malleolus is also seen with mild displacement. There is mild lateral subluxation of the talar dome relative to the distal tibia. Soft tissues: Soft tissue edema is seen surrounding the ankle. IMPRESSION: Mildly displaced bimalleolar fractures. Mild lateral tibiotalar subluxation. Approved by: Jose Alfredo Montgomery M.D. on 05/14/2023 at 21:30
== END ==
PROVIDERS: Family Provider Family Medicine; PCP Family Medicine; Referring Provider Physician Assistant; Visit Provider Physician Assistant
DX: S82.841A Displaced bimalleolar fracture of right lower leg, initial encounter for closed fracture (principal); W19.XXXA Unspecified fall, initial encounter
CPT/HCPCS: 73610; 73630

== ENCOUNTER 2023-10-22 14:30 | Outpatient (RCR) | payer MEDICARE, OTHER, SELFPAY ==
[2023-02-03 14:58] VITALS: BMI 34.7
--- NOTE | 2023-10-12 17:46 | PT.OIE ---
Current Diagnoses Other chronic pain (10/12/23) Sacrococcygeal disorders, not elsewhere classified (10/12/23) Sciatica, unspecified side (10/12/23) Muscle weakness (generalized) (10/12/23) Difficulty in walking, not elsewhere classified (10/12/23) Other abnormalities of gait and mobility (10/12/23) Past Medical History (Last Updated 09/02/23 @ 11:40 by CONNOR Guan) Abnormal chest x-ray (~2012) Anemia Ankle pain Carpal tunnel syndrome (~2008) Chronic back pain (~1994) Chronic left SI joint pain Colon polyps (~2012) Depression Eczema Epistaxis Fracture Fractures (~2008) GERD (gastroesophageal reflux disease) Headache (~1979) Headache Hearing loss (~2008) Hemorrhoid (~2009) History of urinary incontinence (~2004) Hypertension Internal hemorrhoids Irritable bowel syndrome Left wrist pain Measles Mixed hyperlipidemia Mumps (~1951) Obesity (BMI 30-39.9) Obstructive sleep apnea On postmenopausal hormone replacement therapy Otalgia, left ear Peripheral neuropathy Preventative health care Recurrent sinusitis (~1979) Right upper quadrant abdominal pain Rubella (~1958) Shoulder pain (~2008) Subdural hematoma Transient ischemic attack Urinary bladder incontinence Past Surgical History (Last Reviewed 09/02/23 @ 11:37 by CONNOR Guan) History of carpal tunnel repair History of knee replacement History of knee replacement Status post dilation and curettage Visit Care Team Role Provider Type Kunal Barrera DO Family Provider Physician Primary Care Provider Specialty: [facility] Address: [address] [place] [address], [id number] Email: [email or web address] Attending Provider Advanced Computer Project Manager Referring Provider Specialty: [facility] Address: [address] [place] [address], [id number] Email: [email or web address] Initial Evaluation PT-OP-A Visit Information Start: 10/08/23 13:20 Freq: Status: Active Protocol: Document 10/12/23 14:34 [facility] (Rec: 10/12/23 17:45 [facility] [id number]) Out-Patient Physical Therapy Visit Information Visit Information Visit Type Initial Evaluation Visit Note 04/15 Visit Start Time 14:33 Visit Stop Time 15:18 Visit Number 1 Number of MECHANICAL PRODUCT DESIGN ENGINEER Visits 0 PT-OP-B Current Condition Start: 10/08/23 13:20 Freq: Status: Active Protocol: Document 10/12/23 14:34 [facility] (Rec: 10/12/23 17:45 [facility] [id number]) Current Condition History of Current Condition Onset Date early w/worsening of 4-5 years and even more this year Current Complaints back pain to foot pain History of Current Condition Pt reports bottom of foot is on fire and travels up back of legs and to back. She sometimes feels like if she doesn't sit down, she is going to fall. She cannot go to [facility] anymore as she can't walk to the car. She doens't go to the grocery store anymore. She uses ice and tylenol daily. She doesn't know when it is going to happen until foot goes numb and hot. She reports back pain that can sometimes starts first and if she can get ice on it, she doesn't have as much pain as normal. This has been getting worse and worse. This has been going on for years. 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 She broke her ankle earlier this year coming out from getting bloodwork. Pt did have surgery and feels it when its cold, but overall well healed. She fell and hit the bed frame w/L elbow. She was using walker and hit a rug and went fwd and turned around and hit elbow. Has not seen doctor but can pronate/supinate w/o pain and can flex/ext elbow almost full range w/some pain. Does hurt ot use it. Pt reports last year fell and had a subdural hematoma and wonders if that is what is making her dizzy and affecting her balance. Pt used to have massages and chiro and those helped. This was back when she was working (retired in 2008). hx of B TKAs, dizziness, falls. Was able to walk a couple blocks a few months ago but can't even do that anymore. Has not been able to do much cleaning. Has B TKA in 2003/2004 and feels like R knee and hip want to go out on her Recently and that scares her. Pt reports since she had a mini stroke, she has extra breaths and gets more SOB and has choked some. Mini stroke in 2021 Prior Treatments and Tests xray: IMPRESSION: 1. 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 2. Moderate to severe levoscoliosis. 3. Grade 1 anterolisthesis of L5 on S1. R hip xray: IMPRESSION: Mild degenerative joint disease. Treatment Goals Patient/Caregiver Goals be able to clean her house, be able to go for walks PT-OP-C Subjective Start: 10/08/23 13:20 Freq: Status: Active Protocol: Document 10/12/23 14:34 [facility] (Rec: 10/12/23 17:45 [facility] [id number]) Patient Questionnaires Oswestry Low Back Index Oswestry Score 20/50 OP-PT Pain Assessment Location LB/legs Pain Location Details B foot to post legs & buttocks (also LBP around LS region) Description Burning,Sharp Description- Other numbness Frequency Frequent Pain Aggravating Factors Standing,Walking Pain Alleviating Factors Cold,Inactivity PT-OP-D Balance Start: 10/08/23 13:20 Freq: Status: Active Protocol: Document 10/12/23 14:34 [facility] (Rec: 10/12/23 17:45 [facility] [id number]) Balance Tests Single Limb Standing Single Limb- Right unable Single Limb- Left 1 sec if uses UE to start to get balance PT-OP-E Functional Tests Start: 10/12/23 17:45 Freq: Status: Active Protocol: Document 10/12/23 14:34 [facility] (Rec: 10/12/23 17:46 [facility] [id number]) Functional Tests 2 Minute Walk Test Distance 195ft Device Used SPC Comments significant pain in B feet and LEs by 1.5min PT-OP-G Mobility & Gait Start: 10/08/23 13:20 Freq: Status: Active Protocol: Document 10/12/23 14:34 [facility] (Rec: 10/12/23 17:45 [facility] [id number]) OP Mobility Evaluation Bed Mobility Supine to and from Sit SOB w/bed mobility Transfers Sit to Stand w/UEs and inc time; dec tolerance to standing for testing and required mult seated rest breaks OP Gait Assessment Comments Gait Comments dec R stance time; uses SPC, R pelvic shear w/RLE WB, slow gait, dec foot clearance PT-OP-J Posture/Palpation/Skin Start: 10/08/23 13:20 Freq: Status: Active Protocol: Document 10/12/23 14:34 [facility] ([facility]12/23 17[facility]45 [id number] Posture Evaluation Comments Posture Comments L pelvic shear, RLE turned out , R trunk rot, SB L slightly ; knees slightly bent in standing PT-OP-K Range of Motion Start: 10/08/23 13:20 Freq: Status: Active Protocol: Document 10/12/23 14:34 [facility] (Rec: 10/12/23 17:45 [id number] Lumbar Spine Range of Motion Lumbar Spine Active Percentage Flexion 70 Extension 20 Rotation Left 10 Rotation Right 25 Lateral Flexion Left 40 Lateral Flexion Right 20 Comments pain down R post leg w/flex; pain R hip w/SB R & rot L pain R buttocks PT-OP-L Special Tests Start: 10/08/23 13:20 Freq: Status: Active Protocol: Document 10/12/23 14:34 [facility] (Rec: 10/12/23 17:45 [place] [id number]) Special Tests Lumbar Spine Special Tests Slump Test Results positive B PT-OP-M Strength Start: 10/08/23 13:20 Freq: Status: Active Protocol: Document 10/12/23 14:34 [facility] (Rec: 10/12/23 17:45 [id number] Hip Strength Hip Manual Muscle Testing Right Flexion (L2) 3+ Fair+ Abduction 3- Fair- External Rotation 3+ Fair+ Internal Rotation 4- Good- Comments B absent achilles reflex; L patellar reflex 2+; R 3+ Left Flexion (L2) 3+ Fair+ Abduction 3 Fair External Rotation 3 Fair Internal Rotation 3+ Fair+ Knee Strength Knee Manual Muscle Testing Right Flexion (S2) 4- Good- Extension (L3) 4- Good- Left Flexion (S2) 5 Normal Extension (L3) 5 Normal Ankle/Foot Strength Ankle and Foot Manual Muscle Testing Right Dorsiflexion (L4) 4+ Good+ Plantarflexion (S1) 5 Normal Left Dorsiflexion (L4) 4+ Good+ Plantarflexion (S1) 5 Normal Comments seated PF testing PT-OP-Q Treatments Start: 10/08/23 13:20 Freq: Status: Active Protocol: Document 10/12/23 14:34 [facility] (Rec: 10/12/23 17:45 [facility] [id number]) Self-Care/Home Management Treatment Education Other Education 8 min: edu that choking is a large concern and to cont to discuss w/doctor and consider ASSISTANT ASSOCIATE FULL PROFESSOR and pt educated on what ASSISTANT ASSOCIATE FULL PROFESSOR work on including swallowing; edu to pt to discuss w/doctor re: fall espeically if L elbow pain does not cont to improve PT-OP-T Assessment and Plan Start: 10/08/23 13:20 Freq: Status: Active Protocol: Document 10/12/23 14:34 [facility] (Rec: 10/12/23 17:45 [facility] [id number]) Physical Therapy Assessment Rehab Potential Rehabilitation Potential Good Evaluation Complexity Number of Personal Factors/Comorbidities 3 or More Number of Body Systems Impaired 4 or More Clinical Presentation at Evaluation Unstable Impairments Impairments Activity Tolerance,Balance, Functional Activities, Functional Mobility,Gait,Pain, Posture,ROM,Soft Tissue Mobility,Strength,Transfers Goals ELIZABETH Impairment 20/50 Short Term Goal (STG) Pt will improve ELIZABETH score to no greater than 15/50 to show improved functional ability. STG Duration 11/07 Seafood Team Member Goal (LTG) Pt will improve ELIZABETH score to no greater than 8/50 to show improved functional ability. LTG Duration 01/03 strength Short Term Goal (STG) Pt will be indep w/HEP STG Duration 11/07 [facility] Goal (LTG) Pt will score at least 4/5 on all B hip MMT to show improved strength and stability in order to allow increased time in standing and w/activity. LTG Duration 01/03 walk Impairment 2 min walk 195ft w/significant pain in BLEs and feet Short Term Goal (STG) Pt will be able to complete 2 min walk w/o inc pain and improve distance to at least 250ft to allow for pt to walk more functional distances w/ SPC. STG Duration 11/15 Seafood Team Member Goal (LTG) Pt will be able to complete 6 min walk w/o inc pain greater than 2/10 and be able to ambulate at least 700ft w/SPC LTG Duration 01/03 Assessment Summary Assessment Pt presents w/significant pain in BLEs that starts in her feet and increases up post calf and thigh to buttocks, which was reported during activity on R>L today but pt reports is worse on L at home. pt had B positive neural tension testing w/Slump sit and had significant LE weakness R>L w/significantly dec balance with complete inability to SLS on R w/o outside support. She has dec stance tiem on RLE and significantly dec standing tolerance, requiring a seated rest break w/each testing activity.S he would benefit from skilled PT in order to dec pain and improve function . Physical Therapy Plan Frequency and Duration Frequency of Treatment 2x/Week Duration of treatment (weeks) 12 Plan of Care Start Date 10/12/23 Plan of Care End Date 01/04/24 Therapeutic Interventions Therapeutic Interventions Balance Training,Gait Training ,Home Exercise Program,Joint Mobilizations,Manual Therapy, Neuromuscular Re-education, Patient/Caregiver Education, Self-Care/Home Management,Soft Tissue Mobilization,Taping, Therapeutic Activities, Therapeutic Exercises Modalities Cold Pack/Ice Massage,Electric Stimulation,Hot Packs, Traction- Mechanical, Ultrasound Next Visit Focus/Plan Next Note Type Treatment Note Next Visit Plan supine stretches/core exercises for HEP, also sit to stands and seated stretch for LEs, manual to pelvis and hip to improve mobility and dec pain; manual along sciatic n path
--- NOTE | 2023-10-12 17:46 | PT.OPPOC ---
Physical, Occupational & Speech Therapy At [facility] Current Diagnoses Other chronic pain (10/12/23) Sacrococcygeal disorders, not elsewhere classified (10/12/23) Sciatica, unspecified side (10/12/23) Muscle weakness (generalized) (10/12/23) Difficulty in walking, not elsewhere classified (10/12/23) Other abnormalities of gait and mobility (10/12/23) Visit Care Team Role Provider Type Kunal Barrera DO Family Provider Physician Primary Care Provider Specialty: [facility] Address: [address] [place] [address], [facility] Email: [email or web address] CONNOR Guan Attending Provider Advanced Specialist Wound Care Referring Provider Specialty: [facility] Address: [address] [place] [address], [facility] Email: [email or web address] Plan Of Care PT-OP-T Assessment and Plan Start: 10/08/23 13:20 Freq: Status: Active Protocol: Document 10/12/23 14:34 [facility] (Rec: 10/12/23 17:45 [facility] [id number]) Physical Therapy Assessment Rehab Potential Rehabilitation Potential Good Evaluation Complexity Number of Personal Factors/Comorbidities 3 or More Number of Body Systems Impaired 4 or More Clinical Presentation at Evaluation Unstable Impairments Impairments Activity Tolerance,Balance, Functional Activities, Functional Mobility,Gait,Pain, Posture,ROM,Soft Tissue Mobility,Strength,Transfers Goals ELIZABETH Impairment 20/50 Short Term Goal (STG) Pt will improve ELIZABETH score to no greater than 15/50 to show improved functional ability. STG Duration 11/07 [facility] Goal (LTG) Pt will improve ELIZABETH score to no greater than 8/50 to show improved functional ability. LTG Duration 01/03 strength Short Term Goal (STG) Pt will be indep w/HEP STG Duration 11/07 [employer] Head Goal (LTG) Pt will score at least 4/5 on all B hip MMT to show improved strength and stability in order to allow increased time in standing and w/activity. LTG Duration 01/03 walk Impairment 2 min walk 195ft w/significant pain in BLEs and feet Short Term Goal (STG) Pt will be able to complete 2 min walk w/o inc pain and improve distance to at least 250ft to allow for pt to walk more functional distances w/ SPC. STG Duration 11/15 [facility] Goal (LTG) Pt will be able to complete 6 min walk w/o inc pain greater than 2/10 and be able to ambulate at least 700ft w/SPC LTG Duration 01/03 Assessment Summary Assessment Pt presents w/significant pain in BLEs that starts in her feet and increases up post calf and thigh to buttocks, which was reported during activity on R>L today but pt reports is worse on L at home. pt had B positive neural tension testing w/Slump sit and had significant LE weakness R>L w/significantly dec balance with complete inability to SLS on R w/o outside support. She has dec stance tiem on RLE and significantly dec standing tolerance, requiring a seated rest break w/each testing activity.S he would benefit from skilled PT in order to dec pain and improve function . Physical Therapy Plan Frequency and Duration Frequency of Treatment 2x/Week Duration of treatment (weeks) 12 Plan of Care Start Date 10/12/23 Plan of Care End Date 01/04/24 Therapeutic Interventions Therapeutic Interventions Balance Training,Gait Training ,Home Exercise Program,Joint Mobilizations,Manual Therapy, Neuromuscular Re-education, Patient/Caregiver Education, Self-Care/Home Management,Soft Tissue Mobilization,Taping, Therapeutic Activities, Therapeutic Exercises Modalities Cold Pack/Ice Massage,Electric Stimulation,Hot Packs, Traction- Mechanical, Ultrasound Next Visit Focus/Plan Next Note Type Treatment Note Next Visit Plan supine stretches/core exercises for HEP, also sit to stands and seated stretch for LEs, manual to pelvis and hip to improve mobility and dec pain; manual along sciatic n path Plan of Care Dates Plan of Care Start Date 10/12/23 Plan of Care End Date 01/04/24 Electronically Signed by: Dede Martinez, PT 10/12/23 4037 If you are in agreement with this Plan of Care, please return a signed and dated copy. I have reviewed this Plan of Care and certify that the skilled therapy services above are required to meet the patient?s needs. Physician Signature Date Printed Name and Credentials Clinical Instructor Signature Printed Name and Credentials
--- NOTE | 2023-10-15 17:31 | PT.OTN ---
Current Diagnoses Other chronic pain (10/15/23) Sacrococcygeal disorders, not elsewhere classified (10/15/23) Sciatica, unspecified side (10/15/23) Muscle weakness (generalized) (10/15/23) Difficulty in walking, not elsewhere classified (10/15/23) Other abnormalities of gait and mobility (10/15/23) Physical Therapy Treatment Note PT-OP-A Visit Information Start: 10/08/23 13:20 Freq: Status: Active Protocol: Document 10/15/23 14:36 [facility] (Rec: 10/15/23 17:30 [facility] [id number]) Out-Patient Physical Therapy Visit Information Visit Information Visit Type Treatment Note Visit Note 05/16 Visit Start Time 14:37 Visit Stop Time 15:17 Visit Number 2 Number of TEST BAKER Visits 0 PT-OP-B Current Condition Start: 10/08/23 13:20 Freq: Status: Active Protocol: Document 10/12/23 14:34 [facility] (Rec: 10/12/23 17:45 [facility] [id number]) Current Condition History of Current Condition Onset Date early w/worsening of 4-5 years and even more this year Current Complaints back pain to foot pain History of Current Condition Pt reports bottom of foot is on fire and travels up back of legs and to back. She sometimes feels like if she doesn't sit down, she is going to fall. She cannot go to [employer] anymore as she can't walk to the car. She doens't go to the grocery store anymore. She uses ice and tylenol daily. She doesn't know when it is going to happen until foot goes numb and hot. She reports back pain that can sometimes starts first and if she can get ice on it, she doesn't have as much pain as normal. This has been getting worse and worse. This has been going on for years. 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 She broke her ankle earlier this year coming out from getting bloodwork. Pt did have surgery and feels it when its cold, but overall well healed. She fell and hit the bed frame w/L elbow. She was using walker and hit a rug and went fwd and turned around and hit elbow. Has not seen doctor but can pronate/supinate w/o pain and can flex/ext elbow almost full range w/some pain. Does hurt ot use it. Pt reports last year fell and had a subdural hematoma and wonders if that is what is making her dizzy and affecting her balance. Pt used to have massages and chiro and those helped. This was back when she was working (retired in 2008). hx of B TKAs, dizziness, falls. Was able to walk a couple blocks a few months ago but can't even do that anymore. Has not been able to do much cleaning. Has B TKA in and feels like R knee and hip want to go out on her Recently and that scares her. Pt reports since she had a mini stroke, she has extra breaths and gets more SOB and has choked some. Mini stroke in 2021 Prior Treatments and Tests xray: IMPRESSION: 1. 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 2. Moderate to severe levoscoliosis. 3. Grade 1 anterolisthesis of L5 on S1. R hip xray: IMPRESSION: Mild degenerative joint disease. Treatment Goals Patient/Caregiver Goals be able to clean her house, be able to go for walks PT-OP-C Subjective Start: 10/08/23 13:20 Freq: Status: Active Protocol: Document 10/15/23 14:36 [facility] (Rec: 10/15/23 17:30 [id number]-PT Subjective Patient Comments Patient Comments pt reports has felt a little woozy all day and BP was high yesterday PT-OP-D Balance Start: 10/08/23 13:20 Freq: Status: Active Protocol: Document 10/12/23 14:34 [facility] (Rec: 10/12/23 17:45 [facility] [id number]) Balance Tests Single Limb Standing Single Limb- Right unable Single Limb- Left 1 sec if uses UE to start to get balance PT-OP-E Functional Tests Start: 10/12/23 17:45 Freq: Status: Active Protocol: Document 10/12/23 14:34 [facility] (Rec: 10/12/23 17:46 [id number] Functional Tests 2 Minute Walk Test Distance 195ft Device Used SPC Comments significant pain in B feet and LEs by 1.5min PT-OP-G Mobility & Gait Start: 10/08/23 13:20 Freq: Status: Active Protocol: Document 10/12/23 14:34 [facility] (Rec: 10/12/23 17:45 [facility] [id number]) OP Mobility Evaluation Bed Mobility Supine to and from Sit SOB w/bed mobility Transfers Sit to Stand w/UEs and inc time; dec tolerance to standing for testing and required mult seated rest breaks OP Gait Assessment Comments Gait Comments dec R stance time; uses SPC, R pelvic shear w/RLE WB, slow gait, dec foot clearance PT-OP-J Posture/Palpation/Skin Start: 10/08/23 13:20 Freq: Status: Active Protocol: Document 10/12/23 14:34 [facility] (Rec: 10/12/23 17:45 [facility] [id number]) Posture Evaluation Comments Posture Comments L pelvic shear, RLE turned out , R trunk rot, SB L slightly ; knees slightly bent in standing PT-OP-K Range of Motion Start: 10/08/23 13:20 Freq: Status: Active Protocol: Document 10/12/23 14:34 [facility] (Rec: 10/12/23 17:45 [facility] [id number]) Lumbar Spine Range of Motion Lumbar Spine Active Percentage Flexion 70 Extension 20 Rotation Left 10 Rotation Right 25 Lateral Flexion Left 40 Lateral Flexion Right 20 Comments pain down R post leg w/flex; pain R hip w/SB R & rot L pain R buttocks PT-OP-L Special Tests Start: 10/08/23 13:20 Freq: Status: Active Protocol: Document 10/12/23 14:34 [facility] (Rec: 10/12/23 17:45 [facility] [id number]) Special Tests Lumbar Spine Special Tests Slump Test Results positive B PT-OP-M Strength Start: 10/08/23 13:20 Freq: Status: Active Protocol: Document 10/12/23 14:34 [facility] (Rec: 10/12/23 17:45 [facility] [id number]) Hip Strength Hip Manual Muscle Testing Right Flexion (L2) 3+ Fair+ Abduction 3- Fair- External Rotation 3+ Fair+ Internal Rotation 4- Good- Comments B absent achilles reflex; L patellar reflex 2+; R 3+ Left Flexion (L2) 3+ Fair+ Abduction 3 Fair External Rotation 3 Fair Internal Rotation 3+ Fair+ Knee Strength Knee Manual Muscle Testing Right Flexion (S2) 4- Good- Extension (L3) 4- Good- Left Flexion (S2) 5 Normal Extension (L3) 5 Normal Ankle/Foot Strength Ankle and Foot Manual Muscle Testing Right Dorsiflexion (L4) 4+ Good+ Plantarflexion (S1) 5 Normal Left Dorsiflexion (L4) 4+ Good+ Plantarflexion (S1) 5 Normal Comments seated PF testing PT-OP-Q Treatments Start: 10/08/23 13:20 Freq: Status: Active Protocol: Document 10/15/23 14:36 [facility] (Rec: 10/15/23 17:30 [facility] [id number]) Therapeutic Exercises Supine Exercises hip rotation Supine Exercise Name SL ER w/core engagement Side bilateral Equipment Used L2 Reps/Minutes 15 ea Comments cues at back to not rot LTR Side bilateral Reps/Minutes 10 ea stretches Supine Exercise Name cross body piriformis Side bilateral Reps/Minutes 30 sec sciatic n glide Side bilateral Reps/Minutes 10 Comments comfortable range w/cues for breath pelvic tilt Reps/Minutes 10 Manual Therapy Treatment Consent Patient gave verbal consent for manual Yes treatment Soft Tissue Mobilization lower leg Body Location L peroneal Mobilization Type Rolling Intensity/Depth Superficial Body Position Hooklying thigh Body Location L ITB Mobilization Type Rolling Intensity/Depth Superficial Body Position Hooklying glutes Body Location L piriformis, glute med, glute max Mobilization Type Rolling Intensity/Depth Moderate Body Position Hooklying Self-Care/Home Management Treatment Activities Self-Care/Home Management Activities BP at start 123/83; HR 84; 96% edu to contact doctor if cont to feel woozy x5 min total PT-OP-T Assessment and Plan Start: 10/08/23 13:20 Freq: Status: Active Protocol: Document 10/15/23 14:36 [facility] (Rec: 10/15/23 17:30 [facility] [id number]) Physical Therapy Assessment Goals ELIZABETH Impairment 20/50 Short Term Goal (STG) Pt will improve ELIZABETH score to no greater than 15/50 to show improved functional ability. STG Duration 11/07 Spring Fitter Goal (LTG) Pt will improve ELIZABETH score to no greater than 8/50 to show improved functional ability. LTG Duration 01/03 strength Short Term Goal (STG) Pt will be indep w/HEP STG Duration 11/07 Spring Fitter Goal (LTG) Pt will score at least 4/5 on all B hip MMT to show improved strength and stability in order to allow increased time in standing and w/activity. LTG Duration 01/03 walk Impairment 2 min walk 195ft w/significant pain in BLEs and feet Short Term Goal (STG) Pt will be able to complete 2 min walk w/o inc pain and improve distance to at least 250ft to allow for pt to walk more functional distances w/ SPC. STG Duration 11/15 Intermediate Goal (LTG) Pt will be able to complete 6 min walk w/o inc pain greater than 2/10 and be able to ambulate at least 700ft w/SPC LTG Duration 01/03 Assessment Summary Assessment Pt did well without inc pain w /exercsies today w/cues given to assist in appropriate form. Tolerated only superficial pressure mostly w/STM d/t tenderness especially at ITB Physical Therapy Plan Next Visit Focus/Plan Next Note Type Treatment Note Next Visit Plan review HEP; manual to hip and pelvis to improv mobility and dec pain; treat along sciatic n path
--- NOTE | 2023-10-19 16:27 | PT.OTN ---
Current Diagnoses Other chronic pain (10/19/23) Sacrococcygeal disorders, not elsewhere classified (10/19/23) Sciatica, unspecified side (10/19/23) Muscle weakness (generalized) (10/19/23) Difficulty in walking, not elsewhere classified (10/19/23) Other abnormalities of gait and mobility (10/19/23) Physical Therapy Treatment Note PT-OP-A Visit Information Start: 10/08/23 13:20 Freq: Status: Active Protocol: Document 10/19/23 14:37 [facility] (Rec: 10/19/23 16:27 [facility] [id number]) Out-Patient Physical Therapy Visit Information Visit Information Visit Type Treatment Note Visit Note 06/13 Visit Start Time 14:37 Visit Stop Time 15:20 Visit Number 3 Number of SENIOR PROJECT ARCHITECT Visits 1 PT-OP-B Current Condition Start: 10/08/23 13:20 Freq: Status: Active Protocol: Document 10/12/23 14:34 [facility] (Rec: 10/12/23 17:45 [facility] [id number]) Current Condition History of Current Condition Onset Date early w/worsening of 4-5 years and even more this year Current Complaints back pain to foot pain History of Current Condition Pt reports bottom of foot is on fire and travels up back of legs and to back. She sometimes feels like if she doesn't sit down, she is going to fall. She cannot go to [employer] anymore as she can't walk to the car. She doens't go to the grocery store anymore. She uses ice and tylenol daily. She doesn't know when it is going to happen until foot goes numb and hot. She reports back pain that can sometimes starts first and if she can get ice on it, she doesn't have as much pain as normal. This has been getting worse and worse. This has been going on for years. 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 She broke her ankle earlier this year coming out from getting bloodwork. Pt did have surgery and feels it when its cold, but overall well healed. She fell and hit the bed frame w/L elbow. She was using walker and hit a rug and went fwd and turned around and hit elbow. Has not seen doctor but can pronate/supinate w/o pain and can flex/ext elbow almost full range w/some pain. Does hurt ot use it. Pt reports last year fell and had a subdural hematoma and wonders if that is what is making her dizzy and affecting her balance. Pt used to have massages and chiro and those helped. This was back when she was working (retired in 2008). hx of B TKAs, dizziness, falls. Was able to walk a couple blocks a few months ago but can't even do that anymore. Has not been able to do much cleaning. Has B TKA in and feels like R knee and hip want to go out on her Recently and that scares her. Pt reports since she had a mini stroke, she has extra breaths and gets more SOB and has choked some. Mini stroke in 2021 Prior Treatments and Tests xray: IMPRESSION: 1. 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 2. Moderate to severe levoscoliosis. 3. Grade 1 anterolisthesis of L5 on S1. R hip xray: IMPRESSION: Mild degenerative joint disease. Treatment Goals Patient/Caregiver Goals be able to clean her house, be able to go for walks PT-OP-C Subjective Start: 10/08/23 13:20 Freq: Status: Active Protocol: Document 10/19/23 14:37 [facility] (Rec: 10/19/23 16:27 [facility] [id number]) OP-PT Subjective Patient Comments Patient Comments Patient reports feeling dizzy today, even when seated. BP 146/91 HR 106. Patient reports her chest feels tight when she takes a deep breath. 128/ 82 HR 106 standing post sit to stand PT-OP-D Balance Start: 10/08/23 13:20 Freq: Status: Active Protocol: Document 10/12/23 14:34 [facility] (Rec: 10/12/23 17:45 [facility] [id number]) Balance Tests Single Limb Standing Single Limb- Right unable Single Limb- Left 1 sec if uses UE to start to get balance PT-OP-E Functional Tests Start: 10/12/23 17:45 Freq: Status: Active Protocol: Document 10/12/23 14:34 [facility] (Rec: 10/12/23 17:46 [facility] [id number]) Functional Tests 2 Minute Walk Test Distance 195ft Device Used SPC Comments significant pain in B feet and LEs by 1.5min PT-OP-G Mobility & Gait Start: 10/08/23 13:20 Freq: Status: Active Protocol: Document 10/12/23 14:34 [facility] (Rec: 10/12/23 17:45 [place] [id number]) OP Mobility Evaluation Bed Mobility Supine to and from Sit SOB w/bed mobility Transfers Sit to Stand w/UEs and inc time; dec tolerance to standing for testing and required mult seated rest breaks OP Gait Assessment Comments Gait Comments dec R stance time; uses SPC, R pelvic shear w/RLE WB, slow gait, dec foot clearance PT-OP-J Posture/Palpation/Skin Start: 10/08/23 13:20 Freq: Status: Active Protocol: Document 10/12/23 14:34 [facility] (Rec: 10/12/23 17:45 [place] [id number]) Posture Evaluation Comments Posture Comments L pelvic shear, RLE turned out , R trunk rot, SB L slightly ; knees slightly bent in standing PT-OP-K Range of Motion Start: 10/08/23 13:20 Freq: Status: Active Protocol: Document 10/12/23 14:34 [facility] (Rec: 10/12/23 17:45 [place] [id number]) Lumbar Spine Range of Motion Lumbar Spine Active Percentage Flexion 70 Extension 20 Rotation Left 10 Rotation Right 25 Lateral Flexion Left 40 Lateral Flexion Right 20 Comments pain down R post leg w/flex; pain R hip w/SB R & rot L pain R buttocks PT-OP-L Special Tests Start: 10/08/23 13:20 Freq: Status: Active Protocol: Document 10/12/23 14:34 [facility] (Rec: 10/12/23 17:45 [place] [id number]) Special Tests Lumbar Spine Special Tests Slump Test Results positive B PT-OP-M Strength Start: 10/08/23 13:20 Freq: Status: Active Protocol: Document 10/12/23 14:34 [facility] (Rec: 10/12/23 17:45 [id number] Hip Strength Hip Manual Muscle Testing Right Flexion (L2) 3+ Fair+ Abduction 3- Fair- External Rotation 3+ Fair+ Internal Rotation 4- Good- Comments B absent achilles reflex; L patellar reflex 2+; R 3+ Left Flexion (L2) 3+ Fair+ Abduction 3 Fair External Rotation 3 Fair Internal Rotation 3+ Fair+ Knee Strength Knee Manual Muscle Testing Right Flexion (S2) 4- Good- Extension (L3) 4- Good- Left Flexion (S2) 5 Normal Extension (L3) 5 Normal Ankle/Foot Strength Ankle and Foot Manual Muscle Testing Right Dorsiflexion (L4) 4+ Good+ Plantarflexion (S1) 5 Normal Left Dorsiflexion (L4) 4+ Good+ Plantarflexion (S1) 5 Normal Comments seated PF testing PT-OP-Q Treatments Start: 10/08/23 13:20 Freq: Status: Active Protocol: Document 10/19/23 14:37 [facility] (Rec: 10/19/23 16:27 [facility] [id number]) Therapeutic Exercises Supine Exercises LTR Side bilateral Reps/Minutes 10 ea stretches Supine Exercise Name cross body piriformis and figure $ Side bilateral Reps/Minutes 30 to 60 X 2 each, each LE sciatic n glide Side bilateral Reps/Minutes 10 Comments comfortable range w/cues for breath Therapeutic Activity Therapeutic Activity sit to stand Name from a raised seat height with UE use Reps/Minutes X3 and X 10 Comments Verbal cues for hip hinge, knees flexed just past 90 deg and to sit down slowly Manual Therapy Treatment Soft Tissue Mobilization glutes Body Location Rpiriformis, glute med, glute max, and hamstring Mobilization Type Cross-Friction,Rolling Intensity/Depth Moderate Body Position Hooklying Manual Techniques MET for right AI left PI and pubic shotgun Reps/Duration 6 X6 each PT-OP-T Assessment and Plan Start: 10/08/23 13:20 Freq: Status: Active Protocol: Document 10/19/23 14:37 [facility] (Rec: 10/19/23 16:27 [facility] [id number]) Physical Therapy Assessment Goals ELIZABETH Impairment 20/50 Short Term Goal (STG) Pt will improve ELIZABETH score to no greater than 15/50 to show improved functional ability. STG Duration 8 Director [employer] Goal (LTG) Pt will improve ELIZABETH score to no greater than 8/50 to show improved functional ability. LTG Duration 01/03 strength Short Term Goal (STG) Pt will be indep w/HEP STG Duration 11/07 Residential Goal (LTG) Pt will score at least 4/5 on all B hip MMT to show improved strength and stability in order to allow increased time in standing and w/activity. LTG Duration 01/03 walk Impairment 2 min walk 195ft w/significant pain in BLEs and feet Short Term Goal (STG) Pt will be able to complete 2 min walk w/o inc pain and improve distance to at least 250ft to allow for pt to walk more functional distances w/ SPC. STG Duration 11/15 Director [employer] Goal (LTG) Pt will be able to complete 6 min walk w/o inc pain greater than 2/10 and be able to ambulate at least 700ft w/SPC LTG Duration 01/03 Assessment Summary Assessment Patient reports less hip pain ambulating with SPC end of session, but notes increased ankle pain, attributes to hardware in ankle right LE. Physical Therapy Plan Frequency and Duration Frequency of Treatment 2x/Week Duration of treatment (weeks) 12 Plan of Care Start Date 10/12/23 Plan of Care End Date 01/04/24 Next Visit Focus/Plan Next Note Type Treatment Note Next Visit Plan review HEP; manual to hip and pelvis to improv mobility and dec pain; treat along sciatic n path
--- NOTE | 2023-10-22 16:22 | PT.OTN ---
Current Diagnoses Other chronic pain (10/22/23) Sacrococcygeal disorders, not elsewhere classified (10/22/23) Sciatica, unspecified side (10/22/23) Muscle weakness (generalized) (10/22/23) Difficulty in walking, not elsewhere classified (10/22/23) Other abnormalities of gait and mobility (10/22/23) Physical Therapy Treatment Note PT-OP-A Visit Information Start: 10/08/23 13:20 Freq: Status: Active Protocol: Document 10/22/23 14:33 AB (Rec: 10/22/23 16:21 AB [id number]) Out-Patient Physical Therapy Visit Information Visit Information Visit Type Treatment Note Visit Note 07/14 Visit [email or web address] Access Code: [email or web address] Visit Start Time 14:35 Visit Stop Time 15:16 Visit Number 4 Number of MERCHANDISING LEAD Visits 2 PT-OP-B Current Condition Start: 10/08/23 13:20 Freq: Status: Active Protocol: Document 10/12/23 14:34 [facility] (Rec: 10/12/23 17:45 [facility] [id number]) Current Condition History of Current Condition Onset Date early w/worsening of 4-5 years and even more this year Current Complaints back pain to foot pain History of Current Condition Pt reports bottom of foot is on fire and travels up back of legs and to back. She sometimes feels like if she doesn't sit down, she is going to fall. She cannot go to [employer] anymore as she can't walk to the car. She doens't go to the grocery store anymore. She uses ice and tylenol daily. She doesn't know when it is going to happen until foot goes numb and hot. She reports back pain that can sometimes starts first and if she can get ice on it, she doesn't have as much pain as normal. This has been getting worse and worse. This has been going on for years. 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 She broke her ankle earlier this year coming out from getting bloodwork. Pt did have surgery and feels it when its cold, but overall well healed. She fell and hit the bed frame w/L elbow. She was using walker and hit a rug and went fwd and turned around and hit elbow. Has not seen doctor but can pronate/supinate w/o pain and can flex/ext elbow almost full range w/some pain. Does hurt ot use it. Pt reports last year fell and had a subdural hematoma and wonders if that is what is making her dizzy and affecting her balance. Pt used to have massages and chiro and those helped. This was back when she was working (retired in 2008). hx of B TKAs, dizziness, falls. Was able to walk a couple blocks a few months ago but can't even do that anymore. Has not been able to do much cleaning. Has B TKA in and feels like R knee and hip want to go out on her Recently and that scares her. Pt reports since she had a mini stroke, she has extra breaths and gets more SOB and has choked some. Mini stroke in 2021 Prior Treatments and Tests xray: IMPRESSION: 1. 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 2. Moderate to severe levoscoliosis. 3. Grade 1 anterolisthesis of L5 on S1. R hip xray: IMPRESSION: Mild degenerative joint disease. Treatment Goals Patient/Caregiver Goals be able to clean her house, be able to go for walks PT-OP-C Subjective Start: 10/08/23 13:20 Freq: Status: Active Protocol: Document 10/22/23 14:33 AB (Rec: 10/22/23 16:21 AB [id number]) OP-PT Subjective Patient Comments Patient Comments Patient reports she was feeling better, but then she used her small vacuum and took a shower and then her pain came back. PT-OP-D Balance Start: 10/08/23 13:20 Freq: Status: Active Protocol: Document 10/12/23 14:34 [facility] (Rec: 10/12/23 17:45 [facility] [id number]) Balance Tests Single Limb Standing Single Limb- Right unable Single Limb- Left 1 sec if uses UE to start to get balance PT-OP-E Functional Tests Start: 10/12/23 17:45 Freq: Status: Active Protocol: Document 10/12/23 14:34 [facility] (Rec: 10/12/23 17:46 [facility] [id number]) Functional Tests 2 Minute Walk Test Distance 195ft Device Used SPC Comments significant pain in B feet and LEs by 1.5min PT-OP-G Mobility & Gait Start: 10/08/23 13:20 Freq: Status: Active Protocol: Document 10/12/23 14:34 [facility] (Rec: 10/12/23 17:45 [place] [id number]) OP Mobility Evaluation Bed Mobility Supine to and from Sit SOB w/bed mobility Transfers Sit to Stand w/UEs and inc time; dec tolerance to standing for testing and required mult seated rest breaks OP Gait Assessment Comments Gait Comments dec R stance time; uses SPC, R pelvic shear w/RLE WB, slow gait, dec foot clearance PT-OP-J Posture/Palpation/Skin Start: 10/08/23 13:20 Freq: Status: Active Protocol: Document 10/12/23 14:34 [facility] (Rec: 10/12/23 17:45 [place] [id number]) Posture Evaluation Comments Posture Comments L pelvic shear, RLE turned out , R trunk rot, SB L slightly ; knees slightly bent in standing PT-OP-K Range of Motion Start: 10/08/23 13:20 Freq: Status: Active Protocol: Document 10/12/23 14:34 [facility] (Rec: 10/12/23 17:45 [place] [id number]) Lumbar Spine Range of Motion Lumbar Spine Active Percentage Flexion 70 Extension 20 Rotation Left 10 Rotation Right 25 Lateral Flexion Left 40 Lateral Flexion Right 20 Comments pain down R post leg w/flex; pain R hip w/SB R & rot L pain R buttocks PT-OP-L Special Tests Start: 10/08/23 13:20 Freq: Status: Active Protocol: Document 10/12/23 14:34 [facility] (Rec: 10/12/23 17:45 [place] [id number]) Special Tests Lumbar Spine Special Tests Slump Test Results positive B PT-OP-M Strength Start: 10/08/23 13:20 Freq: Status: Active Protocol: Document 10/12/23 14:34 [facility] ([facility]23 [id number] Hip Strength Hip Manual Muscle Testing Right Flexion (L2) 3+ Fair+ Abduction 3- Fair- External Rotation 3+ Fair+ Internal Rotation 4- Good- Comments B absent achilles reflex; L patellar reflex 2+; R 3+ Left Flexion (L2) 3+ Fair+ Abduction 3 Fair External Rotation 3 Fair Internal Rotation 3+ Fair+ Knee Strength Knee Manual Muscle Testing Right Flexion (S2) 4- Good- Extension (L3) 4- Good- Left Flexion (S2) 5 Normal Extension (L3) 5 Normal Ankle/Foot Strength Ankle and Foot Manual Muscle Testing Right Dorsiflexion (L4) 4+ Good+ Plantarflexion (S1) 5 Normal Left Dorsiflexion (L4) 4+ Good+ Plantarflexion (S1) 5 Normal Comments seated PF testing PT-OP-Q Treatments Start: 10/08/23 13:20 Freq: Status: Active Protocol: Document 10/22/23 14:33 AB (Rec: 10/22/23 16:21 AB [id number]) Therapeutic Exercises Supine Exercises abdominal bracing ex Supine Exercise Name 1. bent knee fall out, 2 abd bracing with LE extension Side bilateral Reps/Minutes X5 X 5 each LE each exercise Comments verbal cues LTR Side bilateral Reps/Minutes 10 ea stretches Supine Exercise Name cross body piriformis and figure $ Side bilateral Reps/Minutes 60 sec X 1each, each LE sciatic n glide Side bilateral Reps/Minutes 10 Comments comfortable range w/cues for breath Sitting Exercises seated hip abduction with band Side bilateral Resistance level one band Reps/Minutes one minute X 2 Manual Therapy Treatment Soft Tissue Mobilization glutes Body Location Rpiriformis, glute med, glute max, and hamstring Mobilization Type Cross-Friction,Rolling Intensity/Depth Moderate Body Position Hooklying Manual Techniques MET for right AI left PI and pubic shotgun Body Position Hooklying Reps/Duration 6 X6 each PT-OP-T Assessment and Plan Start: 10/08/23 13:20 Freq: Status: Active Protocol: Document 10/22/23 14:33 AB (Rec: 10/22/23 16:21 AB [id number]) Physical Therapy Assessment Goals ELIZABETH Impairment 20/50 Short Term Goal (STG) Pt will improve ELIZABETH score to no greater than 15/50 to show improved functional ability. STG Duration 8 [facility] Goal (LTG) Pt will improve ELIZABETH score to no greater than 8/50 to show improved functional ability. LTG Duration 01/03 strength Short Term Goal (STG) Pt will be indep w/HEP STG Duration 11/07 Marketing Liaison Goal (LTG) Pt will score at least 4/5 on all B hip MMT to show improved strength and stability in order to allow increased time in standing and w/activity. LTG Duration 01/03 walk Impairment 2 min walk 195ft w/significant pain in BLEs and feet Short Term Goal (STG) Pt will be able to complete 2 min walk w/o inc pain and improve distance to at least 250ft to allow for pt to walk more functional distances w/ SPC. STG Duration 11/15 [facility] Goal (LTG) Pt will be able to complete 6 min walk w/o inc pain greater than 2/10 and be able to ambulate at least 700ft w/SPC LTG Duration 01/03 Assessment Summary Assessment Patient reports having less pain end of session. Michelle was able to perform core strengthening with good technique without holding breath and verbalizing that she has to focus on not holding breath with bracing. Physical Therapy Plan Next Visit Focus/Plan Next Note Type Treatment Note Next Visit Plan review HEP; manual to hip and pelvis to improv mobility and dec pain; treat along sciatic n path
--- NOTE | 2023-12-28 10:03 | PT.OPDS ---
Current Diagnoses Other chronic pain (10/22/23) Sacrococcygeal disorders, not elsewhere classified (10/22/23) Sciatica, unspecified side (10/22/23) Muscle weakness (generalized) (10/22/23) Difficulty in walking, not elsewhere classified (10/22/23) Other abnormalities of gait and mobility (10/22/23) Visit Care Team Role Provider Type Kunal Barrera DO Family Provider Physician Primary Care Provider Specialty: [facility] Address: [address] [place] [address], [id number] Email: [email or web address] Attending Provider Advanced Curve Saw Operator Referring Provider Specialty: [facility] Address: [address] [place] [address], [address] Email: [email or web address] Visit Number Visit Number 4 Discharge Summary PT-OP-B Current Condition Start: 10/08/23 13:20 Freq: Status: Active Protocol: Document 10/12/23 14:34 [facility] (Rec: 10/12/23 17:45 [facility] [id number]) Current Condition History of Current Condition Onset Date early w/worsening of 4-5 years and even more this year Current Complaints back pain to foot pain History of Current Condition Pt reports bottom of foot is on fire and travels up back of legs and to back. She sometimes feels like if she doesn't sit down, she is going to fall. She cannot go to [employer] anymore as she can't walk to the car. She doens't go to the grocery store anymore. She uses ice and tylenol daily. She doesn't know when it is going to happen until foot goes numb and hot. She reports back pain that can sometimes starts first and if she can get ice on it, she doesn't have as much pain as normal. This has been getting worse and worse. This has been going on for years. 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 She broke her ankle earlier this year coming out from getting bloodwork. Pt did have surgery and feels it when its cold, but overall well healed. She fell and hit the bed frame w/L elbow. She was using walker and hit a rug and went fwd and turned around and hit elbow. Has not seen doctor but can pronate/supinate w/o pain and can flex/ext elbow almost full range w/some pain. Does hurt ot use it. Pt reports last year fell and had a subdural hematoma and wonders if that is what is making her dizzy and affecting her balance. Pt used to have massages and chiro and those helped. This was back when she was working (retired in 2008). hx of B TKAs, dizziness, falls. Was able to walk a couple blocks a few months ago but can't even do that anymore. Has not been able to do much cleaning. Has B TKA in and feels like R knee and hip want to go out on her Recently and that scares her. Pt reports since she had a mini stroke, she has extra breaths and gets more SOB and has choked some. Mini stroke in 2021 Prior Treatments and Tests xray: IMPRESSION: 1. 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 2. Moderate to severe levoscoliosis. 3. Grade 1 anterolisthesis of L5 on S1. R hip xray: IMPRESSION: Mild degenerative joint disease. Treatment Goals Patient/Caregiver Goals be able to clean her house, be able to go for walks PT-OP-C Subjective Start: 10/08/23 13:20 Freq: Status: Active Protocol: Document 10/22/23 14:33 AB (Rec: 10/22/23 16:21 AB [id number]) OP-PT Subjective Patient Comments Patient Comments Patient reports she was feeling better, but then she used her small vacuum and took a shower and then her pain came back. PT-OP-D Balance Start: 10/08/23 13:20 Freq: Status: Active Protocol: Document 10/12/23 14:34 [facility] (Rec: 10/12/23 17:45 [facility] [id number]) Balance Tests Single Limb Standing Single Limb- Right unable Single Limb- Left 1 sec if uses UE to start to get balance PT-OP-E Functional Tests Start: 10/12/23 17:45 Freq: Status: Active Protocol: Document 10/12/23 14:34 [facility] (Rec: 10/12/23 17:46 [id number] Functional Tests 2 Minute Walk Test Distance 195ft Device Used SPC Comments significant pain in B feet and LEs by 1.5min PT-OP-G Mobility & Gait Start: 10/08/23 13:20 Freq: Status: Active Protocol: Document 10/12/23 14:34 [facility] (Rec: 10/12/23 17:45 [facility] [id number]) OP Mobility Evaluation Bed Mobility Supine to and from Sit SOB w/bed mobility Transfers Sit to Stand w/UEs and inc time; dec tolerance to standing for testing and required mult seated rest breaks OP Gait Assessment Comments Gait Comments dec R stance time; uses SPC, R pelvic shear w/RLE WB, slow gait, dec foot clearance PT-OP-J Posture/Palpation/Skin Start: 10/08/23 13:20 Freq: Status: Active Protocol: Document 10/12/23 14:34 [facility] (Rec: 10/12/23 17:45 [id number] Posture Evaluation Comments Posture Comments L pelvic shear, RLE turned out , R trunk rot, SB L slightly ; knees slightly bent in standing PT-OP-K Range of Motion Start: 10/08/23 13:20 Freq: Status: Active Protocol: Document 10/12/23 14:34 [facility] (Rec: 10/12/23 17:45 [id number] Lumbar Spine Range of Motion Lumbar Spine Active Percentage Flexion 70 Extension 20 Rotation Left 10 Rotation Right 25 Lateral Flexion Left 40 Lateral Flexion Right 20 Comments pain down R post leg w/flex; pain R hip w/SB R & rot L pain R buttocks PT-OP-L Special Tests Start: 10/08/23 13:20 Freq: Status: Active Protocol: Document 10/12/23 14:34 [facility] (Rec: 10/12/23 17:45 [facility] [id number]) Special Tests Lumbar Spine Special Tests Slump Test Results positive B PT-OP-M Strength Start: 10/08/23 13:20 Freq: Status: Active Protocol: Document 10/12/23 14:34 [facility] (Rec: 10/12/23 17:45 [facility] [id number]) Hip Strength Hip Manual Muscle Testing Right Flexion (L2) 3+ Fair+ Abduction 3- Fair- External Rotation 3+ Fair+ Internal Rotation 4- Good- Comments B absent achilles reflex; L patellar reflex 2+; R 3+ Left Flexion (L2) 3+ Fair+ Abduction 3 Fair External Rotation 3 Fair Internal Rotation 3+ Fair+ Knee Strength Knee Manual Muscle Testing Right Flexion (S2) 4- Good- Extension (L3) 4- Good- Left Flexion (S2) 5 Normal Extension (L3) 5 Normal Ankle/Foot Strength Ankle and Foot Manual Muscle Testing Right Dorsiflexion (L4) 4+ Good+ Plantarflexion (S1) 5 Normal Left Dorsiflexion (L4) 4+ Good+ Plantarflexion (S1) 5 Normal Comments seated PF testing PT-OP-T Assessment and Plan Start: 10/08/23 13:20 Freq: Status: Active Protocol: Document 12/28/23 10:01 [facility] (Rec: 12/28/23 10:03 [facility] [id number]) Physical Therapy Assessment Goals ELIZABETH Impairment 20/50 Short Term Goal (STG) Pt will improve ELIZABETH score to no greater than 15/50 to show improved functional ability. STG Duration 11/07 [facility] Goal (LTG) Pt will improve ELIZABETH score to no greater than 8/50 to show improved functional ability. LTG Duration 01/03 strength Short Term Goal (STG) Pt will be indep w/HEP STG Duration 11/07 [facility] Goal (LTG) Pt will score at least 4/5 on all B hip MMT to show improved strength and stability in order to allow increased time in standing and w/activity. LTG Duration 01/03 walk Impairment 2 min walk 195ft w/significant pain in BLEs and feet Short Term Goal (STG) Pt will be able to complete 2 min walk w/o inc pain and improve distance to at least 250ft to allow for pt to walk more functional distances w/ SPC. STG Duration 11/15 Electorate Officer Goal (LTG) Pt will be able to complete 6 min walk w/o inc pain greater than 2/10 and be able to ambulate at least 700ft w/SPC LTG Duration 01/03 Assessment Summary Assessment Schedulers reached out to patient to get scheduled, had to leave a but pt did not call back to schedule further visits. Pt has not been seen in over 2 months and has not called clinic. POC expires in a week and pt only seen 4 times including eval. DC d/t pt no longer attending PT Physical Therapy Plan Discharge Physical Therapy Discharge Reasons No Longer Attending PT
== END 2024-01-07 15:00 | disposition home or self-care (01) ==
LOC: PHYS 14:30
PROVIDERS: Family Provider Family Medicine; PCP Family Medicine; Referring Provider Nurse Practitioner; Visit Provider Nurse Practitioner
DX: M53.3 Sacrococcygeal disorders, not elsewhere classified (principal); G89.29 Other chronic pain; M54.30 Sciatica, unspecified side; M62.81 Muscle weakness (generalized); R26.2 Difficulty in walking, not elsewhere classified; R26.89 Other abnormalities of gait and mobility
CPT/HCPCS: 97110; 97140; 97163; 97535

== ENCOUNTER → 2024-05-05 12:24 | Outpatient (CLI) | payer MEDICARE, OTHER, SELFPAY ==
[2023-02-03 14:58] VITALS: BMI 34.7
--- NOTE | 2024-05-05 12:26 | DI.CT.S_ITS ---
PROCEDURE: CT ANGIO HEAD INDICATIONS: hx CVA TECHNIQUE: Precontrast 4.5 mm thick angled axial sections acquired from the foramen magnum to the vertex. After the administration of intravenous contrast, 1 mm thick sections acquired through the [employer] [place]. Postcontrast 4.5 mm thick sections then re-acquired from the foramen magnum to the vertex. 10 mm thick fowvfzd-usmeqyloo-wjmerjhrxn (MIP) reformats were acquired of the central intracranial vasculature. For radiation dose reduction, the following was used: automated exposure control, adjustment of mA and/or kV according to patient size. COMPARISON: [facility], CT, CT ANGIO HEAD AND NECK, 05/13/2021, 14:14. [facility], CT, CT HEAD/BRAIN WO CON, 01/05/2023, 11:23. FINDINGS: Image quality: Limited by bolus timing, with venous contamination. Anterior circulation: Intracranial internal carotid arteries are normal in size and flow. The flow within the paired anterior cerebral arteries is normal and symmetric. Incidental note is made of an accessory branch of the anterior cerebral artery system, emanating from the anterior communicating artery. The flow within the middle cerebral arteries is normal and symmetric. The anterior communicating artery is seen. No aneurysms are seen. Posterior circulation: Visualized portions of the vertebral arteries demonstrate normal caliber, and join to form a normal appearing basilar artery. Flow within the posterior cerebral arteries is normal and symmetric. No aneurysms are seen. CSF spaces: Ventricles are normal in size and shape. Basal cisterns are patent. No extra-axial fluid collections. Brain: No midline shift. No intracranial bleeds or masses. Yu-white matter interface appears intact. Skull and face: Left forehead remote fracture can be seen. Calvarium and facial bones otherwise appear intact, without suspicious lesions. Sinuses: Visualized sinuses and mastoids are clear. IMPRESSION: No significant intracranial arterial abnormality is seen. Additional findings: Remote left forehead fracture Dictated by: Jose Hagen M.D. on 05/05/2024 at 13:50 Approved by: Jose Hagen M.D. on 05/05/2024 at 13:52
[2024-05-05 12:58] LABS: Estimated Glomerular Filt Rate > 60 mL/min (>60)
[2024-05-05 13:21] LABS: Add Manual Diff / Slide Review NO; Basophils Absolute Auto 0 /uL (0-100); Basophils Percent Auto 0.6 % (0-2); Eosinophils Absolute Auto 200 /uL (0-450); Eosinophils Percent Auto 3.4 % (2-4); Hematocrit 38.5 % (36-46); Hemoglobin 12.7 g/dL (12.0-16.0); Lymphocytes Absolute Auto 1900 /uL (1100-4500); Lymphocytes Percent Auto 27.5 % (25-40); Mean Corpuscular HGB Conc 32.8 % (30-36); Mean Corpuscular Hemoglobin 27.5 PG (26-34); Mean Corpuscular Volume 83.7 fL (80-100); Monocytes Absolute Auto 600 /uL (0-900); Monocytes Percent Auto 8.4 % (3-14); Neutrophils Absolute Auto 4200 /uL (1500-7000); Neutrophils Percent Auto 60.1 % (50-75); Platelet Count 347 X10^3/uL (150-400); Red Cell Distribution Width 14.7 % (11.6-14.8); White Blood Cell Count 6.9 X10^3/uL (4.5-11.0)
[2024-05-05 13:38] LABS: HEMOLYSIS < 15 (0-50); Iron 68 ug/dL (37-170)
[2024-05-05 13:49] LABS: Percent Iron Saturation 22 % (15-50); Total Iron Binding Capacity 309 ug/dL (265-497); Transferrin 311 mg/dL (206-381)
[2024-05-05 14:08] LABS: TSH w/ Reflex to FT4 0.83 uIU/mL (0.47-4.68)
[2024-05-05 14:23] LABS: Alanine Aminotransferase 16 IU/L (<35); Albumin 4.2 g/dL (3.5-5.0); Albumin Globulin Ratio 1.4 (1.0-2.8); Alkaline Phosphatase 77 U/L (38-126); Aspartate Aminotransferase 33 IU/L (14-36); BUN Creatinine Ratio 15.5 (6-22); Bilirubin Total 0.9 mg/dL (0.2-1.3); Blood Urea Nitrogen 15 mg/dL (7-17); Calcium 10.1 mg/dL (8.4-10.2); Carbon Dioxide 28 mmol/L (22-32); Chloride 104 mmol/L (98-107); Cholesterol 189 mg/dL (140-199); Estimated Glomerular Filt Rate > 60 mL/min (>60); Globulin 2.9 g/dL (1.7-4.1); Glucose 109 mg/dL (80-110); HDL Cholesterol 74 mg/dL (40-60); HEMOLYSIS < 15 (0-50); LDL Cholesterol Calculated 84 mg/dL (<100); Sodium 137 mmol/L (137-145); Total Protein 7.1 g/dL (6.3-8.2); Triglycerides 156 mg/dL (35-150)
[2024-05-05 14:27] LABS: Vitamin B12 919 pg/mL (239-931)
[2024-05-05 14:39] LABS: Potassium 5.5 mmol/L (3.4-5.1)
== END ==
PROVIDERS: Radiology Diagnostic Radiology; Family Provider Family Medicine; PCP Family Medicine; Referring Provider Family Medicine; Visit Provider Family Medicine
DX: R42 Dizziness and giddiness (principal); I10 Essential (primary) hypertension; D64.9 Anemia, unspecified; Z12.11 Encounter for screening for malignant neoplasm of colon; E78.2 Mixed hyperlipidemia; J44.9 Chronic obstructive pulmonary disease, unspecified; Z86.73 Personal history of transient ischemic attack (TIA), and cerebral infarction without residual deficits; Z87.81 Personal history of (healed) traumatic fracture
CPT/HCPCS: 36415; 70496; 80053; 80061; 82565; 82607; 83540; 83550; 84443; 85025; Q9967

== ENCOUNTER → 2024-06-24 12:15 | Outpatient (CLI) | payer MEDICARE, OTHER, SELFPAY ==
[2023-02-03 14:58] VITALS: BMI 34.7
--- NOTE | 2024-06-24 12:39 | DI.RAD.S_ITS ---
PROCEDURE: XR LUMBAR SPINE 2-3V INDICATIONS: Worsening lower back pain TECHNIQUE: 3 views of the lumbar spine were acquired. COMPARISON: [facility], CR, XR LUMBAR SPINE MIN 4V, 09/04/2022, 12:19. FINDINGS: Bones: 5 [id number] vertebrae are present. Convex left scoliosis centered at L3, Stafford angle of 27?. No vertebral body compression fractures. No suspicious bony lesions. Grade 1 retrolisthesis of L2 on L3 and grade 1 anterolisthesis of L5 on S1. Moderate to severe disc height loss at all levels. Soft tissues: Overlying bowel gas pattern is normal. No suspicious soft tissue calcifications. IMPRESSION: Moderate to severe, multilevel degenerative disc disease and lower lumbar facet arthrosis. Convex left scoliosis. Dictated by: Jonathan Fernandes M.D. on 06/24/2024 at 14:17 Approved by: Jonathan Fernandes M.D. on 06/24/2024 at 14:18
== END ==
PROVIDERS: Family Provider Family Medicine; PCP Family Medicine; Referring Provider Family Medicine; Visit Provider Family Medicine
DX: M51.360 Other intervertebral disc degeneration, lumbar region with discogenic back pain only (principal); M47.816 Spondylosis without myelopathy or radiculopathy, lumbar region; M43.16 Spondylolisthesis, lumbar region; M43.17 Spondylolisthesis, lumbosacral region; G89.29 Other chronic pain; M41.9 Scoliosis, unspecified
CPT/HCPCS: 72100

== ENCOUNTER → 2024-07-12 12:00 | Outpatient (CLI) | payer MEDICARE, OTHER, SELFPAY ==
[2023-02-03 14:58] VITALS: BMI 34.7
--- NOTE | 2024-07-12 12:02 | DI.ECHO.S_ITS ---
[facility]+ [facility] : : [address] : : [place] : : [id number] : : Phone: [phone] Echocardiogram Report + + :Name: MELANI SPAIN Study Date: 07/12/2024 Height: 68 in : :[facility] ReadingLocation: Weight: 208 lb : : Gender: Female BSA: 2.1 m2 : :: 1945 Age: 79 yrs BP: 134/83 mmHg: :Reason For Study: CHEST PAIN : :Ordering Physician: GILBERTO, : :ELENA Hernandez Performed By: Breanna Forman : :Referring: ELENA PERDOMO : + + Interpretation Summary The study quality was technically difficult. There is mild concentric left ventricular hypertrophy. The ejection fraction is estimated to be 60-65%. Diastolic function could not be accurately assessed due to confounding valvular disease. The right ventricle is normal in size and function. There is moderate to severe mitral annular calcification. There is moderate aortic stenosis. There is mild tricuspid regurgitation. The right ventricular systolic pressure is estimated to be at least 31 mmHg based on an estimated right atrial pressure of 3 mm Hg. Compared to the prior study 04/28/2023, aortic valve gradient has increased. Procedure: A two-dimensional transthoracic echocardiogram with color flow and Doppler was performed. The study quality was technically difficult. Comparison is made with the echocardiogram of 04/28/2023. The patient was in sinus rhythm with heart rates between 80-91 bpm during the exam. Left Ventricle: The left ventricle is grossly normal size. Proximal septal thickening is noted. There is mild concentric left ventricular hypertrophy. The ejection fraction is estimated to be 60-65%. Diastolic function could not be accurately assessed due to confounding valvular disease. Right Ventricle: The right ventricle is normal in size and function. Atria: The left atrial size is normal. Right atrial size is normal. Mitral Valve: There is moderate to severe mitral annular calcification. The mitral valve leaflets appear mildly thickened, but open well. The mitral valve mean gradient is 4.3 mmHg. There is trace mitral regurgitation. Aortic Valve: The aortic valve is moderately calcified. There is moderately reduced leaflet mobility. There is moderate aortic stenosis. The peak aortic velocity is 3.6 m/sec. The aortic valve mean gradient is 32 mmHg. The calculated aortic valve area is 1.0 cm2. No aortic regurgitation is present. Tricuspid Valve: The tricuspid valve leaflets are thin and pliable. There is mild tricuspid regurgitation. The right ventricular systolic pressure is estimated to be at least 31 mmHg based on an estimated right atrial pressure of 3 mm Hg. Pulmonic Valve: The pulmonic valve leaflets are thin and pliable; valve motion is normal. There is trace pulmonic regurgitation. Great Vessels: The aortic root is normal size. The dimensions of the ascending aorta are normal. The IVC is of normal diameter and collapses greater than 50% with a sniff. This suggests a low right atrial pressure of 3 mm Hg. Pericardium/ Pleura There is no pericardial effusion. There is no pleural effusion. MMode/2D Measurements & Calculations LVIDd: 4.1 cm LVOT diam: 2.0 cm LVIDs: 2.7 cm Ao root diam: 3.6 cm FS: 33.8 % asc Aorta Diam: 3.3 cm IVSd: 1.3 cm Ao Arch Diam (Prox Trans): 2.6 cm LVPWd: 1.2 cm LV chacon. diameter/BSA (cm/m^2): 2.0 LV sys. diameter/BSA (cm/m^2): 1.3 LA A2 area: 17.1 cm2 RA long axis: 5.2 cm LA A4 area: 21.3 cm2 RA area: 16.8 cm2 LA length (vol): 5.9 cm RA vol: 45.9 ml LA vol: 52.1 ml RA : 22.1 ml/m2 LA vol index: 25.1 ml/m2 IVC diam: 1.7 cm RVD1 (basal): 3.4 cm RVD2 (mid): 3.4 cm TAPSE: 2.0 cm Doppler Measurements & Calculations Ao V2 max: 356.3 cm/sec LVOT Max Jimbo: 112.3 cm/sec Ao V2 mean: 257.4 cm/sec LV V1 max P.1 mmHg Ao max P.3 mmHg LV V1 VTI: 23.2 cm Ao mean P.6 mmHg MARILU(I,D): 1.0 cm2 Ao V2 VTI: 70.5 cm MARILU(V,D): 1.00 cm2 sev ratio: 0.33 MARILU indexed to BSA (cm^2/m^2): 0.50 MV E max jimbo: 84.8 cm/sec TR max jimbo: 237.1 cm/sec MV A max jimbo: 141.0 cm/sec TR max P.5 mmHg MV E/A: 0.60 PA pr(Accel): 27.6 mmHg Med Peak E' Jimbo: 4.6 cm/sec E/E' med: 18.5 Lat Peak E' Jimbo: 9.3 cm/sec E/E' lat: 9.1 E/e' average: 13.8 MV dec time: 0.20 sec MVA(VTI): 2.6 cm2 MV V2 mean: 101.0 cm/sec SV(LVOT): 73.7 ml MV mean P.3 mmHg MV V2 VTI: 28.3 cm Reading Physician:02:00 PM
--- NOTE | 2024-07-12 12:03 | DI.NM.S_ITS ---
PROCEDURE: NM ASHLEY PERF SPECT R&S PHARM Rest and pharmacological stress myocardial perfusion SPECT with gated imaging and ejection fraction RADIOPHARMACEUTICAL: 25 mCi Tc-99m tetrafosmin IV at rest and 25.4 mCi Tc-99m tetrafosmin IV at peak effect of pharmacological stress. Mje-eda-cutemblt was performed. INDICATIONS: Shortness of breath and chest pain TECHNIQUE: Radiopharmaceutical was injected at peak stress test, and also at rest. SPECT images were obtained. SPECT myocardial perfusion images were displayed in short axis, horizontal long axis, and vertical long axis views. Gated images were reviewed using [employer] software. COMPARISON: None. CARDIAC STRESS: A pharmacologic stress test was performed under the supervision of an attending staff, using an infusion of regadenoson 0.4 mg IV. Hemodynamic data: There is normal blood pressure and heart rate response to pharmacologic stress. Symptoms: The patient denied anginal chest pain. EKG: No diagnostic changes of ischemia; no ectopy. FINDINGS: Raw data: There is good myocardial uptake of radiotracer. No significant motion artifacts. Jcba-rx-irdjn ratio is 0.35 (normal is less than 0.38 for tetrafosmin tracer). Left ventricle function: Gated images demonstrate normal left ventricular wall thickening. No segmental wall motion abnormalities. No transient ischemic dilation; TID is 1.1 (normal less than 1.3). Left ventricle resting end diastolic volume is 66 mL. Left ventricle stress ejection fraction is >75%; normal range is above 45%. Myocardial perfusion: There is normal distribution of activity in the right and left ventricular myocardium. No fixed or reversible perfusion defects. IMPRESSION: Low risk study. No evidence of pharmacologic induced ischemia or scar. Normal LV size with hyperdynamic function. Dictated by: Elena Perdomo D.O. on 07/13/2024 at 17:17 Approved by: Elena Perdomo D.O. on 07/13/2024 at 17:19
== END ==
PROVIDERS: Family Provider Family Medicine; PCP Family Medicine; Referring Provider Family Medicine; Visit Provider Internal Medicine Cardiovascular Disease
DX: I08.2 Rheumatic disorders of both aortic and tricuspid valves (principal); R07.9 Chest pain, unspecified; R06.02 Shortness of breath
CPT/HCPCS: 78452; 93017; 93306; A9502; J2785

== ENCOUNTER → 2024-07-13 10:59 | Outpatient (CLI) | payer MEDICARE, OTHER, SELFPAY ==
[2023-02-03 14:58] VITALS: BMI 34.7
[2024-07-13 12:08] LABS: Add Manual Diff / Slide Review NO; Basophils Absolute Auto 0 /uL (0-100); Basophils Percent Auto 0.5 % (0-2); Eosinophils Absolute Auto 200 /uL (0-450); Eosinophils Percent Auto 2.9 % (2-4); Hematocrit 38.3 % (36-46); Hemoglobin 12.7 g/dL (12.0-16.0); Lymphocytes Absolute Auto 1600 /uL (1100-4500); Lymphocytes Percent Auto 24.7 % (25-40); Mean Corpuscular HGB Conc 33.1 % (30-36); Mean Corpuscular Hemoglobin 27.8 PG (26-34); Monocytes Absolute Auto 500 /uL (0-900); Monocytes Percent Auto 7.7 % (3-14); Neutrophils Absolute Auto 4200 /uL (1500-7000); Neutrophils Percent Auto 64.2 % (50-75); Platelet Count 283 X10^3/uL (150-400); Red Blood Cell Count 4.55 X10^6/uL (4.0-5.2); Red Cell Distribution Width 15.1 % (11.6-14.8); White Blood Cell Count 6.5 X10^3/uL (4.5-11.0)
[2024-07-13 12:16] LABS: Hemoglobin A1C% w Est Avg Glu 5.2 % (4.0-6.0)
[2024-07-13 12:30] LABS: Alanine Aminotransferase 19 IU/L (<35); Albumin 4.3 g/dL (3.5-5.0); Albumin Globulin Ratio 1.6 (1.0-2.8); Aspartate Aminotransferase 34 IU/L (14-36); Blood Urea Nitrogen 16 mg/dL (7-17); Calcium 9.6 mg/dL (8.4-10.2); Carbon Dioxide 26 mmol/L (22-32); Chloride 104 mmol/L (98-107); Estimated Glomerular Filt Rate > 60 mL/min (>60); Globulin 2.7 g/dL (1.7-4.1); Glucose 98 mg/dL (80-110); HDL Cholesterol 71 mg/dL (40-60); HEMOLYSIS < 15 (0-50); Magnesium 1.7 mg/dL (1.6-2.3); Potassium 4.9 mmol/L (3.4-5.1); Sodium 137 mmol/L (137-145)
[2024-07-13 12:31] LABS: Alkaline Phosphatase 83 U/L (38-126); Bilirubin Total 1.2 mg/dL (0.2-1.3); Cholesterol 162 mg/dL (140-199); LDL Cholesterol Calculated 65 mg/dL (<100); Triglycerides 132 mg/dL (35-150)
[2024-07-13 12:58] LABS: TSH w/ Reflex to FT4 0.51 uIU/mL (0.47-4.68)
== END ==
PROVIDERS: Internal Medicine Cardiovascular Disease; Family Provider Family Medicine; PCP Family Medicine; Referring Provider Family Medicine; Visit Provider Family Medicine
DX: I10 Essential (primary) hypertension (principal); Z13.1 Encounter for screening for diabetes mellitus
CPT/HCPCS: 36415; 80053; 80061; 83036; 83735; 84443; 85025

== ENCOUNTER → 2024-09-29 09:30 | Outpatient (CLI) | payer MEDICARE, OTHER, SELFPAY ==
[2023-02-03 14:58] VITALS: BMI 34.7
[2024-09-29 10:14] LABS: Add Manual Diff / Slide Review NO; Basophils Absolute Auto 0 /uL (0-100); Basophils Percent Auto 0.4 % (0-2); Eosinophils Absolute Auto 300 /uL (0-450); Eosinophils Percent Auto 4.7 % (2-4); Hematocrit 38.5 % (36-46); Lymphocytes Absolute Auto 2000 /uL (1100-4500); Lymphocytes Percent Auto 28.1 % (25-40); Mean Corpuscular HGB Conc 33.8 % (30-36); Mean Corpuscular Hemoglobin 28.8 PG (26-34); Mean Corpuscular Volume 85.1 fL (80-100); Monocytes Absolute Auto 500 /uL (0-900); Monocytes Percent Auto 7.5 % (3-14); Neutrophils Absolute Auto 4300 /uL (1500-7000); Neutrophils Percent Auto 59.3 % (50-75); Platelet Count 342 X10^3/uL (150-400); Red Blood Cell Count 4.52 X10^6/uL (4.0-5.2); Red Cell Distribution Width 14.6 % (11.6-14.8); White Blood Cell Count 7.2 X10^3/uL (4.5-11.0)
[2024-09-29 10:23] LABS: Hemoglobin A1C% w Est Avg Glu 5.3 % (4.0-6.0)
[2024-09-29 10:38] LABS: Albumin 4.3 g/dL (3.5-5.0); BUN Creatinine Ratio 18.5 (6-22); Blood Urea Nitrogen 15 mg/dL (7-17); Calcium 9.8 mg/dL (8.4-10.2); Carbon Dioxide 26 mmol/L (22-32); Chloride 105 mmol/L (98-107); Estimated Glomerular Filt Rate > 60 mL/min (>60); Glucose 96 mg/dL (70-99); HEMOLYSIS < 15 (0-50); Potassium 4.7 mmol/L (3.4-5.1); Sodium 139 mmol/L (137-145)
[2024-09-29 10:47] LABS: Prealbumin 20.3 mg/dL (17.6-36.0)
[2024-09-29 10:56] LABS: Vitamin D 25 Hydroxy (D3) 50.3 ng/mL (30.0-100.0)
--- NOTE | 2024-09-29 11:29 | EKG_ITS ---
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
== END ==
LOC: RESP 09:32
PROVIDERS: Family Provider Family Medicine; PCP Family Medicine; Referring Provider Orthopaedic Surgery Adult Reconstructive Orthopaedic Surgery; Visit Provider Orthopaedic Surgery Adult Reconstructive Orthopaedic Surgery
DX: Z01.818 Encounter for other preprocedural examination (principal)
CPT/HCPCS: 36415; 80048; 82040; 82306; 83036; 84134; 85025; 93005

== ENCOUNTER 2024-10-17 08:27 | Day surgery (SDC) | payer MEDICARE, OTHER, SELFPAY ==
[2023-02-03 14:58] VITALS: BMI 34.7
[2024-10-12 11:51] VITALS: BMI 31.6
[2024-10-17] VITALS (11 sets, daily range): BP systolic 108–180; BP diastolic 60–94; PULSE 76–90; RESP 14–19; TEMP 36.2–37; O2SAT 92–99; BMI 31.9
[2024-10-17] MEDS: LACTATED RINGERS 1,000 ML 42 ML IV (09:38)
[2024-10-17] MEDS: ALBUTEROL/IPRATROPIUM 3 ML AMPUL INH (09:39)
--- NOTE | 2024-10-17 11:03 | PM.PREOP ---
Pre-operative Note Interval Note History & Physical reviewed/Exam performed by Physician: Yes Changes to H&P: No
[2024-10-17] MEDS: CEFAZOLIN 2 GM/100 ML PREMIX 100 ML IV (11:45)
[2024-10-17] MEDS: TRANEXAMIC ACID 1,000 MG VIAL 1000 MG INH ×2 (11:46→12:14)
--- NOTE | 2024-10-17 12:00 | SUR.OPER ---
Supine on padded OR bed, head on pillow, arms secured on padded arm boards at <90 degrees abduction, legs uncrossed, safety belt at thigh, tape over blanket over lower left leg.
[2024-10-17] MEDS: BUPIVACAINE 0.5% W/ EPI (PF) 30 ML VIAL INJ (12:11)
--- NOTE | 2024-10-17 12:23 | PM.OP.1 ---
Operative Date/Time/Diagnoses Date of procedure: 10/17/24 Time of procedure: 11:30 Pre-op diagnosis: Retained hardware right ankle Post-op diagnosis: same Procedure & Clinicians Procedure: Removal of syndesmotic screws from right ankle Same procedure(s) as scheduled: Yes Surgeon: Joey Cai Click Yes if Unassisted: Yes Anesthesia Type: General and Local Operative Notes Findings: Stable fracture Applied: none Estimated Blood Loss (mL): 10 Procedure in detail: This 79-year-old female patient underwent open reduction internal fixation of a right ankle fracture performed by myself over a year ago. She healed uneventfully. During the surgery syndesmotic screws were placed. She returned to clinic noting pain in her ankle. Radiographs demonstrated toggling around the syndesmotic screws. I discussed with her that elective removal of those screws could potentially result in lessened ankle pain. She does have some lumbar radiculopathy symptoms in a similar distribution and the overlapping nature of those pain generators does make it difficult to predict how much of her pain was coming from her ankle hardware in particular. Understanding this, she wished to proceed with elective hardware removal. I counseled her that I would remove the syndesmotic screws only and leave the remaining hardware. She understood these and wished to proceed. She was brought to the operating room preoperative holding area where I met with her and again discussed the procedure in detail. I marked and signed the informed consent. All questions were answered. She was brought back to the operating room and a time-out procedure was performed. Radiographs were displayed demonstrating the hardware to be removed. The operative site was prepped and draped in the usual sterile fashion. A tourniquet was placed but not inflated. I localized the syndesmotic screws under fluoroscopy. After localizing them I made an incision down to the plate. I identified the more inferior screw and confirmed that this was a syndesmotic screw on fluoroscopy. I used a screwdriver to remove it. I dissected proximally and identified the other screw. I used the same screwdriver to remove it. I placed bone wax over the holes in the bone. Obtained a fluoroscopic image which is included below demonstrating that the screws had been removed. No fractures were noted during this process. The operative site was copiously irrigated. The operative site was closed with 3-0 Vicryl and running 3-0 nylon. A soft dressing was placed. She was awoken from anesthesia and brought to PACU. We will send her home from PACU. She is weight-bearing as tolerated. She can wear normal footwear. She should follow up with us in 2 weeks for a wound check and suture removal. Complications: none Post-operative Condition: stable Disposition: same day surgery
[2024-10-17] MEDS: ACETAMINOPHEN IV 1,000 MG/100 ML VIAL 400 MG IV (12:36)
== END 2024-10-17 13:43 | disposition home or self-care (01) ==
PROVIDERS: Family Provider Family Medicine; PCP Family Medicine; Referring Provider Orthopaedic Surgery Adult Reconstructive Orthopaedic Surgery; Visit Provider Orthopaedic Surgery Adult Reconstructive Orthopaedic Surgery
PROC: (CPT 20680; principal; 2024-10-17 10:45)
DX: T84.84XA Pain due to internal orthopedic prosthetic devices, implants and grafts, initial encounter (principal)
CPT/HCPCS: 20680; J0131; J0690; J1100; J2405; J2704; J3010

== ENCOUNTER → 2025-02-17 18:59 | Outpatient (CLI) | payer MEDICARE, OTHER, SELFPAY ==
[2023-02-03 14:58] VITALS: BMI 34.7
--- NOTE | 2025-02-17 19:04 | DI.RAD.S_ITS ---
PROCEDURE: XR CHEST 2V INDICATIONS: Cough TECHNIQUE: 2 views of the chest were acquired. COMPARISON: [facility], CR, XR CHEST 1V, 05/13/2021, 13:21. FINDINGS: Surgical changes and devices: None. Lungs and pleura: Diffuse interstitial prominence. Bilateral perihilar airway thickening. No dense consolidation. No substantial pleural effusion. No pneumothorax. Mediastinum: Mediastinal contours are normal. Heart size is normal. Bones and chest wall: No suspicious bony abnormalities. Soft tissues appear unremarkable. IMPRESSION: Diffuse interstitial and perihilar airway thickening likely related to bronchitis either infectious or inflammatory in etiology. No focal consolidation seen. Dictated by: Xander Cevallos M.D. on 02/17/2025 at 20:04 Approved by: Xander Cevallos M.D. on 02/17/2025 at 20:05
== END ==
LOC: RAD 19:02
PROVIDERS: PCP Family Medicine; Referring Provider Nurse Practitioner Family; Visit Provider Nurse Practitioner Family
DX: R05.9 Cough, unspecified (principal)
CPT/HCPCS: 71046